=== PATIENT | female | born 1980 | race Caucasian/White ===

== ENCOUNTER 2018-02-03 15:50 | Emergency (ER) | payer MEDICAID, SELFPAY ==
[2018-02-03 15:52] VITALS: BP 148/84; PULSE 108; RESP 19; TEMP 36.8; O2SAT 97; BMI 18.5
[2018-02-03 17:17] LABS: Absolute Lymphocyte Count 1.84 X10^3/ul (0.83-4.51); Absolute Neutrophil Count 7.9 X10^3/uL (2.0-7.7); Basophil# 0.02 X10^3/uL; Basophil% 0.2 % (0-1); Eosinophil# 0.07 X10^3/uL; Eosinophils% 0.6 % (0-5); Hematocrit 32.9 % (37-47); Hemoglobin 10.8 g/dl (12.0-15.0); Lymphocyte # 1.84 X10^3/ul (4.0); Lymphocyte % 16.5 % (19-41); Mean Corp Hgb Conc 32.8 g/gl (32-36); Mean Corpuscular Hgb 29.3 pg (27.0-32.0); Mean Corpuscular Volume 89.2 fL (81-99); Mean Platelet Vol. 8.8 fl (6.2-12.0); Monocyte# 1.33 X10^3/uL; Monocyte% 11.9 % (0-10); Neutrophil # 7.89 X10^3/uL (2.7-7.7); Neutrophil % 70.7 % (47-70); Platelet Count 228 K/mm3 (150-450); RBC Distribution Width CV 13.5 % (11.6-14.6); RBC Distribution Width SD 44.1 fl (35.1-43.9); Red Blood Count 3.69 M/mm3 (4.2-5.4); White Blood Count 11.2 K/mm3 (4.4-11.0)
[2018-02-03 17:20] LABS: POSITIVE COUNT NO; POSITIVE DIFFERENTIAL NO; POSITIVE MORPHOLOGY NO
[2018-02-03 17:43] LABS: Anion Gap 8 (5-15); BUN 5 mg/dL (7-18); BUN/Creat Ratio 6.6 RATIO (10-20); Calcium,Total 8.3 mg/dL (8.5-10.1); Chloride 100 mmol/L (98-107); Creatinine, Serum 0.76 mg/dL (0.55-1.02); EST Glomerular Filtration Rate 91 mL/min (>60); Est Glom Filt Rate - Afr Amer 110 mL/min (>60); Estimated Creatinine Clearance 82.55 ml/min; Glucose 103 mg/dL (74-106); Potassium 3.7 mmol/L (3.5-5.1); Sodium Level 137 mmol/L (136-145)
--- NOTE | 2018-02-03 19:17 | ED.VISSUMM ---
- ER Visit Summary Date of Service: 02/03/18 Chief Complaint: Swelling pain right side of forehead and wound dorsum right hand History of Present Illness: The patient is a 37 F who has history of IV drug use, heroin, who presents with abscess to the right side of her forehead and picking at her skin. She also has 2 wounds dorsum of her hand. One appears to be secondary to track/injection site the other is not. She denies chills but complains of subjective fever. She denies weight gain or weight loss. She denies night sweats. He does have history of hepatitis C. She is HIV negative. There is a remote history of ovarian cancer status post hysterectomy. Physical Examination: Vital signs are remarkable for heart rate of 108. She is not febrile, tachypneic or hypoxic. Blood pressure 148/84. HEENT exam is remarkable for multiple pick bazzi and a abscess right forehead. There is soft tissue swelling with erythema. There is no abnormality the lid lash or lacrimal apparatus. Pupils equal round reactive. Extraocular muscle intact. Sclerae anicteric. Conjunctive is not injected. There is no evidence of a preseptal cellulitis. There is no pain with movement of the eye and there is full active motion. TMs normal. Nares patent. Dentition is normal. Trachea midline. There is no stridor. Heart is regular without murmur, gallop or rub. Lungs are clear to auscultation. Patient has 2 small abscesses dorsal surface of the right hand. Track bazzi are noted. There is no evidence of phlebitis. There is no epitrochlear or axillary lymphadenopathy. Patient is alert and oriented ?3. Motor is 5 over 5. Sensory is intact. DTRs are symmetric with no clonus or Babinski sign. Cranial 2 through 12 are intact. Cerebellar testing is normal. Test Results: White count is 11.2 thousand 71 segs no bands. Electro panels unremarkable. Emergency Department Course and Treatment: Because she reports subjective fever with history of hole in her heart and IV drug use will obtain CBC and BMP. White count is slightly elevated and she does not meet criteria for sepsis. Treatment Plan: A super overalls last trochlear nerve block was placed on the right. The forehead abscess was incised with a 15 blade. Blunt dissection was undertaken with significant amount of purulent material. Cavity was irrigated and a wick was placed. The 2 small abscesses dorsum right hand were anesthetized. Advised and minimal superficial purulent material noted. Disposition: Discharged home with anti-inflammatory, prescription for cephalexin and Bactrim Impression: 1. Forehead laceration, complex 2. 2 simple small subcutaneous abscesses dorsum right hand 3. Sinus tachycardia 4. IV drug use 5. History of hepatitis C This note was generated with [employer]. dictation software. It may contain incorrect words, spelling, and punctuation that were not noted in review of the chart prior to signing ED Disposition - Plan for ED Patient: Disposition: Home or Assisted Living Chief Complaint: Abscess Instructions: ED Abscess IandD, ED Infec Skin Cellulitis, ED Skin Infec MRSA Suspect Conf Prescriptions: Naproxen [Naprosyn] 500 mg PO BID #14 tablet Smz/Tmp Ds [Bactrim Ds] 1 tablet PO BID #14 tablet Cephalexin 500 mg PO 4X/DAY #20 capsule Referrals: [facility] Doctor,Out of [Primary Care Provider] - Additional Instructions: Since you do not have a physician in the area return in 2 days for wound check and removal of wick. Your prescription was electronically transmitted to [facility] your designated pharmacy of choice.
[2018-02-03 19:41] VITALS: BP 157/114; PULSE 79; RESP 16; O2SAT 100
== END 2018-02-03 19:42 | disposition home or self-care (01) ==
PROVIDERS: Emergency Provider Emergency Medicine
DX: L02.01 Cutaneous abscess of face (principal); L02.511 Cutaneous abscess of right hand; S01.81XA Laceration without foreign body of other part of head, initial encounter; X58.XXXA Exposure to other specified factors, initial encounter; Y93.89 Activity, other specified; Y92.89 Other specified places as the place of occurrence of the external cause; Y99.9 Unspecified external cause status; Z85.43 Personal history of malignant neoplasm of ovary; Z90.710 Acquired absence of both cervix and uterus; Z86.19 Personal history of other infectious and parasitic diseases; R00.0 Tachycardia, unspecified; F14.90 Cocaine use, unspecified, uncomplicated; Z72.0 Tobacco use
CPT/HCPCS: 10060; 80048; 83605; 85025; 99284; A4216

== ENCOUNTER 2018-03-10 10:42 | Observation (INO) | payer MEDICAID, SELFPAY ==
[2018-03-10 10:55] VITALS: BP 133/97; PULSE 75; RESP 16; TEMP 36.5; O2SAT 100; BMI 16.6
[2018-03-10] MEDS: Buprenorphine HCl 2 MG TAB.SUBL SL ×2 (11:08→18:44)
[2018-03-10 11:09] VITALS: BP 133/97; PULSE 75; RESP 16; TEMP 36.5
[2018-03-10] MEDS: Dicyclomine 10 MG Capsule 20 MG PO ×2 (11:15→18:43)
[2018-03-10] MEDS: Methocarbamol 750 MG Tablet PO ×2 (11:15→18:43)
[2018-03-10] MEDS: Ibuprofen 600 MG Tablet PO (11:15)
[2018-03-10] MEDS: Pramipexole Di-HCl 0.25 MG Tablet PO (11:16)
[2018-03-10] MEDS: hydrOXYzine PAM 25 MG Capsule 50 MG PO ×2 (11:16→18:43)
[2018-03-10] MEDS: Ondansetron ODT 4 MG Tablet PO ×2 (11:21→18:44)
--- NOTE | 2018-03-10 11:28 | PCM.HP.STD ---
Problem List (1) Acute opioid withdrawal Status: Acute (2) Hepatitis C Status: Chronic (3) Depression Status: Chronic (4) Nicotine abuse Status: Chronic (5) Hx of ovarian cancer Status: Chronic History of Present Illness Date of Admission: 03/10/18 Chief Complaint: Acute opioid withdrawal. The patient is a 37 year old F with past medical history as mentioned above presented to the [facility] office requesting admission for acute opiate withdrawal for medical stabilization. Patient has been using IV heroin almost every day for the last year and her last dose was yesterday at 2 PM. She has history of opioid abuse back in 2006 after she had ovarian cancer that required surgery and she was able to remain clean for about 4 years. She relapsed back and started using IV heroin again since last year. She denied use of any other recreational drugs. Her presenting symptoms today are body aches, described as dull aching pain, all over her body, 2-3 out of 10 in severity, not radiating, associated with malaise, restlessness and abdominal cramps. She mentioned that she has been having abdominal cramps for the last couple of days, mild, associated with intermittent diarrhea and without aggravating or relieving factors. She had a history of ovarian cancer status post ostectomy and bilateral salpingo-oophorectomy, status post chemotherapy back in 2006 and she has been in remission since then. She has a history of chronic hepatitis C but she never been treated for it. She had a history of anxiety and depression and she has been on Xanax, Wellbutrin and Lexapro for a long time and she has been following up with psychiatry as outpatient. One week ago, she was started on Bactrim for furuncles on the forehead and chin and she was recommended to keep taking Bactrim for 2 weeks, she took 1 week already. At this time, her vital signs are stable. Routine blood work was unremarkable. LFT was normal. Serum test was negative. She is being admitted for acute opiate withdrawal for medical stabilization. Past Medical History Past Medical History (Chronic Problems): Chronic Problems Hepatitis C (Chronic) Depression (Chronic) Nicotine abuse (Chronic) Hx of ovarian cancer (Chronic) Allergies No Known Allergies Allergy (Verified 02/03/18 15:51) Home Medications: Ambulatory Orders Medication Instructions Recorded Escitalopram Oxalate [Lexapro] 20 mg PO DAILY 11/07/16 buPROPion tablets [Wellbutrin 75 mg PO BID 11/07/16 tablets] Acetaminophen [Tylenol Tablet] 650 mg PO Q6H PRN PRN tablet 11/11/16 ALPRAZolam [Xanax] 0.25 mg PO QHS PRN PRN 02/03/18 Naproxen [Naprosyn] 500 mg PO BID #14 tablet 02/03/18 Smz/Tmp Ds [Bactrim Ds] 1 tablet PO BID #14 tablet 02/03/18 Surgical History: hysterectomy, - - section, bilateral salpingo-oophorectomy Psychiatric History: Anxiety, Depression 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 Denies: Anorexia, Chills, Fever, Weakness, Fatigue Eyes: Denies: Blurred vision, Double vision, Drainage, Redness HEENT: Denies: Difficulty Hearing, Ear Pain, Eye Pain, Nasal Congestion, Sore Throat Cardiovascular: Denies: Chest Pain, Chest Pressure, Edema, Light Headedness, Orthopnea, Paroxysmal Noc. Dyspnea, Syncope Respiratory: Denies: Cough, Pleuritic Pain, Shortness of Breath, Sputum production, Wheezing Gastrointestinal: Reports: Diarrhea, Nausea, - - Abdominal cramps.. Denies: Abdominal Pain, Constipation, Hematochezia, Vomiting Genitourinary: Denies: Dysuria, Frequency, Hematuria Musculoskeletal: Reports: Back Pain, Muscle pain. Denies: Arm Pain, Foot Pain Skin: Denies: Dryness, Rash Neurological: Reports: Headaches. Denies: Balance problems, Double vision, Change in Speech, Slurred speech, Confusion, Focal weakness, Numbness, Tingling Psychiatric: Reports: Anxiety, Depression. Denies: Suicidal Ideations Endocrine: Denies: Change in Body Habitus, Polydipsia VTE Information - Inpt Only VTE Present on Admission: No VTE Mechan Device Prophylaxis: None VTE Pharm Prophylaxis ordered?: No Patient Problems: Active and Suspected Problems Acute opioid withdrawal (Acute) - Physical Exam General: Alert, Oriented x3, Cooperative, No apparent distress HEENT: Atraumatic, PERRLA, EOMI, Normocephalic Oral: Moist Mucosa, No Gingival or Mucosal Lesions/ Ulcerations Neck: Supple, No JVD, Negative Carotid Bruits, Trachea Midline, Thyroid Normal Size and Texture Lungs: Clear to auscultation, Normal air movement, No rhonchi, No wheeze, No rales Cardiovascular: Regular rate, Regular Rhythm, Normal S1, Normal S2, No murmurs Abdomen: Bowel Sounds Present, Soft, Non Tender, Non-Distended, No Hepato-splenomegaly Extremities: No clubbing, No cyanosis, No edema Skin: No rashes, No breakdown, - - Healing furuncles on the forehead and chin. Lymphatic: No Cervical, Supraclavicular, or Inguinal Adenopathy Neurological: Cranial nerves II-XII grossly intact, Motor Exam 5/5 strength throughout Psych/Mental Status: Normal Affect, Appropriate, Alert and oriented to time, place, person, mood and affect Vital Signs Temp Pulse Resp BP 97.7 F L 75 16 133/97 H 03/10/18 11:09 03/10/18 11:09 03/10/18 11:03/10/18 11:09 Weight: 103 lb 1 oz Body Mass Index (BMI) 16.6 Assessment/Plan All Active Problems Acute opioid withdrawal (Acute) This is a 37 years old female patient presented to the [facility] office requesting admission for acute opiate withdrawal for medical stabilization. 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 She had a history of drug use in the past in 2006 after she had ovarian cancer and surgeries but she was clean for a few years and relapsed. At this time, her vital signs are stable. Plan: Admit to [facility] floor, regular diet, urine drug screen, blood alcohol level, serum test, initiate [facility] protocol with tapering course of Subutex, as needed Catapres, Bentyl, Vistaril, methocarbamol, Mirapex, Zofran and Motrin. #2 forehead/chin furuncles: She was started on Bactrim 1 week ago and requested to complete 2 weeks of treatment. Furuncles the forehead and chin are healing. No drainage. Plan to continue Bactrim. #3 history of ovarian cancer: Status post hysterectomy and bilateral salpingo-nephrectomy, status post chemotherapy back in 2006, in remission, stable. #4 anxiety/depression: Denied suicidal intentions or ideations, continue Xanax, Wellbutrin and Lexapro. #5 chronic hepatitis C: Never been treated for it. LFT was unremarkable. Recommend referral to infectious disease as outpatient. #6 tobacco abuse: NicoDerm patch 14 mg daily. #7 DVT prophylaxis: Low-risk patient, no prophylaxis indicated. This note was generated with [employer] dictation software. It may contain incorrect words, spelling, and punctuation that were not noted in checking the note before signing. Code Visit Inpatient E&M: 66965 Init Hosp L2
--- NOTE | 2018-03-10 11:33 | HP.PCM_ITS ---
Problem List (1) Acute opioid withdrawal Status: Acute (2) Hepatitis C Status: Chronic (3) Depression Status: Chronic (4) Nicotine abuse Status: Chronic (5) Hx of ovarian cancer Status: Chronic History of Present Illness Date of Admission: 03/10/18 Chief Complaint: Acute opioid withdrawal. The patient is a 37 year old F with past medical history as mentioned above presented to the [facility] office requesting admission for acute opiate withdrawal for medical stabilization. Patient has been using IV heroin almost every day for the last year and her last dose was yesterday at 2 PM. She has history of opioid abuse back in 2006 after she had ovarian cancer that required surgery and she was able to remain clean for about 4 years. She relapsed back and started using IV heroin again since last year. She denied use of any other recreational drugs. Her presenting symptoms today are body aches, described as dull aching pain, all over her body, 2-3 out of 10 in severity, not radiating, associated with malaise, restlessness and abdominal cramps. She mentioned that she has been having abdominal cramps for the last couple of days, mild, associated with intermittent diarrhea and without aggravating or relieving factors. She had a history of ovarian cancer status post ostectomy and bilateral salpingo-oophorectomy, status post chemotherapy back in 2006 and she has been in remission since then. She has a history of chronic hepatitis C but she never been treated for it. She had a history of anxiety and depression and she has been on Xanax, Wellbutrin and Lexapro for a long time and she has been following up with psychiatry as outpatient. One week ago, she was started on Bactrim for furuncles on the forehead and chin and she was recommended to keep taking Bactrim for 2 weeks, she took 1 week already. At this time, her vital signs are stable. Routine blood work was unremarkable. LFT was normal. Serum test was negative. She is being admitted for acute opiate withdrawal for medical stabilization. Past Medical History Past Medical History (Chronic Problems): Chronic Problems Hepatitis C (Chronic) Depression (Chronic) Nicotine abuse (Chronic) Hx of ovarian cancer (Chronic) Allergies No Known Allergies Allergy (Verified 02/03/18 15:51) Home Medications: Ambulatory Orders Medication Instructions Recorded Escitalopram Oxalate [Lexapro] 20 mg PO DAILY 11/07/16 buPROPion tablets [Wellbutrin 75 mg PO BID 11/07/16 tablets] Acetaminophen [Tylenol Tablet] 650 mg PO Q6H PRN PRN tablet 11/11/16 ALPRAZolam [Xanax] 0.25 mg PO QHS PRN PRN 02/03/18 Naproxen [Naprosyn] 500 mg PO BID #14 tablet 02/03/18 Smz/Tmp Ds [Bactrim Ds] 1 tablet PO BID #14 tablet 02/03/18 Surgical History: hysterectomy, - - section, bilateral salpingo- oophorectomy Psychiatric History: Anxiety, Depression 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 Denies: Anorexia, Chills, Fever, Weakness, Fatigue Eyes: Denies: Blurred vision, Double vision, Drainage, Redness HEENT: Denies: Difficulty Hearing, Ear Pain, Eye Pain, Nasal Congestion, Sore Throat Cardiovascular: Denies: Chest Pain, Chest Pressure, Edema, Light Headedness, Orthopnea, Paroxysmal Noc. Dyspnea, Syncope Respiratory: Denies: Cough, Pleuritic Pain, Shortness of Breath, Sputum production, Wheezing Gastrointestinal: Reports: Diarrhea, Nausea, - - Abdominal cramps.. Denies: Abdominal Pain, Constipation, Hematochezia, Vomiting Genitourinary: Denies: Dysuria, Frequency, Hematuria Musculoskeletal: Reports: Back Pain, Muscle pain. Denies: Arm Pain, Foot Pain Skin: Denies: Dryness, Rash Neurological: Reports: Headaches. Denies: Balance problems, Double vision, Change in Speech, Slurred speech, Confusion, Focal weakness, Numbness, Tingling Psychiatric: Reports: Anxiety, Depression. Denies: Suicidal Ideations Endocrine: Denies: Change in Body Habitus, Polydipsia VTE Information - Inpt Only VTE Present on Admission: No VTE Mechan Device Prophylaxis: None VTE Pharm Prophylaxis ordered?: No Patient Problems: Active and Suspected Problems Acute opioid withdrawal (Acute) - Physical Exam General: Alert, Oriented x3, Cooperative, No apparent distress HEENT: Atraumatic, PERRLA, EOMI, Normocephalic Oral: Moist Mucosa, No Gingival or Mucosal Lesions/ Ulcerations Neck: Supple, No JVD, Negative Carotid Bruits, Trachea Midline, Thyroid Normal Size and Texture Lungs: Clear to auscultation, Normal air movement, No rhonchi, No wheeze, No rales Cardiovascular: Regular rate, Regular Rhythm, Normal S1, Normal S2, No murmurs Abdomen: Bowel Sounds Present, Soft, Non Tender, Non-Distended, No Hepato-splenomegaly Extremities: No clubbing, No cyanosis, No edema Skin: No rashes, No breakdown, - - Healing furuncles on the forehead and chin. Lymphatic: No Cervical, Supraclavicular, or Inguinal Adenopathy Neurological: Cranial nerves II-XII grossly intact, Motor Exam 5/5 strength throughout Psych/Mental Status: Normal Affect, Appropriate, Alert and oriented to time, place, person, mood and affect Vital Signs Temp Pulse Resp BP 97.7 F L 75 16 133/97 H 03/10/18 11:09 03/10/18 11:09 03/10/18 11:03/10/18 11:09 Weight: 103 lb 1 oz Body Mass Index (BMI) 16.6 Assessment/Plan All Active Problems Acute opioid withdrawal (Acute) This is a 37 years old female patient presented to the [facility] office requesting admission for acute opiate withdrawal for medical stabilization. 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 She had a history of drug use in the past in 2006 after she had ovarian cancer and surgeries but she was clean for a few years and relapsed. At this time, her vital signs are stable. Plan: Admit to [facility] floor, regular diet, urine drug screen, blood alcohol level, serum test, initiate [facility] protocol with tapering course of Subutex, as needed Catapres, Bentyl, Vistaril, methocarbamol, Mirapex, Zofran and Motrin. #2 forehead/chin furuncles: She was started on Bactrim 1 week ago and requested to complete 2 weeks of treatment. Furuncles the forehead and chin are healing. No drainage. Plan to continue Bactrim. #3 history of ovarian cancer: Status post hysterectomy and bilateral salpingo- nephrectomy, status post chemotherapy back in 2006, in remission, stable. #4 anxiety/depression: Denied suicidal intentions or ideations, continue Xanax, Wellbutrin and Lexapro. #5 chronic hepatitis C: Never been treated for it. LFT was unremarkable. Recommend referral to infectious disease as outpatient. #6 tobacco abuse: NicoDerm patch 14 mg daily. #7 DVT prophylaxis: Low-risk patient, no prophylaxis indicated. This note was generated with [employer] dictation software. It may contain incorrect words, spelling, and punctuation that were not noted in checking the note before signing. Code Visit Inpatient E&M: 67633 Init Hosp L2
[2018-03-10 11:39] LABS: Absolute Lymphocyte Count 1.96 X10^3/ul (0.83-4.51); Absolute Neutrophil Count 5.6 X10^3/uL (2.0-7.7); Basophil# 0.02 X10^3/uL; Basophil% 0.2 % (0-1); Eosinophil# 0.07 X10^3/uL; Eosinophils% 0.8 % (0-5); Hematocrit 37.4 % (37-47); Hemoglobin 12.5 g/dl (12.0-15.0); Lymphocyte # 1.96 X10^3/ul (4.0); Lymphocyte % 23.3 % (19-41); Mean Corp Hgb Conc 33.4 g/gl (32-36); Mean Corpuscular Hgb 29.8 pg (27.0-32.0); Mean Platelet Vol. 9.5 fl (6.2-12.0); Monocyte# 0.73 X10^3/uL; Monocyte% 8.7 % (0-10); Neutrophil % 66.8 % (47-70); Platelet Count 290 K/mm3 (150-450); RBC Distribution Width CV 13.6 % (11.6-14.6); RBC Distribution Width SD 43.7 fl (35.1-43.9); White Blood Count 8.4 K/mm3 (4.4-11.0)
[2018-03-10 11:40] LABS: POSITIVE COUNT NO; POSITIVE DIFFERENTIAL NO; POSITIVE MORPHOLOGY NO
[2018-03-10 11:51] LABS: ALB/GLOB Ratio 0.7 RATIO (0.9-2.4); AST(SGOT) 15 U/L (15-37); Alanine Aminotransfer ALT/SGPT 30 U/L (13-56); Albumin, Serum 3.2 g/dL (3.2-5.0); Alkaline Phosphatase 67 U/L (45-117); Anion Gap 5 (5-15); BUN 6 mg/dL (7-18); BUN/Creat Ratio 7.2 RATIO (10-20); Calcium,Total 8.9 mg/dL (8.5-10.1); Chloride 104 mmol/L (98-107); Creatinine, Serum 0.84 mg/dL (0.55-1.02); EST Glomerular Filtration Rate 81 mL/min (>60); Est Glom Filt Rate - Afr Amer 98 mL/min (>60); Estimated Creatinine Clearance 67.01 ml/min; Globulin 4.8 g/dL (2.2-4.2); Glucose 102 mg/dL (74-106); Sodium Level 139 mmol/L (136-145)
[2018-03-10 12:22] LABS: Pregnancy, Serum, hCG Quali. NEGATIVE Negative (0-9 Nonpreg)
[2018-03-10 14:00] VITALS: BP 123/81; PULSE 70; RESP 16; TEMP 36.9; O2SAT 99
[2018-03-10] MEDS: cloNIDine HCl 0.1 MG Tablet PO ×2 (14:41→21:06)
[2018-03-10] MEDS: Smz/Tmp Ds Tablet 1 TABLET PO ×2 (14:41→21:06)
[2018-03-10 18:30] VITALS: BP 110/76; PULSE 78; RESP 16; TEMP 36.6; O2SAT 99
[2018-03-10] MEDS: buPROPion 75 MG Tablet PO (21:05)
[2018-03-10] MEDS: ALPRAZolam 0.25 MG Tablet PO (21:06)
[2018-03-10 21:24] VITALS: BP 108/68; PULSE 62; RESP 14; TEMP 36.9
[2018-03-10 21:47] LABS: Amphetamine Urine VISTA NEGATIVE (<1000 ng/mL); Barbiturate Urine VISTA NEGATIVE (< 200 ng/mL); Benzodiazepine Urine VISTA NEGATIVE (< 200 ng/mL); Cocaine Urine VISTA POSITIVE (< 300 ng/mL); Ecstacy Urine VISTA NEGATIVE (< 500 ng/mL); Methadone Urine VISTA NEGATIVE (< 300 ng/mL); PCP Urine VISTA NEGATIVE (< 25 ng/mL); THC Urine VISTA NEGATIVE (< 50 ng/mL); Vista UDS pH Range 7
[2018-03-11] VITALS (7 sets, daily range): BP systolic 90–118; BP diastolic 60–79; PULSE 61–74; RESP 14–18; TEMP 36.2–37.1; O2SAT 99–100
[2018-03-11] MEDS: Dicyclomine 10 MG Capsule 20 MG PO ×2 (01:45→09:00)
[2018-03-11] MEDS: Methocarbamol 750 MG Tablet PO ×4 (01:51→21:48)
[2018-03-11] MEDS: Buprenorphine HCl 2 MG TAB.SUBL SL ×3 (03:46→18:44)
[2018-03-11] MEDS: hydrOXYzine PAM 25 MG Capsule 50 MG PO ×3 (03:55→18:44)
--- NOTE | 2018-03-11 08:11 | PN_ITS ---
Patient Problems: Active and Suspected Problems Acute opioid withdrawal (Acute) Subjective: Chief complaint: Follow-up after admission for acute opioid withdrawal for medical stabilization. Patient seen and examined. No acute events overnight. She is still symptomatic with body aches, rhinorrhea, abdominal cramps and nausea. She could not sleep last night. Her vital signs are stable. - Physical Exam General: Alert, Oriented x3, Cooperative, No apparent distress HEENT: Atraumatic, PERRLA, EOMI, Normocephalic Oral: Moist Mucosa, No Gingival or Mucosal Lesions/ Ulcerations Neck: Supple, No JVD, Negative Carotid Bruits, Trachea Midline Lungs: Clear to auscultation, Normal air movement, No rhonchi, No wheeze, No rales Cardiovascular: Regular rate, Regular Rhythm, Normal S1, Normal S2, PMI Normal Abdomen: Bowel Sounds Present, Soft, Non Tender, Non-Distended, No Hepato- splenomegaly Extremities: No clubbing, No cyanosis, No edema Skin: No rashes, No breakdown Lymphatic: No Cervical, Supraclavicular, or Inguinal Adenopathy Neurological: Cranial nerves II-XII grossly intact, Neuro grossly intact Psych/Mental Status: Normal Affect, Anxious, Alert and oriented to time, place, person, mood and affect Vital Signs Temp Pulse Resp BP Pulse Ox 97.5 F L 73 14 94/61 99 03/11/18 05:34 03/11/18 05:34 03/11/18 05:34 03/11/18 05:34 03/10/18 18:30 Oxygen Delivery Method Room Air Weight: 103 lb 1 oz Body Mass Index (BMI) 16.6 Intake and Output for Last 24 Hours 03/09/18 03/10/18 03/11/18 23:59 23:59 23:59 Intake Total 200 / 200 800 / 800 Balance 200 / 200 800 / 800 Laboratory Tests Past 24 Hrs 03/10/18 03/10/18 03/10/18 11:15 11:15 11:15 WBC 8.4 RBC 4.20 Hgb 12.5 Hct 37.4 MCV 89.0 MCH 29.8 MCHC 33.4 RDW 13.6 RDW Differential 43.7 Plt Count 290 MPV 9.5 Immature Gran % (Auto) 0.200 Neut % (Auto) 66.8 Lymph % (Auto) 23.3 Miner % (Auto) 8.7 Eos % (Auto) 0.8 Baso % (Auto) 0.2 Absolute Neuts (auto) 5.6 Absolute Lymphs (auto) 1.96 Total Counted Not Reportable Sodium 139 Potassium 4.0 Chloride 104 Carbon Dioxide 30.0 Anion Gap 5 BUN 6 L Creatinine 0.84 Estim Creat Clear Calc 67.01 Est GFR (MDRD) Af Amer 98 Est GFR (MDRD) Non-Af 81 BUN/Creatinine Ratio 7.2 L Glucose 102 Calcium 8.9 Total Bilirubin 0.30 AST 15 ALT 30 Alkaline Phosphatase 67 Total Protein 8.0 Albumin 3.2 Globulin 4.8 H Albumin/Globulin Ratio 0.7 L Serum , Qual Urine Opiates Screen Urine Methadone Screen Ur Barbiturates Screen Ur Phencyclidine Scrn Ur Amphetamines Screen U Methamphetamin-MDMA U Benzodiazepines Scrn Urine Cocaine Screen U Cannabinoids Screen Ur Drug Screen Comment Ethyl Alcohol 7.0 03/10/18 03/10/18 11:15 21:20 WBC RBC Hgb Hct MCV MCH MCHC RDW RDW Differential Plt Count MPV Immature Gran % (Auto) Neut % (Auto) Lymph % (Auto) Miner % (Auto) Eos % (Auto) Baso % (Auto) Absolute Neuts (auto) Absolute Lymphs (auto) Total Counted Sodium Potassium Chloride Carbon Dioxide Anion Gap BUN Creatinine Estim Creat Clear Calc Est GFR (MDRD) Af Amer Est GFR (MDRD) Non-Af BUN/Creatinine Ratio Glucose Calcium Total Bilirubin AST ALT Alkaline Phosphatase Total Protein Albumin Globulin Albumin/Globulin Ratio Serum , Qual NEGATIVE Urine Opiates Screen POSITIVE H Urine Methadone Screen NEGATIVE Ur Barbiturates Screen NEGATIVE Ur Phencyclidine Scrn NEGATIVE Ur Amphetamines Screen NEGATIVE U Methamphetamin-MDMA NEGATIVE U Benzodiazepines Scrn NEGATIVE Urine Cocaine Screen POSITIVE H U Cannabinoids Screen NEGATIVE Ur Drug Screen Comment Ethyl Alcohol Medical Necessity - Tobacco Use Smoking Status: Current every day smoker Assessment/Plan All Active Problems Acute opioid withdrawal (Acute) This is a 37 years old female patient presented to the [facility] office requesting admission for acute opiate withdrawal for medical stabilization. #1 acute opioid withdrawal: She is on tapering course of Subutex, as needed Catapres, Bentyl, Vistaril, methocarbamol, Mirapex, Zofran and Motrin. Her routine blood work was unremarkable. LFT was normal. Serum test was negative. Urine drug screen was positive for opioids and cocaine. Blood alcohol level is 7. Patient still symptomatic, minimal improvement. Plan: Continue same treatment, start Ambien as needed for insomnia. #2 forehead/chin furuncles: She was started on Bactrim 1 week ago and requested to complete 2 weeks of treatment. Continued on Bactrim. #3 history of ovarian cancer: Status post hysterectomy and bilateral salpingo- nephrectomy, status post chemotherapy back in 2006, in remission, stable. #4 anxiety/depression: Denied suicidal intentions or ideations, continue Xanax, Wellbutrin and Lexapro. #5 chronic hepatitis C: Never been treated for it. LFT was unremarkable. Recommend referral to infectious disease as outpatient. #6 tobacco abuse: NicoDerm patch 14 mg daily. #7 DVT prophylaxis: Low-risk patient, no prophylaxis indicated. This note was generated with [employer] dictation software. It may contain incorrect words, spelling, and punctuation that were not noted in checking the note before signing. Code Visit Inpatient E&M: 17780 Subs Hosp L2
[2018-03-11] MEDS: Escitalopram Oxalate 20 MG Tablet PO (09:00)
[2018-03-11] MEDS: buPROPion 75 MG Tablet PO ×2 (09:00→21:48)
[2018-03-11] MEDS: Smz/Tmp Ds Tablet 1 TABLET PO ×2 (09:00→18:44)
[2018-03-11] MEDS: Pramipexole Di-HCl 0.25 MG Tablet PO ×2 (09:01→21:48)
[2018-03-11] MEDS: Ondansetron ODT 4 MG Tablet PO ×2 (09:01→18:44)
[2018-03-11] MEDS: cloNIDine HCl 0.1 MG Tablet PO ×2 (14:34→21:48)
[2018-03-11] MEDS: Acetaminophen 500 MG Tablet PO (18:44)
[2018-03-11] MEDS: Zolpidem Tartrate 5 MG Tablet PO (21:48)
[2018-03-11] MEDS: ALPRAZolam 0.25 MG Tablet PO (23:56)
[2018-03-12] VITALS (8 sets, daily range): BP systolic 92–103; BP diastolic 58–71; PULSE 62–70; RESP 14–18; TEMP 36.4–37.2; O2SAT 98–99
[2018-03-12] MEDS: Buprenorphine HCl 2 MG TAB.SUBL SL ×2 (03:39→15:10)
[2018-03-12] MEDS: Ondansetron ODT 4 MG Tablet PO ×2 (03:39→20:42)
[2018-03-12] MEDS: hydrOXYzine PAM 25 MG Capsule 50 MG PO ×3 (03:39→20:42)
[2018-03-12] MEDS: cloNIDine HCl 0.1 MG Tablet PO ×5 (03:39→20:42)
--- NOTE | 2018-03-12 08:03 | PCM.PROGNOTE ---
Patient Problems: Active and Suspected Problems Acute opioid withdrawal (Acute) Subjective: Chief complaint: Follow-up after admission for acute opiate withdrawal. Patient seen and examined. No acute events overnight. Today, she mentioned that her symptoms started to improve, having less abdominal cramps and nausea. Still having some restlessness and tremors. Her vital signs are stable. - Physical Exam General: Alert, Oriented x3, Cooperative, No apparent distress HEENT: Atraumatic, PERRLA, EOMI, Normocephalic Oral: Moist Mucosa, No Gingival or Mucosal Lesions/ Ulcerations Neck: Supple, No JVD, Negative Carotid Bruits, Trachea Midline, Thyroid Normal Size and Texture Lungs: Clear to auscultation, Normal air movement, No rhonchi, No wheeze, No rales Cardiovascular: Regular rate, Regular Rhythm, Normal S1, Normal S2, No murmurs Abdomen: Bowel Sounds Present, Soft, Non Tender, Non-Distended, No Hepato-splenomegaly Extremities: No clubbing, No cyanosis, No edema Skin: No rashes, No breakdown Lymphatic: No Cervical, Supraclavicular, or Inguinal Adenopathy Neurological: Cranial nerves II-XII grossly intact, Neuro grossly intact Psych/Mental Status: Normal Affect, Appropriate Vital Signs Temp Pulse Resp BP Pulse Ox 98.0 F 66 14 103/66 99 03/12/18 03:35 03/12/18 03:35 03/12/18 03:35 03/12/18 03:35 03/11/18 14:40 Oxygen Delivery Method Room Air Weight: 103 lb 1 oz Body Mass Index (BMI) 16.6 Intake and Output for Last 24 Hours 03/10/18 03/11/18 03/12/18 23:59 23:59 23:59 Intake Total 200 / 200 1640 / 1640 100 / 100 Balance 200 / 200 1640 / 1640 100 / 100 Medical Necessity - Tobacco Use Smoking Status: Current every day smoker Tobacco Use: Cigarettes Assessment/Plan All Active Problems Acute opioid withdrawal (Acute) This is a 37 years old female patient presented to the [facility] office requesting admission for acute opiate withdrawal for medical stabilization. #1 acute opioid withdrawal: Her symptoms started to improve, feeling slightly better. She is on tapering course of Subutex, as needed Catapres, Bentyl, Vistaril, methocarbamol, Mirapex, Zofran and Motrin. Her routine blood work was unremarkable. LFT was normal. Serum test was negative. Urine drug screen was positive for opioids and cocaine. Plan to continue same treatment, DC home tomorrow. #2 forehead/chin furuncles: She was started on Bactrim 1 week ago and requested to complete 2 weeks of treatment. Continued on Bactrim. #3 history of ovarian cancer: Status post hysterectomy and bilateral salpingo-nephrectomy, status post chemotherapy back in 2006, in remission, stable. #4 anxiety/depression: Denied suicidal intentions or ideations, continue Xanax, Wellbutrin and Lexapro. #5 chronic hepatitis C: Never been treated for it. LFT was unremarkable. Recommend referral to infectious disease as outpatient. #6 tobacco abuse: NicoDerm patch 14 mg daily. #7 DVT prophylaxis: Low-risk patient, no prophylaxis indicated. This note was generated with [employer] dictation software. It may contain incorrect words, spelling, and punctuation that were not noted in checking the note before signing. Code Visit Inpatient E&M: 00858 Subs Hosp L2
[2018-03-12] MEDS: Smz/Tmp Ds Tablet 1 TABLET PO ×2 (08:59→16:09)
[2018-03-12] MEDS: buPROPion 75 MG Tablet PO ×2 (09:00→20:43)
[2018-03-12] MEDS: Methocarbamol 750 MG Tablet PO ×2 (09:00→17:43)
[2018-03-12] MEDS: Escitalopram Oxalate 20 MG Tablet PO (09:00)
[2018-03-12] MEDS: Ibuprofen 600 MG Tablet PO ×2 (12:50→20:50)
[2018-03-12] MEDS: Dicyclomine 10 MG Capsule 20 MG PO (15:10)
[2018-03-12] MEDS: Pramipexole Di-HCl 0.25 MG Tablet PO (15:10)
[2018-03-12] MEDS: Acetaminophen 500 MG Tablet PO (15:10)
[2018-03-12] MEDS: ALPRAZolam 0.25 MG Tablet PO (20:42)
[2018-03-13] MEDS: Methocarbamol 750 MG Tablet PO ×2 (00:44→06:51)
[2018-03-13] MEDS: Zolpidem Tartrate 5 MG Tablet PO (00:44)
[2018-03-13 03:05] VITALS: BP 84/50; PULSE 63; RESP 18; TEMP 36.6; O2SAT 99
[2018-03-13] MEDS: Pramipexole Di-HCl 0.25 MG Tablet PO (03:11)
[2018-03-13] MEDS: Dicyclomine 10 MG Capsule 20 MG PO (03:11)
[2018-03-13] MEDS: Buprenorphine HCl 2 MG TAB.SUBL SL (03:11)
[2018-03-13] MEDS: hydrOXYzine PAM 25 MG Capsule 50 MG PO ×2 (03:11→09:17)
[2018-03-13 06:49] VITALS: BP 89/50; PULSE 61; RESP 18; TEMP 36.8; O2SAT 98
[2018-03-13 06:50] VITALS: BP 89/50; PULSE 61; RESP 18; TEMP 36.8
[2018-03-13 08:08] VITALS: BP 91/56; PULSE 64; RESP 16; TEMP 36.3
[2018-03-13] MEDS: Docusate Sodium 100 MG Capsule PO (08:19)
[2018-03-13] MEDS: buPROPion 75 MG Tablet PO (08:19)
[2018-03-13] MEDS: Escitalopram Oxalate 20 MG Tablet PO (08:19)
[2018-03-13] MEDS: Smz/Tmp Ds Tablet 1 TABLET PO (08:19)
[2018-03-13] MEDS: Ibuprofen 600 MG Tablet PO (08:21)
--- NOTE | 2018-03-13 08:44 | DCINST_ITS ---
- Discharge Diagnoses Current Active Problems: Current Active and Chronic Problems Acute opioid withdrawal (Acute) Hepatitis C (Chronic) You will use the following diet at home:: Regular Your food should be the consistency of: Regular Discharge Activity: Return to Normal Activity Weight Bearing Status: Full weight bearing Call your doctor if you observe: Fever of 101 or Higher, Shortness of breath, Dizziness, Fainting spells, Chest pain, Increased palpitations (irregular heartbeat), Uncontrolled pain Allergies/Adverse Reactions: Allergies No Known Allergies Allergy (Verified 02/03/18 15:51) Medications to take at Discharge Escitalopram Oxalate [Lexapro] 20 mg PO DAILY 11/07/16 buPROPion tablets [Wellbutrin tablets] 75 mg PO BID 11/07/16 Acetaminophen [Tylenol Tablet] 650 mg PO Q6H PRN PRN tablet 11/11/16 ALPRAZolam [Xanax] 0.25 mg PO QHS PRN PRN 02/03/18 Naproxen [Naprosyn] 500 mg PO BID #14 tablet 02/03/18 Smz/Tmp Ds [Bactrim Ds] 1 tablet PO BID #14 tablet 02/03/18 Primary Care Physician: Veronica Mello,Out of [Primary Care Provider] - Please follow up with your Primary Care Physician in: 2-4 weeks. Test Results: Test results from this visit will be discussed in further detail at your follow- up appointment, if applicable.
--- NOTE | 2018-03-13 11:59 | DS.PCM_ITS ---
Discharge Date and Diagnosis Date of Admission: 03/10/18 Date of Discharge: 03/13/18 - Primary Discharge Diagnosis Acute opioid withdrawal, admitted for medical stabilization. - Secondary Discharge Diagnosis Chronic Problems Hepatitis C (Chronic) Depression (Chronic) Nicotine abuse (Chronic) Hx of ovarian cancer (Chronic) Hospital Course and Treatment Operations: None Procedures: None Summary of Care Provided: Patient seen and examined on the day of discharge and appeared to be stable to be discharged home. Her symptoms continued to improve and today, she is feeling much better. Her blood pressure was borderline low but she was asymptomatic. She mentioned that her blood pressure is usually running low. Other vital signs are stable. The patient is a 37 year old F admitted for acute opiate withdrawal for medical stabilization. Her presenting complaints were body aches, malaise, restlessness and abdominal cramps as well as mild diarrhea. 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 In the past, she has been clean for a few years but she relapsed. Her routine blood work was unremarkable. LFT was normal. Serum test was negative. Urine drug screen was positive for opioids and cocaine. Blood alcohol level is 7. She was treated with [facility] protocol with tapering course of Subutex, as needed Catapres, Bentyl, Vistaril, methocarbamol, Mirapex, Zofran and Motrin. With treatment, his symptoms did improve slowly. She completed tapering course of Subutex successively. Patient discharged home in a stable medical condition, continued on her chronic home medications without any changes, continued on Bactrim for face/chin furuncles that was started as outpatient, continued on Xanax, Wellbutrin and Lexapro, recommended follow-up with PCP in 2-4 weeks, recommended to keep in touch with [facility] program. - Physical Exam General: Alert, Oriented x3, Cooperative, No apparent distress HEENT: Atraumatic, PERRLA, EOMI, Normocephalic Oral: Moist Mucosa, No Gingival or Mucosal Lesions/ Ulcerations Neck: Supple, No JVD, Negative Carotid Bruits, Trachea Midline, Thyroid Normal Size and Texture Lungs: Clear to auscultation, Normal air movement, No rhonchi, No wheeze, No rales Cardiovascular: Regular rate, Regular Rhythm, Normal S1, Normal S2, PMI Normal Abdomen: Bowel Sounds Present, Soft, Non Tender, Non-Distended, No Hepato- splenomegaly Extremities: No clubbing, No cyanosis, No edema Skin: No rashes, No breakdown Lymphatic: No Cervical, Supraclavicular, or Inguinal Adenopathy Neurological: Cranial nerves II-XII grossly intact, Neuro grossly intact Psych/Mental Status: Normal Affect, Appropriate Vital Signs Temp Pulse Resp BP Pulse Ox 97.4 F L 64 16 91/56 L 98 03/13/18 08:08 03/13/18 08:08 03/13/18 08:08 03/13/18 08:08 03/13/18 06:49 Oxygen Delivery Method Room Air Weight: 103 lb 1 oz Body Mass Index (BMI) 16.6 Intake and Output for Last 24 Hours 03/11/18 03/12/18 03/13/18 23:59 23:59 23:59 Intake Total 1640 / 1640 1000 / 1000 680 / 680 Balance 1640 / 1640 1000 / 1000 680 / 680 Discharge Activity: Return to Normal Activity Weight Bearing Status: Full weight bearing Call your doctor if you observe: Fever of 101 or Higher, Shortness of breath, Dizziness, Fainting spells, Chest pain, Increased palpitations (irregular heartb eat), Uncontrolled pain Home Medications: Medications to take at Discharge Escitalopram Oxalate [Lexapro] 20 mg PO DAILY 11/07/16 buPROPion tablets [Wellbutrin tablets] 75 mg PO BID 11/07/16 Acetaminophen [Tylenol Tablet] 650 mg PO Q6H PRN PRN tablet 11/11/16 ALPRAZolam [Xanax] 0.25 mg PO QHS PRN PRN 02/03/18 Naproxen [Naprosyn] 500 mg PO BID #14 tablet 02/03/18 Smz/Tmp Ds [Bactrim Ds] 1 tablet PO BID #14 tablet 02/03/18 Primary Care Physician: Veronica Mello,Out of [Primary Care Provider] - Please follow up with your Primary Care Physician in: 2-4 weeks. Disposition: Home Minutes spent on discharge:: 25 Patient Condition:: Stable Medical Necessity - Tobacco Use Smoking Status: Current every day smoker Tobacco Use: Cigarettes Meaningful Use Info Meaningful Use Diagnoses (Choose all that apply): None applicable Code Visit Inpatient E&M: 13777 Disch Hosp
--- OUTSIDE RECORDS SUMMARY | 2018-04-26 11:26 | XMS RPT_ITS ---
:1980 Author Organization OHIP Support Name Relationship Address Phone TAMMI SANTIZO Unavailable Unavailable + TAMIKO GARCIA Unavailable [address] + [place] [address] UE Unavailable Unavailable Unavailable RACHEL, VALERIE Unavailable Unavailable + RADHATAMIKO Unavailable [address] + [place] [address] UE Unavailable Unavailable Unavailable RACHEL, VALERIE Unavailable Unavailable + RADHATAMIKO Unavailable [address] + [place] [address] UE Unavailable Unavailable Unavailable RACHEL VALERIE Unavailable Unavailable + RADHATAMIKO Unavailable [address] + [place] [address] UE Unavailable Unavailable Unavailable RACHEL VALERIE Unavailable Unavailable + RADHATAMIKO Unavailable [address] + [place] [address] UE Unavailable Unavailable Unavailable RACHEL VALERIE Unavailable Unavailable + TAMIKO CARLISLE Unavailable [address] + [place] [address] NOT GIVEN Unavailable Unavailable Unavailable RADHATAMIKO Unavailable [address] + [place] [address] UE Unavailable Unavailable Unavailable RACHEL, VALERIE Unavailable Unavailable + TAMIKO CARLISLE Unavailable [address] + [place] [address] NOT GIVEN Unavailable Unavailable Unavailable GHISLAINE MORRIS Unavailable Unavailable + TAMIKO CARLISLE Unavailable [address] [facility] + [place] [address] NOT GIVEN Unavailable Unavailable Unavailable TAMIKO CARLISLE Unavailable [address] [facility] + [place] [address] NOT GIVEN Unavailable Unavailable Unavailable GHISLAINE MORRIS Unavailable Unavailable + LAURA TRIPLETT Unavailable Unavailable + MICHELA MORRIS Unavailable Unavailable + GHISLAINE MORRIS Unavailable Unavailable + SEGHERMAN SUKHDEV Unavailable Unavailable + SEGRAVES SUKHDEV Unavailable Unavailable + Care Team Providers Name Role Phone [facility] Primary Care Unavailable [facility] Primary Care Unavailable SABRINA RAMIREZ Admitting Unavailable SANDRO MENDES Consulting Unavailable KOLCLIFFORDRU, CALEB Attending Unavailable LETICIA HILARIO Consulting Unavailable [facility] Primary Care Unavailable KOLLURU, CALEB Admitting Unavailable KOLCLIFFORDRU, CALEB Attending Unavailable [facility] Primary Care Unavailable AWILDA LACKEY Consulting Unavailable AWILDA LACKEY Attending Unavailable [facility] Unavailable Nolan, Dr. Annika Torres Admitting Unavailable Nolan, Dr. Annika Torres Attending Unavailable Nolan, Dr. Annika Torres Referring Unavailable NATALEE ONOFRE Primary Care Unavailable Ramirez, Darian Attending Unavailable Ashelfah, Ghasem Admitting Unavailable Ashelfah, Ghasem Attending Unavailable Ashelfah, Ghasem Referring Unavailable NATALEE ONOFRE Primary Care Unavailable Ashelfah, Ghasem Admitting Unavailable Ashelfah, Ghasem Attending Unavailable Ashelfah, Ghasem Referring Unavailable NATALEE ONOFRE Primary Care Unavailable Ashelfah, Ghasem Consulting Unavailable Ashelfah, Ghasem Admitting Unavailable Ashelfah, Ghasem Attending Unavailable Ashelfah, Ghasem Referring Unavailable NATALEE ONOFRE Primary Care Unavailable Ashelfah, Ghasem Consulting Unavailable Ashelfah, Ghasem Admitting Unavailable Ashelfah, Ghasem Attending Unavailable Ashelfah, Ghasem Referring Unavailable NATALEE ONOFRE Primary Care Unavailable Ashelfah, Ghasem Consulting Unavailable Ashelfah, Ghasem Admitting Unavailable Ashelfah, Ghasem Attending Unavailable Ashelfah, Ghasem Referring Unavailable NATALEE ONOFRE Primary Care Unavailable Ashelfah, Ghasem Consulting Unavailable Star SIDDIQUI DO Attending Unavailable DANY RIZZO, LISA Primary Care Unavailable DANY RIZZO, LISA Attending Unavailable LISA SAENZ MD Referring Unavailable LISA SAENZ MD Primary Care Unavailable JAX WEBB MD Attending Unavailable DANY RIZZO, LISA Primary Care Unavailable PROVIDER, UNKNOWN Admitting Unavailable PROVIDER, UNKNOWN Attending Unavailable PROVIDER, UNKNOWN Admitting Unavailable PROVIDER, UNKNOWN Attending Unavailable PROVIDER, UNKNOWN Admitting Unavailable PROVIDER, UNKNOWN Attending Unavailable PROBLEMS PROBLEMS DATE TYPE CONDITION / CODE ATTENDING STATUS SOURCE 04/12/2018 Active Encounter for Unknown Active [facility] screening for System respiratory Repository tuberculosis / Z11.1(ICD-10) 02/15/2018 Principle Other specified DARYA [facility] Regional diagnosis eating disorder / [facility] F50.89(ICD-10) Repository 09/24/2017 Admitting Nausea with MAURILIO CALEB Active [facility] diagnosis vomiting, Medical Center unspecified / Repository R11.2(ICD-10) 09/23/2017 Principle Noninfective NA Active [facility] Regional diagnosis gastroenteritis and Medical Center colitis, unspecified Repository / K52.9(ICD-10) 09/23/2017 Principle Nausea with NA Active [facility] Regional diagnosis vomiting, Medical Center unspecified / Repository R11.2(ICD-10) 09/23/2017 Principle Dehydration / NA Active [facility] Regional diagnosis E86.0(ICD-10) Medical Center Repository 08/28/2017 Admitting Cutaneous abscess of Dr. Nolan Active University diagnosis right upper limb / [facility] L02.413(ICD-10) [place] Repository 08/28/2017 Final Cutaneous abscess of Dr. Nolan Active University diagnosis right hand / [facility] (discharge) L02.511(ICD-10) [place] Repository 08/28/2017 Final Cutaneous abscess of Dr. Nolan Active University diagnosis right upper limb / [facility] (discharge) L02.413(ICD-10) [place] Repository 08/28/2017 Final Cutaneous abscess of Dr. Nolan Active University diagnosis left upper limb / [facility] (discharge) L02.414(ICD-10) [place] Repository 08/28/[address] Nolan Active University diagnosis staph infct causing [facility] (discharge) diseases classd [place] Repository elswhr / B95.62(ICD-10) 08/28/2017 Final Nicotine dependence, Dr. Nolan Active University diagnosis cigarettes, [facility] (discharge) uncomplicated / [facility] Rep[facility] F17.210(ICD-10) 08/28/2017 Final Anemia, unspecified Dr. Nolan Active University diagnosis / D64.9(ICD-10) [facility] (discharge) [facility] Repository 08/28/2017 Final Personal history of Dr. Nolan Active University diagnosis malignant neoplasm [facility] (discharge) of ovary / [facility] Rep[facility] Z85.43(ICD-10) 08/28/2017 Final Personal history of Dr. Nolan Active University diagnosis antineoplastic [facility] (discharge) chemotherapy / [facility] Rep[facility] Z92.21(ICD-10) 08/28/2017 Final Personal history of Dr. 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 Nolan Active [facility] diagnosis hepatitis C without [facility] (discharge) hepatic coma / [facility] Rep[facility] B19.20(ICD-10) 08/28/2017 Final Migraine, unsp, not Dr. Nolan Active University diagnosis intractable, without [facility] (discharge) status migrainosus / [facility] Rep[facility] G43.909(ICD-10) 05/26/2017 Active Encounter for Unknown Active [facility] test, System result unknown / Repository Z32.00(ICD-10) PROCEDURES PROCEDURES DATE CODE DESCRIPTION STATUS SOURCE 04/12/2018 43852(C4) TB INTRADERMAL TEST Completed [facility] Repository 04/12/2018 70428(C4) URINE HCG-IN OFFICE Completed [facility] Repository 02/15/2018 53320(C4) COMPREHENSIVE Completed [facility] Repository 02/15/2018 19253(C4) SPECIMEN REJECTION Completed [facility] Repository 02/15/2018 28531(C4) CBC WITH AUTO Completed [facility] Repository 02/15/2018 MMW1614(C4) URINE DRUG SCREEN Completed [facility] Repository 01/04/2018 ADT8(C4) DISCHARGE PATIENT Completed [facility] Repository 01/04/2018 DIET24(C4) DIET GENERAL Completed [facility] Repository 01/04/2018 DHF939(C4) NURSING COMMUNICATION Completed [facility] Repository 01/04/2018 RT99(C4) INITIATE OXYGEN Completed [facility] PROTOCOL Medical Center Repository 01/03/2018 COD2(C4) FULL CODE Completed [facility] Repository 01/03/2018 ITB342(C4) VITAL SIGNS Completed [facility] Repository 01/03/2018 BGN646(C4) NOTIFY PHYSICIAN Completed [facility] (SPECIFY) [facility] Repository 01/03/2018 RT99(C4) INITIATE OXYGEN Completed [facility] Repository 01/03/2018 RT99(C4) INITIATE OXYGEN Completed [facility] Repository 01/03/2018 52762(C4) CBC WITH AUTO Completed [facility] Repository 01/03/2018 LCB038(C4) PLACE INTERMITTENT Completed [facility] PNEUMATIC COMPRESSION Medical Center DEVICE Repository 01/03/2018 52580(C4) BASIC METABOLIC PANEL Completed [facility] W/ REFLEX TO MG FOR Medical Center LOW K Repository 01/03/2018 RVW145(C4) TELEMETRY MONITORING Completed [facility] Repository 01/03/2018 ADT1(C4) PATIENT STATUS (FROM Completed [facility] ED OR OR/PROCEDURAL) [facility] Center Repository 01/03/2018 con25(C4) IP CONSULT TO Completed [facility] HOSPITALIST Medical Center Repository 01/03/2018 SOZ9436(C4) URINE RT REFLEX TO Completed [facility] CULTURE Medical Center Repository 01/03/2018 HAL5264(C4) URINE DRUG SCREEN Completed [facility] Repository 01/03/2018 53898(C4) CBC WITH AUTO Completed [facility] Repository 01/03/2018 33206(C4) COMPREHENSIVE Completed [facility] METABOLIC PANEL Medical Center Repository 01/03/2018 95735(C4) PROTIME-INR Completed [facility] Repository 01/03/2018 40332(C4) APTT Completed [facility] Repository 01/03/2018 LAB62(C4) CK Completed [facility] Repository 01/03/2018 67005(C4) MAGNESIUM Completed [facility] Repository 01/03/2018 LAB95(C4) LACTIC ACID, PLASMA Completed [facility] Repository 01/03/2018 55518(C4) LIPASE Completed [facility] Repository 09/26/2017 ADT8(C4) DISCHARGE PATIENT Completed [facility] Repository 09/26/2017 con5(C4) IP CONSULT TO Completed [facility] INFECTIOUS DISEASES Medical Center Repository 09/26/2017 RT99(C4) INITIATE OXYGEN Completed [facility] Repository 09/26/2017 DIET24(C4) DIET GENERAL Completed [facility] Repository 09/26/2017 16516(C4) MAGNESIUM Completed [facility] Repository 09/26/2017 14577(C4) BASIC METABOLIC PANEL Completed [facility] Repository 09/26/2017 94661(C4) CBC WITH AUTO Completed [facility] DIFFERENTIAL [facility] Repository 09/25/2017 IEO099(C4) PHYSICIAN Completed [facility] COMMUNICATION ORDER Medical Center Repository 09/25/2017 OZH400(C4) SHOWER Completed [facility] Repository 09/25/2017 RT99(C4) INITIATE OXYGEN Completed [facility] PROTOCOL Medical Center Repository 09/25/2017 ENN1310(C4) COMPREHENSIVE Completed [facility] METABOLIC PANEL W/ Medical Center REFLEX TO MG FOR LOW K Repository 09/25/2017 74082(C4) MAGNESIUM Completed [facility] Repository 09/25/2017 BNW922(C4) HEMOGLOBIN AND Completed [facility] HEMATOCRIT, BLOOD Medical Center Repository 09/24/2017 BVX941(C4) VITAL SIGNS Completed [facility] Repository 09/24/2017 TMO578(C4) TOBACCO CESSATION Completed [facility] EDUCATION [facility] Repository 09/24/2017 RT99(C4) INITIATE OXYGEN Completed [facility] PROTOCOL Medical Center Repository 09/24/2017 RT99(C4) INITIATE OXYGEN Completed [facility] Repository 09/24/2017 COR25(C4) REASON FOR NO Completed [facility] MECHANICAL VTE Medical Center PROPHYLAXIS Repository 09/24/2017 COD2(C4) FULL CODE Completed [facility] Repository 09/24/2017 con68(C4) IP CONSULT TO GI Completed [facility] Repository 09/24/2017 ADT1(C4) PATIENT STATUS (FROM Completed [facility] ED OR OR/PROCEDURAL) [facility] Center Repository 09/24/2017 78913(C4) CBC WITH AUTO Completed [facility] Repository 09/24/2017 67104(C4) COMPREHENSIVE Completed [facility] Repository 09/24/2017 QYU1934(C4) URINE RT REFLEX TO Completed [facility] Repository 09/24/2017 LAB95(C4) LACTIC ACID, PLASMA Completed [facility] Repository 09/23/2017 59164(C4) CT ABDOMEN PELVIS W IV Completed [facility] Repository 09/23/2017 70586(C4) CBC WITH AUTO Completed [facility] Repository 09/23/2017 00167(C4) COMPREHENSIVE Completed [facility] Repository 09/23/2017 05429(C4) LIPASE Completed [facility] Repository 09/23/2017 LAB95(C4) LACTIC ACID, PLASMA Completed [facility] Repository 09/23/2017 LAB46(C4) ETHANOL Completed [facility] Repository 09/23/2017 ARU627(C4) TROPONIN Completed [facility] Repository 09/23/2017 RTB2805(C4) CULTURE BLOOD #1 Completed [facility] Repository 09/23/2017 ZGT9327(C4) CULTURE BLOOD #2 Completed [facility] Repository 09/23/2017 EKG1(C4) EKG 12-LEAD Completed [facility] Repository 09/23/2017 19957(C4) XR CHEST PORTABLE Completed [facility] Repository 09/23/2017 09732(C4) POCT CREATININE Completed [facility] Repository 09/23/2017 LAB95(C4) LACTIC ACID, PLASMA Completed [facility] Repository 09/23/2017 DDY9610(C4) URINE RT REFLEX TO Completed [facility] Repository 09/23/2017 FIP8844(C4) URINE DRUG SCREEN Completed [facility] Repository 09/23/2017 33442(C4) URINE CULTURE Completed [facility] Repository 09/23/2017 UGL3293(C4) MICROSCOPIC URINALYSIS Completed [facility] Repository 08/24/2017 8X9A7YP(ICD10 0A7K8BW Completed [facility] Repository 05/26/2017 12545(C4) URINE HCG-IN OFFICE Completed [facility] [employer] [facility] Repository 05/26/2017 PGL3480(C4) ASSESS CIWA SCALE Completed [facility] Repository RESULTS RESULTS DISCHARGE SUMMARY Observed: 03/13/2018 Status: F Source: [place] 12:00 PM [facility] Medical Records Department [address] [place] [address] Discharge Summary 03/13/18 1155 MR#: [id number] Acct: [id number] Name: VIELKA IBARRA Rep #: [id number] : 1980 37 From: Andry Atwood MD PCP: OUT OF TOWN DOCTOR Status: DIS IN Y [place] [facility] [id number] Discharge Date and Diagnosis Date of Admission: 03/10/18 Date of Discharge: 03/13/18 - Primary Discharge Diagnosis Acute opioid withdrawal, admitted for medical stabilization. - Secondary Discharge Diagnosis Chronic Problems Hepatitis C (Chronic) Depression (Chronic) Nicotine abuse (Chronic) Hx of ovarian cancer (Chronic) Hospital Course and Treatment Operations: None Procedures: None Summary of Care Provided: Patient seen and examined on the day of discharge and appeared to be stable to be discharged home. Her symptoms continued to improve and today, she is feeling much better. Her blood pressure was borderline low but she was asymptomatic. She mentioned that her blood pressure is usually running low. Other vital signs are stable. The patient is a 37 year old F admitted for acute opiate withdrawal for medical stabilization. Her presenting complaints were body aches, malaise, restlessness and abdominal cramps as well as mild diarrhea. 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 In the past, she has been clean for a few years but she relapsed. Her routine blood work was unremarkable. LFT was normal. Serum test was negative. Urine drug screen was positive for opioids and cocaine. Blood alcohol level is 7. She was treated with [facility] protocol with tapering course of Subutex, as needed Catapres, Bentyl, Vistaril, methocarbamol, Mirapex, Zofran and Motrin. With treatment, his symptoms did improve slowly. She completed tapering course of Subutex successively. Patient discharged home in a stable medical condition, continued on her chronic home medications without any changes, continued on Bactrim for face/chin furuncles that was started as outpatient, continued on Xanax, Wellbutrin and Lexapro, recommended follow-up with PCP in 2-4 weeks, recommended to keep in touch with [facility] program. - Physical Exam General: Alert, Oriented x3, Cooperative, No apparent distress HEENT: Atraumatic, PERRLA, EOMI, Normocephalic Oral: Moist Mucosa, No Gingival or Mucosal Lesions/ Ulcerations Neck: Supple, No JVD, Negative Carotid Bruits, Trachea Midline, Thyroid Normal Size and Texture Lungs: Clear to auscultation, Normal air movement, No rhonchi, No wheeze, No rales Cardiovascular: Regular rate, Regular Rhythm, Normal S1, Normal S2, PMI Normal Abdomen: Bowel Sounds Present, Soft, Non Tender, Non-Distended, No Hepato-splenomegaly Extremities: No clubbing, No cyanosis, No edema Skin: No rashes, No breakdown Lymphatic: No Cervical, Supraclavicular, or Inguinal Adenopathy Neurological: Cranial nerves II-XII grossly intact, Neuro grossly intact Psych/Mental Status: Normal Affect, Appropriate Vital Signs Temp Pulse Resp BP Pulse Ox 97.4 F L 64 16 91/56 L 98 03/13/18 08:08 03/13/18 08:08 03/13/18 08:08 03/13/18 08:08 03/13/18 06:49 Oxygen Delivery Method Room Air Weight: 103 lb 1 oz Body Mass Index (BMI) 16.6 Intake and Output for Last 24 Hours Intake Total 1640 / 1640 1000 / 1000 680 / 680 Balance 1640 / 1640 1000 / 1000 680 / 680 Discharge Activity: Return to Normal Activity Weight Bearing Status: Full weight bearing Call your doctor if you observe: Fever of 101 or Higher, Shortness of breath, Dizziness, Fainting spells, Chest pain, Increased palpitations (irregular heartbeat), Uncontrolled pain Home Medications: Medications to take at Discharge Escitalopram Oxalate [Lexapro] 20 mg PO DAILY 11/07/16 buPROPion tablets [Wellbutrin tablets] 75 mg PO BID 11/07/16 Acetaminophen [Tylenol Tablet] 650 mg PO Q6H PRN PRN tablet 11/11/16 ALPRAZolam [Xanax] 0.25 mg PO QHS PRN PRN 02/03/18 Naproxen [Naprosyn] 500 mg PO BID #14 tablet 02/03/18 Smz/Tmp Ds [Bactrim Ds] 1 tablet PO BID #14 tablet 02/03/18 Primary Care Physician: [facility] Doctor,Out of [Primary Care Provider] - Please follow up with your Primary Care Physician in: 2-4 weeks. Disposition: Home Minutes spent on discharge:: 25 Patient Condition:: Stable Medical Necessity - Tobacco Use Smoking Status: Current every day smoker Tobacco Use: Cigarettes Meaningful Use Info Meaningful Use Diagnoses (Choose all that apply): None applicable Code Visit Inpatient E AND M: 93829 Disch Hosp 03/13/18 1200 <Electronically signed by Andry Atwood MD> Date Andry Atwood MD Cosigner Signature (if applicable): Date CC: DR LISA SAENZ; Andry Atwood; OUT OF TOWN DOCTOR; PCP Signed DISCHARGE INSTRUCTION Observed: 03/13/2018 Status: F Source: PIKE 8:44 AM [facility] Medical Records Department [address] [place] [id number] Instructions for Home/Discharge Instructions 03/13/18 0843 MR#: [id number] Acct: [id number] Name: VIELKA IBARRA Rep #: [id number] : 1980 37 From: Andry Atwood MD PCP: OUT OF [facility] DOCTOR Status: ADM IN - Discharge Diagnoses Current Active Problems: Current Active and Chronic Problems Acute opioid withdrawal (Acute) Hepatitis C (Chronic) You will use the following diet at home:: Regular Your food should be the consistency of: Regular Discharge Activity: Return to Normal Activity Weight Bearing Status: Full weight bearing Call your doctor if you observe: Fever of 101 or Higher, Shortness of breath, Dizziness, Fainting spells, Chest pain, Increased palpitations (irregular heartbeat), Uncontrolled pain Allergies/Adverse Reactions: Allergies No Known Allergies Allergy (Verified 02/03/18 15:51) Medications to take at Discharge Escitalopram Oxalate [Lexapro] 20 mg PO DAILY 11/07/16 buPROPion tablets [Wellbutrin tablets] 75 mg PO BID 11/07/16 Acetaminophen [Tylenol Tablet] 650 mg PO Q6H PRN PRN tablet 11/11/16 ALPRAZolam [Xanax] 0.25 mg PO QHS PRN PRN 02/03/18 Naproxen [Naprosyn] 500 mg PO BID #14 tablet 02/03/18 Smz/Tmp Ds [Bactrim Ds] 1 tablet PO BID #14 tablet 02/03/18 Primary Care Physician: [facility] Doctor,Out of [Primary Care Provider] - Please follow up with your Primary Care Physician in: 2-4 weeks. Test Results: Test results from this visit will be discussed in further detail at your follow-up appointment, if applicable. 03/13/18 0844 <Electronically signed by Andry Atwood MD> Date Andry Atwood MD CC: DR LISA SAENZ; OUT OF [facility] DOCTOR URINE DRUG SCREEN Collected: 03/10/2018 Status: F Source: ZAIDA (DEXTERTA) 9:20 PM [facility] [place] TYPE CODE TESTS RESULT OUT OF RANGE REFERENCE UNITS LAB L505.0075 TO BE Normal CONFIRMED Result Comment: CONFIRMATORY TESTING FOR ALL POSITIVE URINE DRUG SCREEN RESULTS WILL ONLY BE SENT OUT UPON PHYSICIAN ORDER. VISTA Urine Drug Screen methods provide only preliminary analytical test results. A more specific alternate chemical method must be used in order to obtain a confirmed analytical result. Gas chromatography/mass spectrometery (GC/MS) is the preferred confirmatory method. Clinical consideration and professional judgement should be applied to any drug of abuse test result, particularly when preliminary positive results are used. URINE TCA TESTING MUST BE ORDERED SEPARATELY. USE TEST MNEMONIC: [facility] LAB L505.5005 VISTA UDS PH 7 Normal LAB L505.5015 <1000 ng/mL AMPHETAMINES Normal NEGATIVE LAB L505.5025 < 200 ng/mL BARBITIURATES Normal NEGATIVE LAB L505.5035 < 200 ng/mL BENZODIAZIPINE Normal NEGATIVE LAB L505.5045 < 300 High ng/mL COCAINE POSITIVE LAB L505.5055 < 500 ng/mL ECSTACY Normal NEGATIVE LAB L505.5065 < 300 ng/mL METHADONE Normal NEGATIVE LAB L505.5075 < 300 High ng/mL OPIATES POSITIVE LAB L505.5085 < 25 ng/mL PCP Normal NEGATIVE LAB L505.5095 < 50 ng/mL THC Normal NEGATIVE Performed By: #### L505.5000 #### [facility] [address], [address] HISTORY AND PHYSICAL Observed: 03/10/2018 Status: F Source: PIKE EXAM 1:00 PM [facility] [place] Medical Records Department [address] [place] [address] History and Physical 03/10/18 1128 MR#: [id number] Acct: [id number] Name: VIELKA IBARRA Rep #: [id number] : 1980 37 From: Andry Atwood MD PCP: OUT OF TOWN DOCTOR Status: ADM IN Y [place] [facility] [id number] Problem List (1) Acute opioid withdrawal Status: Acute (2) Hepatitis C Status: Chronic (3) Depression Status: Chronic (4) Nicotine abuse Status: Chronic (5) Hx of ovarian cancer Status: Chronic History of Present Illness Date of Admission: 03/10/18 Chief Complaint: Acute opioid withdrawal. The patient is a 37 year old F with past medical history as mentioned above presented to the [facility] office requesting admission for acute opiate withdrawal for medical stabilization. Patient has been using IV heroin almost every day for the last year and her last dose was yesterday at 2 PM. She has history of opioid abuse back in 2006 after she had ovarian cancer that required surgery and she was able to remain clean for about 4 years. She relapsed back and started using IV heroin again since last year. She denied use of any other recreational drugs. Her presenting symptoms today are body aches, described as dull aching pain, all over her body, 2-3 out of 10 in severity, not radiating, associated with malaise, restlessness and abdominal cramps. She mentioned that she has been having abdominal cramps for the last couple of days, mild, associated with intermittent diarrhea and without aggravating or relieving factors. She had a history of ovarian cancer status post ostectomy and bilateral salpingo-oophorectomy, status post chemotherapy back in 2006 and she has been in remission since then. She has a history of chronic hepatitis C but she never been treated for it. She had a history of anxiety and depression and she has been on Xanax, Wellbutrin and Lexapro for a long time and she has been following up with psychiatry as outpatient. One week ago, she was started on Bactrim for furuncles on the forehead and chin and she was recommended to keep taking Bactrim for 2 weeks, she took 1 week already. At this time, her vital signs are stable. Routine blood work was unremarkable. LFT was normal. Serum test was negative. She is being admitted for acute opiate withdrawal for medical stabilization. Past Medical History Past Medical History (Chronic Problems): Chronic Problems Hepatitis C (Chronic) Depression (Chronic) Nicotine abuse (Chronic) Hx of ovarian cancer (Chronic) Allergies No Known Allergies Allergy (Verified 02/03/18 15:51) Home Medications: Ambulatory Orders Medication Instructions Recorded Surgical History: hysterectomy, - - section, bilateral salpingo-oophorectomy Psychiatric History: Anxiety, Depression SLOPE [employer]NER History: No pertinent SLOPE [employer]NER history Smoking Status: Current every day smoker Alcohol: None Drugs: Heroin - *Family History Maternal History Items: No pertinent history Paternal History Items: No pertinent history Sibling History Items: No pertinent history Review of Systems Constitutional: Reports: Malaise. Denies: Anorexia, Chills, Fever, Weakness, Fatigue Eyes: Denies: Blurred vision, Double vision, Drainage, Redness HEENT: Denies: Difficulty Hearing, Ear Pain, Eye Pain, Nasal Congestion, Sore Throat Cardiovascular: Denies: Chest Pain, Chest Pressure, Edema, Light Headedness, Orthopnea, Paroxysmal Noc. Dyspnea, Syncope Respiratory: Denies: Cough, Pleuritic Pain, Shortness of Breath, Sputum production, Wheezing Gastrointestinal: Reports: Diarrhea, Nausea, - - Abdominal cramps.. Denies: Abdominal Pain, Constipation, Hematochezia, Vomiting Genitourinary: Denies: Dysuria, Frequency, Hematuria Musculoskeletal: Reports: Back Pain, Muscle pain. Denies: Arm Pain, Foot Pain Skin: Denies: Dryness, Rash Neurological: Reports: Headaches. Denies: Balance problems, Double vision, Change in Speech, Slurred speech, Confusion, Focal weakness, Numbness, Tingling Psychiatric: Reports: Anxiety, Depression. Denies: Suicidal Ideations Endocrine: Denies: Change in Body Habitus, Polydipsia VTE Information - Inpt Only VTE Present on Admission: No VTE Mechan Device Prophylaxis: None VTE Pharm Prophylaxis ordered?: No Patient Problems: Active and Suspected Problems Acute opioid withdrawal (Acute) - Physical Exam General: Alert, Oriented x3, Cooperative, No apparent distress HEENT: Atraumatic, PERRLA, EOMI, Normocephalic Oral: Moist Mucosa, No Gingival or Mucosal Lesions/ Ulcerations Neck: Supple, No JVD, Negative Carotid Bruits, Trachea Midline, Thyroid Normal Size and Texture Lungs: Clear to auscultation, Normal air movement, No rhonchi, No wheeze, No rales Cardiovascular: Regular rate, Regular Rhythm, Normal S1, Normal S2, No murmurs Abdomen: Bowel Sounds Present, Soft, Non Tender, Non-Distended, No Hepato-splenomegaly Extremities: No clubbing, No cyanosis, No edema Skin: No rashes, No breakdown, - - Healing furuncles on the forehead and chin. Lymphatic: No Cervical, Supraclavicular, or Inguinal Adenopathy Neurological: Cranial nerves II-XII grossly intact, Motor Exam 5/5 strength throughout Psych/Mental Status: Normal Affect, Appropriate, Alert and oriented to time, place, person, mood and affect Vital Signs Temp Pulse Resp BP 97.7 F L 75 16 133/97 H 03/10/18 11:09 03/10/18 11:09 03/10/18 11:03/10/18 11:09 Weight: 103 lb 1 oz Body Mass Index (BMI) 16.6 Assessment/Plan All Active Problems Acute opioid withdrawal (Acute) This is a 37 years old female patient presented to the [facility] office requesting admission for acute opiate withdrawal for medical stabilization. 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 She had a history of drug use in the past in 2006 after she had ovarian cancer and surgeries but she was clean for a few years and relapsed. At this time, her vital signs are stable. Plan: Admit to [facility], regular diet, urine drug screen, blood alcohol level, serum test, initiate New Vision protocol with tapering course of Subutex, as needed Catapres, Bentyl, Vistaril, methocarbamol, Mirapex, Zofran and Motrin. #2 forehead/chin furuncles: She was started on Bactrim 1 week ago and requested to complete 2 weeks of treatment. Furuncles the forehead and chin are healing. No drainage. Plan to continue Bactrim. #3 history of ovarian cancer: Status post hysterectomy and bilateral salpingo-nephrectomy, status post chemotherapy back in 2006, in remission, stable. #4 anxiety/depression: Denied suicidal intentions or ideations, continue Xanax, Wellbutrin and Lexapro. #5 chronic hepatitis C: Never been treated for it. LFT was unremarkable. Recommend referral to infectious disease as outpatient. #6 tobacco abuse: NicoDerm patch 14 mg daily. #7 DVT prophylaxis: Low-risk patient, no prophylaxis indicated. This note was generated with [employer] dictation software. It may contain incorrect words, spelling, and punctuation that were not noted in checking the note before signing. Code Visit Inpatient E AND M: [id number] Init Hosp L2 03/10/18 1300 <Electronically signed by Andry Atwood MD> Date Andry Atwood MD Cosigner Signature: Date (if applicable) CC: DR LISA SAENZ; Andry Atwood; OUT OF TOWN DOCTOR Signed CBC W/DIFF, AUTOMATED Collected: 03/10/2018 Status: F Source: [facility] 11:15 AM [facility] [place] TYPE CODE TESTS RESULT OUT OF RANGE REFERENCE UNITS LAB L100.1000 4.4-11.0 K/mm3 Normal WBC 8.4 LAB L100.1200 4.2-5.4 M/mm3 Normal RBC 4.20 LAB L100.1300 12.0-15.0 g/dl Normal HGB 12.5 LAB L100.1400 37-47 % Normal HCT 37.4 LAB L100.1500 81-99 fL Normal MCV 89.0 LAB L100.1600 27.0-32.0 pg Normal MCH 29.8 LAB L100.1700 32-36 g/gl Normal MCHC 33.4 LAB L100.1810 11.6-14.6 % Normal RDW CV 13.6 LAB L100.1820 35.1-43.9 fl Normal RDW SD 43.7 LAB L100.1900 150-450 K/mm3 Normal PLT 290 LAB L100.2000 6.2-12.0 fl Normal MPV 9.5 LAB L100.2100 47-70 % Normal NEUT% 66.8 LAB L100.2200 19-41 % Normal LY% 23.3 LAB L100.2300 0-10 % Normal MONO% 8.7 LAB L100.2400 0-5 % Normal EO% 0.8 LAB L100.2500 0-1 % Normal BASO% 0.2 LAB L100.2550 0.0-0.9 % Normal IM GRAN % 0.200 Result Comment: IG% - Immature Granulocytes (promyelocytes, myelocytes and metamyelocytes) > 1% indicates that a LEFT SHIFT is Present. LAB L100.2620 2.0-7.7 X10 3/uL Normal Absolute Neut 5.6 LAB L100.2720 0.83-4.51 X10 3/ul Normal Absolute Lymph 1.96 Performed By: #### L100.0100 #### [facility] [address] [facility]. [place], [place], [id number] COMPREHENSIVE METABOLIC Collected: 03/10/2018 Status: F Source: [facility] 11:15 AM [facility] [place] TYPE CODE TESTS RESULT OUT OF RANGE REFERENCE UNITS LAB L501.0100 74-106 mg/dL Normal GLU 102 Result Comment: Fasting Glucose result from 100 to 125 mg/dL suggests IMPAIRED HOMEOSTASIS per A.D.A. criteria. Please note revised GLUCOSE reference range effective 2017. LAB L501.1000 7-18 mg/dL Low BUN 6 LAB L501.1100 0.55-1.02 mg/dL Normal CREAT,SERUM 0.84 Result Comment: The validity of the calculated GFR AND GFRAA in patients over 70 years has not been determined. Clinical correlation is essential. LAB L501.1110 >60 mL/min Normal EST GFR 81 Result Comment: Non- GFR Calc LAB L501.1115 >60 mL/min Normal EST GFR - AA 98 Result Comment: GFR Calc LAB L501.1255 ml/min Normal Estimated CRCL 67.01 LAB L501.1300 10-20 RATIO Low BUN/CRE 7.2 LAB L501.1500 6.4-8. g/dL Normal 2 T PROT 8.0 LAB L501.1800 3.2-5. g/dL Normal 0 ALB 3.2 LAB L501.1950 2.2-4. g/dL High 2 GLOB 4.8 LAB L501.2000 0.9-2. RATIO Low 4 A/G 0.7 LAB L501.2200 8.5-10 mg/dL Normal .1 CA 8.9 LAB L501.4100 15-37 U/L Normal AST 15 LAB L501.4305 45-117 U/L Normal ALK P 67 LAB L501.4405 13-56 U/L Normal ALT 30 LAB L501.4600 0.20-1 mg/dL Normal .00 T BILI 0.30 LAB L501.5300 136-14 mmol/L Normal 5 NA 139 LAB L501.5600 3.5-5. mmol/L Normal 1 K 4.0 LAB L501.5900 98-107 mmol/L Normal CL 104 LAB L501.6100 21.0-3 mmol/L Normal 2.0 CO2 30.0 LAB L501.6200 5-15 Normal GAP 5 Performed By: #### L500.4050 #### [facility] [address] [place], [place], [address] ,SERUM,HCG QUALI. Collected: Status: F Source: [place] 03/10/2018 11:15 AM [facility] [place] Order Comment: Comments: Notify of positive results TYPE CODE TESTS RESULT OUT OF REFERENCE UNITS RANGE LAB L700.6700 =>Qualitative mIU/mL Normal HCG Qual < 1 triggr LAB L700.7000 0-9 Nonpreg Negative Normal HCGSQUAL NEGATIVE Performed By: #### L700.6800 #### [facility] [address] [place], [address] ALCOHOL, BLOOD Collected: 03/10/2018 Status: F Source: [facility] (MEDICAL)-SERUM 11:15 AM [facility] [place] TYPE CODE TESTS RESULT OUT OF RANGE REFERENCE UNITS LAB L501.9100 mg/dL Normal SERUM 7.0 ETOH Result Comment: The serum:whole blood ethanol ratio is approximately 1.14 and varies slightly with hematocrit. Medical Alcohol reference interval and critical value in non-tolerant individuals; 50 - 100 Impairment 100 Intoxication 100 - 250 Severe Poisoning 250 - 400 Deep/possible fatal coma Performed By: #### L501.9100 #### [facility] [address] [place], [address] COMPREHENSIVE METABOLIC Collected: 02/15/2018 Status: F Source: [facility] PANEL 7:00 PM [facility] REPOSITORY TYPE CODE TESTS RESULT OUT OF REFERENCE UNITS RANGE LAB NA 132-144 mEq/L Sodium 140 LAB K 3.5-5.1 mEq/L Potassium 4.8 LAB CL 98-107 mEq/L Chloride 102 LAB CO2 22-29 mEq/L CO2 25 LAB AGAP 7-13 mEq/L Anion Gap 13 LAB GLU 74-109 mg/dL Glucose High alert 134 LAB BUN 6-20 mg/dL BUN High alert 22 LAB CREA 0.50-0.90 mg/dL Creatinine 0.83 LAB GFR >60 GFR >60.0 Result Comment: >60 mL/min/1.73m2 EGFR, calc. for ages 18 and older using the MDRD formula (not corrected for weight), is valid for stable renal function. LAB GFRAA >60 eGFR >60.0 Result Comment: >60 mL/min/1.73m2 EGFR, calc. for ages 18 and older using the MDRD formula (not corrected for weight), is valid for stable renal function. LAB CA 8.6-10.2 mg/dL Calcium 9.7 LAB TP 6.4-8.1 g/dL Total Protein 7.9 LAB ALB 3.9-4.9 g/dL Albumin 3.9 LAB BILIT 0.0-1.2 mg/dL Bilirubin Total 0.3 LAB ALP 40-130 U/L Alkaline Phosphatase 58 LAB ALT 0-33 U/L ALT 18 LAB AST 0-35 U/L AST 20 LAB GLOB 2.3-3.5 g/dL Globulin High alert 4.0 REJECTION NOTIFICATION Collected: 02/15/2018 Status: F [facility] REPOSITORY TYPE CODE TESTS RESULT OUT OF REFERENCE UNITS RANGE LAB TESTI Rejected Test cmp CBC WITH PLATELET AND Collected: 02/15/2018 Status: F Source: [facility] 5:30 PM [facility] REPOSITORY TYPE CODE TESTS RESULT OUT OF REFERENCE UNITS RANGE LAB WBCIR 4.8-10.8 K/uL WBC 9.7 LAB RBC 4.20-5.40 M/uL RBC 5.22 LAB HGB 12.0-16.0 g/dL Hemoglobin 15.7 LAB HCT 37.0-47.0 % Hematocrit 45.5 LAB MCV 82.0-100.0 fL MCV 87.3 LAB MCH 27.0-31.3 pg MCH 30.1 LAB MCHC 33.0-37.0 % MCHC 34.5 LAB RDW 11.5-14.5 % RDW High alert 14.6 LAB PLT 130-400 K/uL Platelet Count 376 LAB SEGR % Neutrophils 85.1 LAB LYMPR % Lymphocytes 12.3 LAB MONOR % Monocytes 2.0 LAB EOSR % Eosinophils 0.1 LAB BASOR % Basophils 0.5 LAB ASEGR 1.4-6.5 K/uL Absolute High alert Neutrophils 8.2 LAB ALYMR 1.0-4.8 K/uL Absolute Lymphocytes 1.2 LAB AMONR 0.2-0.8 K/uL Absolute Monocytes 0.2 LAB AEOSR 0.0-0.7 K/uL Absolute Eosinophils 0.0 LAB ABASR 0.0-0.2 K/uL Absolute Basophils 0.1 UR DRUGS OF ABUSE Collected: 02/15/2018 Status: F Source: [facility] PAN[facility] 5:30 PM [facility] REPOSITORY TYPE CODE TESTS RESULT OUT OF REFERENCE UNITS RANGE LAB UAMP1 Negative < UR Amphetamines Neg Screen LAB UBAR1 Negative < UR Barbiturates Neg Screen LAB UBEN1 Negative < UR Benzo Screen Neg LAB UCAN1 Negative < UR Cannabinoids Neg Screen LAB UCOC1 Negative < UR Cocaine Screen Neg LAB UOPI1 Negative < UR Opiates Screen Neg LAB UPCP1 Negative < UR PCP Screen Neg LAB DRUGC Drug Screen Comment see below Result Comment: This method is a screening test to detect only these drug classes as part of a medical workup. Confirmatory testing by another method should be ordered if clinically indicated. EMERGENCY DEPARTMENT Observed: 02/03/2018 Status: F Source: [facility] SUMMARY 7:24 PM [facility] [place] [facility] Medical Records Department [address] [place] [address] Emergency Department Summary 02/03/181916 MR#: [id number] Acct: [id number] Name: VIELKA IBARRA Rep #: [id number] : 1980 37 From: Darian Ramirez MD PCP: OUT OF TOWN DOCTOR Status: REG ER - ER Visit Summary Date of Service: 02/03/18 Chief Complaint: Swelling pain right side of forehead and wound dorsum right hand History of Present Illness: The patient is a 37 F who has history of IV drug use, heroin, who presents with abscess to the right side of her forehead and picking at her skin. She also has 2 wounds dorsum of her hand. One appears to be secondary to track/injection site the other is not. She denies chills but complains of subjective fever. She denies weight gain or weight loss. She denies night sweats. He does have history of hepatitis C. She is HIV negative. There is a remote history of ovarian cancer status post hysterectomy. Physical Examination: Vital signs are remarkable for heart rate of 108. She is not febrile, tachypneic or hypoxic. Blood pressure 148/84. HEENT exam is remarkable for multiple pick bazzi and a abscess right forehead. There is soft tissue swelling with erythema. There is no abnormality the lid lash or lacrimal apparatus. Pupils equal round reactive. Extraocular muscle intact. Sclerae anicteric. Conjunctive is not injected. There is no evidence of a preseptal cellulitis. There is no pain with movement of the eye and there is full active motion. TMs normal. Nares patent. Dentition is normal. Trachea midline. There is no stridor. Heart is regular without murmur, gallop or rub. Lungs are clear to auscultation. Patient has 2 small abscesses dorsal surface of the right hand. Track bazzi are noted. There is no evidence of phlebitis. There is no epitrochlear or axillary lymphadenopathy. Patient is alert and oriented 3. Motor is 5 over 5. Sensory is intact. DTRs are symmetric with no clonus or Babinski sign. Cranial 2 through 12 are intact. Cerebellar testing is normal. Test Results: White count is 11.2 thousand 71 segs no bands. Electro panels unremarkable. Emergency Department Course and Treatment: Because she reports subjective fever with history of hole in her heart and IV drug use will obtain CBC and BMP. White count is slightly elevated and she does not meet criteria for sepsis. Treatment Plan: A super overalls last trochlear nerve block was placed on the right. The forehead abscess was incised with a 15 blade. Blunt dissection was undertaken with significant amount of purulent material. Cavity was irrigated and a wick was placed. The 2 small abscesses dorsum right hand were anesthetized. Advised and minimal superficial purulent material noted. Disposition: Discharged home with anti-inflammatory, prescription for cephalexin and Bactrim Impression: 1. Forehead laceration, complex 2. 2 simple small subcutaneous abscesses dorsum right hand 3. Sinus tachycardia 4. IV drug use 5. History of hepatitis C This note was generated with [employer] dictation software. It may contain incorrect words, spelling, and punctuation that were not noted in review of the chart prior to signing ED Disposition - Plan for ED Patient: Disposition: Home or Assisted Living Chief Complaint: Abscess Instructions: ED Abscess IandD, ED Infec Skin Cellulitis, ED Skin Infec MRSA Suspect Conf Prescriptions: Naproxen [Naprosyn] 500 mg PO BID #14 tablet Smz/Tmp Ds [Bactrim Ds] 1 tablet PO BID #14 tablet Cephalexin 500 mg PO 4X/DAY #20 capsule Referrals: [facility] Doctor,Out of [Primary Care Provider] - Additional Instructions: Since you do not have a physician in the area return in 2 days for wound check and removal of wick. Your prescription was electronically transmitted to right [facility] your designated pharmacy of choice. What to do if you have Problems For any increased pain, shortness of breath, bleeding, nausea or vomiting, chest pain, or any unexpected problems, contact your Primary Care Provider. Call [facility] ([phone]) or report to the closest Emergency Room. Call 911 if necessary. 02/03/181923 <Electronically signed by Darian Ramirez MD> Date Darian Ramirez MD Cosigner Signature (If Indicated): Date CC: DR LISA SAENZ; OUT OF TOWN DOCTOR CBC W/DIFF, AUTOMATED Collected: 02/03/2018 Status: F Source: [place] 5:05 PM [facility] [place] TYPE CODE TESTS RESULT OUT OF RANGE REFERENCE UNITS LAB L100.1000 4.4-11.0 K/mm3 High WBC 11.2 LAB L100.1200 4.2-5.4 M/mm3 Low RBC 3.69 LAB L100.1300 12.0-15.0 g/dl Low HGB 10.8 LAB L100.1400 37-47 % Low HCT 32.9 LAB L100.1500 81-99 fL Normal MCV 89.2 LAB L100.1600 27.0-32.0 pg Normal MCH 29.3 LAB L100.1700 32-36 g/gl Normal MCHC 32.8 LAB L100.1810 11.6-14.6 % Normal RDW CV 13.5 LAB L100.1820 35.1-43.9 fl High RDW SD 44.1 LAB L100.1900 150-450 K/mm3 Normal PLT 228 LAB L100.2000 6.2-12.0 fl Normal MPV 8.8 LAB L100.2100 47-70 % High NEUT% 70.7 LAB L100.2200 19-41 % Low LY% 16.5 LAB L100.2300 0-10 % High MONO% 11.9 LAB L100.2400 0-5 % Normal EO% 0.6 LAB L100.2500 0-1 % Normal BASO% 0.2 LAB L100.2550 0.0-0.9 % Normal IM GRAN % 0.100 Result Comment: IG% - Immature Granulocytes (promyelocytes, myelocytes and metamyelocytes) > 1% indicates that a LEFT SHIFT is Present. LAB L100.2620 2.0-7.7 X10 3/uL High Absolute Neut 7.9 LAB L100.2720 0.83-4.51 X10 3/ul Normal Absolute Lymph 1.84 Performed By: #### L100.0100 #### [facility] [address] [place], [place], [address] BASIC METABOLIC Collected: 02/03/2018 Status: F Source: [facility] 5:05 PM [facility] [place] TYPE CODE TESTS RESULT OUT OF RANGE REFERENCE UNITS LAB L501.0100 74-106 mg/dL Normal GLU 103 Result Comment: Fasting Glucose result from 100 to 125 mg/dL suggests IMPAIRED HOMEOSTASIS per A.D.A. criteria. Please note revised GLUCOSE reference range effective 2017. LAB L501.1000 7-18 mg/dL Low BUN 5 LAB L501.1100 0.55-1.02 mg/dL Normal CREAT,SERUM 0.76 Result Comment: The validity of the calculated GFR AND GFRAA in patients over 70 years has not been determined. Clinical correlation is essential. LAB L501.1110 >60 mL/min Normal EST GFR 91 Result Comment: Non- GFR Calc LAB L501.1115 >60 mL/min Normal EST GFR - AA 110 Result Comment: GFR Calc LAB L501.1255 ml/min Normal Estimated CRCL 82.55 LAB L501.1300 10-20 RATIO Low BUN/CRE 6.6 LAB L501.2200 8.5-10 mg/dL Low .1 CA 8.3 LAB L501.5300 136-14 mmol/L Normal 5 NA 137 LAB L501.5600 3.5-5. mmol/L Normal 1 K 3.7 LAB L501.5900 98-107 mmol/L Normal CL 100 LAB L501.6100 21.0-3 mmol/L Normal 2.0 CO2 29.0 LAB L501.6200 5-15 Normal GAP 8 Performed By: #### L500.2500 #### [facility] [address] [place], [place], [address] LACTIC ACID Collected: 02/03/2018 Status: F Source: [place] 5:05 PM [facility] [place] [facility] Order Comment: Yes/No query for Sepsis Lactate Rule Y TYPE CODE TESTS RESULT OUT OF RANGE REFERENCE UNITS LAB L503.6005 0.4-2.0 mmol/L Normal LACTIC ACID 1.0 Performed By: #### L503.6005 #### [facility] [address] [place], [place], [id number] CBC WITH PLATELET AND Collected: 01/03/2018 Status: F Source: [facility] 5:30 [facility] REPOSITORY TYPE CODE TESTS RESULT OUT OF REFERENCE UNITS RANGE LAB WBCIR 4.8-10.8 K/uL WBC High alert 11.0 LAB RBC 4.20-5.40 M/uL RBC High alert 5.49 LAB HGB 12.0-16.0 g/dL Hemoglobin High alert 16.8 LAB HCT 37.0-47.0 % Hematocrit High alert 48.1 LAB MCV 82.0-100.0 fL MCV 87.5 LAB MCH 27.0-31.3 pg MCH 30.6 LAB MCHC 33.0-37.0 % MCHC 35.0 LAB RDW 11.5-14.5 % RDW 13.4 LAB PLT 130-400 K/uL Platelet Count 234 LAB SEGR % Neutrophils 54.6 LAB LYMPR % Lymphocytes 34.4 LAB MONOR % Monocytes 9.9 LAB EOSR % Eosinophils 0.4 LAB BASOR % Basophils 0.7 LAB ASEGR 1.4-6.5 K/uL Absolute Neutrophils 6.0 LAB ALYMR 1.0-4.8 K/uL Absolute Lymphocytes 3.8 LAB AMONR 0.2-0.8 K/uL Absolute High alert Monocytes 1.1 LAB AEOSR 0.0-0.7 K/uL Absolute Eosinophils 0.0 LAB ABASR 0.0-0.2 K/uL Absolute Basophils 0.1 LACTIC ACID Collected: 01/03/2018 Status: F Source: [facility] 5:30 PM [facility] REPOSITORY TYPE CODE TESTS RESULT OUT OF REFERENCE UNITS RANGE LAB LACID 0.5-2.2 mmol/L Lactic Acid 1.8 PROTHROMBIN TIME Collected: 01/03/2018 Status: F Source: [facility] 5:30 PM [facility] REPOSITORY TYPE CODE TESTS RESULT OUT OF REFERENCE UNITS RANGE LAB PTI 9.6-12.3 sec Prothrombin Time 10.4 LAB INR INR 1.0 Result Comment: Recommended INR therapeutic ranges for oral anticoagulant therapy Prophylaxis/treatment of: INR Venous Thrombosis, Pulmonary Embolism 2.0-3 Prevention of Systemic Embolism from: Atrial Fibrillation 2.0-3.0 Myocardial Infarction 2.0-3.0 Mechanical Prosthetics Heart Valves 2.5-3.5 Recurrent Systemic Embolism 2.5-3.5 Guidelines for patients with coagulopathy, e.g. liver disease: Use the Protime resulted in seconds. Mild 12.9-17.0 sec Moderate 17.1-22.6 sec Severe G.T. 22.6 sec PARTIAL THROMBOPLASTIN Collected: 01/03/2018 Status: F Source: [facility] 5:30 PM [facility] REPOSITORY TYPE CODE TESTS RESULT OUT OF REFERENCE UNITS RANGE LAB PTT 21.6-35.4 sec Partial Thromboplastin Time 27.3 Result Comment: Heparin Therapeutic Range: 38.8 - 54.6 seconds. COMPREHENSIVE METABOLIC Collected: 01/03/2018 Status: F Source: [facility] 5:30 PM [facility] REPOSITORY TYPE CODE TESTS RESULT OUT OF REFERENCE UNITS RANGE LAB NA 132-144 mEq/L Sodium 135 LAB K 3.5-5.1 mEq/L Potassium 4.2 LAB CL 98-107 mEq/L Low Chloride 89 LAB CO2 22-29 mEq/L CO2 28 LAB AGAP 7-13 mEq/L Anion High alert Gap 18 LAB GLU 74-109 mg/dL Glucose 92 LAB BUN 6-20 mg/dL BUN High alert 21 LAB CREA 0.50-0.90 mg/dL High alert Creatinine 0.91 LAB GFR >60 GFR >60.0 Result Comment: >60 mL/min/1.73m2 EGFR, calc. for ages 18 and older using the MDRD formula (not corrected for weight), is valid for stable renal function. LAB GFRAA >60 eGFR >60.0 Result Comment: >60 mL/min/1.73m2 EGFR, calc. for ages 18 and older using the MDRD formula (not corrected for weight), is valid for stable renal function. LAB CA 8.6-10.2 mg/dL Calcium 10.1 LAB TP 6.4-8.1 g/dL Total High alert Protein 8.8 LAB ALB 3.9-4.9 g/dL Albumin 4.9 LAB BILIT 0.0-1.2 mg/dL Bilirubin Total 0.8 LAB ALP 40-130 U/L Alkaline Phosphatase 76 LAB ALT 0-33 U/L ALT High alert 49 LAB AST 0-35 U/L AST 32 Result Comment: Specimen hemolysis has exceeded the interference as defined by Cosmo. Value may be falsely increased. Suggest recollection if clinically indicated. LAB GLOB 2.3-3.5 g/dL High alert Globulin 3.9 CREATINE KINASE Collected: 01/03/2018 Status: F Source: [facility] 5:30 PM [facility] REPOSITORY TYPE CODE TESTS RESULT OUT OF REFERENCE UNITS RANGE LAB CPK 0-170 U/L Creatine 74 Kinase MAGNESIUM Collected: 01/03/2018 Status: F Source: [facility] [facility] REPOSITORY TYPE CODE TESTS RESULT OUT OF REFERENCE UNITS RANGE LAB MG 1.7-2.3 mg/dL Magnesium 2.1 LIPASE Collected: 01/03/2018 Status: F Source: [facility] 5:30 PM [facility] REPOSITORY TYPE CODE TESTS RESULT OUT OF REFERENCE UNITS RANGE LAB LIPAS 13-60 U/L Lipase 35 URINALYSIS, REFLEX TO Collected: 01/03/2018 Status: F Source: [facility] 5:30 [facility] REPOSITORY TYPE CODE TESTS RESULT OUT OF REFERENCE UNITS RANGE LAB UCLAR Clear Urine Clarity Clear LAB UCOLR [place] Urine Color Yellow LAB UGLU Negative mg/dL Urine Glucose Negative LAB UBIL Negative Urine Bilirubin Negative LAB UKET Negative mg/dL Urine Ketones Negative LAB USPG 1.005-1.03 Urine Specific [place] 1.023 LAB UBLD Negative Urine Blood Negative LAB UPH 5.0-9.0 Urine pH 5.5 LAB UPRO Negative mg/dL Urine Protein Negative LAB UURO < 2.0 E.U./dL Urine Urobilinogen 0.2 LAB UNIT Negative Urine Nitrites Negative LAB ULEU Negative Urine Leukocyte Negative Esterase LAB URFCX Urine Reflexed to Not Indicated Culture UR DRUGS OF ABUSE Collected: 01/03/2018 Status: F Source: [facility] 5:30 PM [facility] REPOSITORY TYPE CODE TESTS RESULT OUT OF RANGE REFERENCE UNITS LAB UAMP1 Negative < UR Amphetamines Neg Screen LAB UBAR1 Negative < UR Barbiturates Neg Screen LAB UBEN1 Negative < UR Benzo Screen Neg LAB UCAN1 Negative < UR Abnormal Cannabinoids POSITIVE Screen LAB UCOC1 Negative < UR Cocaine Screen Neg LAB UOPI1 Negative < UR Opiates Screen Neg LAB UPCP1 Negative < UR PCP Screen Neg LAB DRUGC Drug Screen Comment see below Result Comment: This method is a screening test to detect only these drug classes as part of a medical workup. Confirmatory testing by another method should be ordered if clinically indicated. UR HCG QUALITATIVE Collected: 10/15/2017 Status: F Source: [facility] 3:46 PM [facility] REPOSITORY Order Comment: CALL doctor [id number] tel. , fax results to attention MAT [id number] TYPE CODE TESTS RESULT OUT OF REFERENCE UNITS RANGE LAB [facility] Detects HC Urine HCG Qualitative Negative CBC WITH PLATELET AND Collected: 10/15/2017 Status: F Source: [facility] 3:46 PM [facility] REPOSITORY Order Comment: CALL doctor [id number] tel. , fax results to attention MAT [id number] TYPE CODE TESTS RESULT OUT OF REFERENCE UNITS RANGE LAB WBCIR 4.8-10.8 K/uL WBC 9.6 LAB RBC 4.20-5.40 M/uL RBC 4.68 LAB HGB 12.0-16.0 g/dL Hemoglobin 14.4 LAB HCT 37.0-47.0 % Hematocrit 42.9 LAB MCV 82.0-100.0 fL MCV 91.5 LAB MCH 27.0-31.3 pg MCH 30.8 LAB MCHC 33.0-37.0 % MCHC 33.7 LAB RDW 11.5-14.5 % RDW High alert 14.7 LAB PLT 130-400 K/uL Platelet Count 281 LAB SEGR % Neutrophils 59.1 LAB LYMPR % Lymphocytes 33.7 LAB MONOR % Monocytes 5.6 LAB EOSR % Eosinophils 0.8 LAB BASOR % Basophils 0.8 LAB ASEGR 1.4-6.5 K/uL Absolute Neutrophils 5.6 LAB ALYMR 1.0-4.8 K/uL Absolute Lymphocytes 3.2 LAB AMONR 0.2-0.8 K/uL Absolute Monocytes 0.5 LAB AEOSR 0.0-0.7 K/uL Absolute Eosinophils 0.1 LAB ABASR 0.0-0.2 K/uL Absolute Basophils 0.1 LIVER PANEL Collected: 10/15/2017 Status: F Source: [facility] 3:46 PM [facility] REPOSITORY Order Comment: CALL doctor [id number] tel. , fax results to attention MAT [id number] TYPE CODE TESTS RESULT OUT OF REFERENCE UNITS RANGE LAB TP 6.4-8.1 g/dL Total Protein 8.0 LAB ALB 3.9-4.9 g/dL Albumin 4.4 LAB ALP 40-130 U/L Alkaline Phosphatase 63 LAB ALT 0-33 U/L ALT 28 LAB AST 0-35 U/L AST 19 LAB BILIT 0.0-1.2 mg/dL Bilirubin Total <0.2 LAB BILID 0.0-0.3 mg/dL Bilirubin Direct <0.2 LAB BILII 0.0-0.6 mg/dL Bilirubin Indirect see below Result Comment: Indirect Bilirubin cannot be calculated since Total Bilirubin and/or Direct Bilirubin is below measurable range. HEPATITIS B SURFACE AB Collected: 10/15/2017 Status: F Source: [facility] 3:46 PM [facility] REPOSITORY Order Comment: CALL doctor [id number] tel. , fax results to attention MAT [id number] TYPE CODE TESTS RESULT OUT OF REFERENCE UNITS RANGE LAB HBSAB mIU/mL Hepatitis B REACTIVE Surface Ab Interp Result Comment: <8.5 = Non-reactive >=8.5 and <11.5 = Equivocal >=11.5 = REACTIVE (Immune) HEPATITIS C ANTIBODY Collected: 10/15/2017 Status: F Source: [facility] 3:46 PM [facility] REPOSITORY Order Comment: CALL doctor [id number] tel. , fax results to attention MAT [id number] TYPE CODE TESTS RESULT OUT OF RANGE REFERENCE UNITS LAB HCAB Abnormal Hepatitis C REACTIVE Antibody Interp HEPATITIS B SURFACE AG Collected: 10/15/2017 Status: F Source: [facility] 3:46 PM [facility] REPOSITORY Order Comment: CALL doctor [id number] tel. , fax results to attention MAT [id number] TYPE CODE TESTS RESULT OUT OF REFERENCE UNITS RANGE LAB HBSAG Hepatitis B Surface Ag Non-reactive Interp RPR Collected: 10/15/2017 Status: F Source: [facility] 3:46 PM [facility] REPOSITORY Order Comment: CALL doctor [id number] tel. , fax results to attention MAT [id number] TYPE CODE TESTS RESULT OUT OF RANGE REFERENCE UNITS LAB RPR Non-reacti RPR Non-reactive HEPATITIS B CORE ABS, Collected: 10/15/2017 Status: F Source: [facility] 3:46 PM [facility] REPOSITORY Order Comment: CALL doctor [id number] tel. , fax results to attention MAT [id number] TYPE CODE TESTS RESULT OUT OF REFERENCE UNITS RANGE LAB 2009A Negative Hepatitis B Negative Core Abs, Total Result Comment: INTERPRETIVE INFORMATION: Hepatitis B Core Ab (Total) This assay should not be used for blood donor screening, associated re-entry protocols, or for screening Human Cells, Tissues and Cellular and Tissue-Based Products (HCT/P). Performed by [facility], [address] [place] [address] [email or web address] [facility] [employer], Misael Mitchell MD - Lab. Director HIV-1,-2 W/REFLEX TO Collected: 10/15/2017 Status: F Source: [facility] HIV-1 [place] 3:46 PM [facility] REPOSITORY Order Comment: CALL doctor [id number] tel. , fax results to attention MAT [id number] TYPE CODE TESTS RESULT OUT OF REFERENCE UNITS RANGE LAB 0537H Negative HIV-1 and Negative HIV-2 Abs Result Comment: Based on the non-reactive anti-HIV (LYLY) screen, the HIV Western blot is not indicated and therefore not performed. INTERPRETIVE INFORMATION: HIV-1,-2 w/Reflex to HIV-1 Western Blot This assay should not be used for blood donor screening, associated re-entry protocols, or for screening Human Cells, Tissues and Cellular and Tissue-Based Products (HCT/P). Performed by [facility], [address] [place] [address] [email or web address], Misael Mitchell MD - Lab. Director CBC WITH PLATELET AND Collected: 09/26/2017 Status: F Source: [facility] DIFFERENTIAL 5:06 AM [facility] REPOSITORY TYPE CODE TESTS RESULT OUT OF REFERENCE UNITS RANGE LAB WBCIR 4.8-10.8 K/uL WBC 7.1 LAB RBC 4.20-5.40 M/uL RBC Low 3.53 LAB HGB 12.0-16.0 g/dL Hemoglobin Low 11.2 LAB HCT 37.0-47.0 % Hematocrit Low 32.1 LAB MCV 82.0-100.0 fL MCV 90.8 LAB MCH 27.0-31.3 pg MCH High alert 31.6 LAB MCHC 33.0-37.0 % MCHC 34.8 LAB RDW 11.5-14.5 % RDW 14.3 LAB SEGR % Neutrophils 26.5 LAB LYMPR % Lymphocytes 61.1 LAB MONOR % Monocytes 10.1 LAB EOSR % Eosinophils 1.3 LAB BASOR % Basophils 1.0 LAB ASEGR 1.4-6.5 K/uL Absolute Neutrophils 1.9 LAB ALYMR 1.0-4.8 K/uL Absolute Lymphocytes 4.3 LAB AMONR 0.2-0.8 K/uL Absolute Monocytes 0.7 LAB AEOSR 0.0-0.7 K/uL Absolute Eosinophils 0.1 LAB ABASR 0.0-0.2 K/uL Absolute Basophils 0.1 LAB PLT 130-400 K/uL Platelet Count 133 LAB PLTR Platelet Slide Review Adequate MAGNESIUM Collected: 09/26/2017 Status: F Source: [facility] 5:06 AM [facility] REPOSITORY Order Comment: CALL Miller LC2W tel. [phone], potassium results called to and read back by dc strickland, 09/26/2017 06:07, by DEBLA TYPE CODE TESTS RESULT OUT OF REFERENCE UNITS RANGE LAB MG 1.7-2.3 mg/dL Magnesium 1.9 BASIC METABOLIC PANEL Collected: 09/26/2017 Status: F Source: [facility] 5:06 AM [facility] REPOSITORY Order Comment: CALL Miller LC2W tel. [phone], potassium results called to and read back by dc strickland, 09/26/2017 06:07, by DEBLA TYPE CODE TESTS RESULT OUT OF REFERENCE UNITS RANGE LAB NA 132-144 mEq/L Sodium 141 LAB K 3.5-5.1 mEq/L Low alert Potassium 3.0 LAB CL 98-107 mEq/L Chloride 105 LAB CO2 22-29 mEq/L CO2 24 LAB AGAP 7-13 mEq/L Anion Gap 12 LAB GLU 74-109 mg/dL Glucose 103 LAB BUN 6-20 mg/dL BUN 8 LAB CREA 0.50-0.90 mg/dL Creatinine 0.67 LAB GFR >60 GFR >60.0 Result Comment: >60 mL/min/1.73m2 EGFR, calc. for ages 18 and older using the MDRD formula (not corrected for weight), is valid for stable renal function. LAB GFRAA >60 eGFR >60.0 Result Comment: >60 mL/min/1.73m2 EGFR, calc. for ages 18 and older using the MDRD formula (not corrected for weight), is valid for stable renal function. LAB CA 8.6-10.2 mg/dL Low Calcium 7.7 HEMOGLOBIN AND Collected: 09/25/2017 Status: F Source: [facility] HEMATOCRIT 5:46 AM [facility] REPOSITORY TYPE CODE TESTS RESULT OUT OF REFERENCE UNITS RANGE LAB HGB 12.0-16.0 g/dL Low Hemoglobin 11.0 LAB HCT 37.0-47.0 % Low Hematocrit 32.1 COMPREHENSIVE METABOLIC Collected: 09/25/2017 Status: F Source: [facility] 5:46 AM [facility] REPOSITORY TYPE CODE TESTS RESULT OUT OF REFERENCE UNITS RANGE LAB NA 132-144 mEq/L Sodium 141 LAB KX 3.5-5.1 mEq/L Potassium reflex 3.5 Mg LAB CL 98-107 mEq/L Chloride 104 LAB CO2 22-29 mEq/L CO2 24 LAB AGAP 7-13 mEq/L Anion Gap 13 LAB GLU 74-109 mg/dL Glucose 95 LAB BUN 6-20 mg/dL BUN 8 LAB CREA 0.50-0.90 mg/dL Creatinine 0.67 LAB GFR >60 GFR >60.0 Result Comment: >60 mL/min/1.73m2 EGFR, calc. for ages 18 and older using the MDRD formula (not corrected for weight), is valid for stable renal function. LAB GFRAA >60 eGFR >60.0 Result Comment: >60 mL/min/1.73m2 EGFR, calc. for ages 18 and older using the MDRD formula (not corrected for weight), is valid for stable renal function. LAB CA 8.6-10.2 mg/dL Low Calcium 8.5 LAB TP 6.4-8.1 g/dL Total Protein 6.5 LAB ALB 3.9-4.9 g/dL Low Albumin 3.5 LAB BILIT 0.0-1.2 mg/dL Bilirubin Total 0.3 LAB ALP 40-130 U/L Alkaline Phosphatase 53 LAB ALT 0-33 U/L ALT High alert 34 LAB AST 0-35 U/L AST 27 LAB GLOB 2.3-3.5 g/dL Globulin 3.0 MAGNESIUM Collected: 09/25/2017 Status: F Source: [facility] 5:46 AM [facility] REPOSITORY TYPE CODE TESTS RESULT OUT OF REFERENCE UNITS RANGE LAB MG 1.7-2.3 mg/dL Low Magnesium 1.5 CBC WITH PLATELET AND Collected: 09/24/2017 Status: F Source: [facility] 6:42 PM [facility] REPOSITORY TYPE CODE TESTS RESULT OUT OF REFERENCE UNITS RANGE LAB WBCIR 4.8-10.8 K/uL WBC 10.0 LAB RBC 4.20-5.40 M/uL Low RBC 4.10 LAB HGB 12.0-16.0 g/dL Hemoglobin 13.0 LAB HCT 37.0-47.0 % Low Hematocrit 36.5 LAB MCV 82.0-100.0 fL MCV 89.0 LAB MCH 27.0-31.3 pg MCH High alert 31.6 LAB MCHC 33.0-37.0 % MCHC 35.5 LAB RDW 11.5-14.5 % RDW 14.3 LAB PLT 130-400 K/uL Platelet Count 175 LAB SEGR % Neutrophils 61.1 LAB LYMPR % Lymphocytes 28.3 LAB MONOR % Monocytes 9.4 LAB EOSR % Eosinophils 0.6 LAB BASOR % Basophils 0.6 LAB ASEGR 1.4-6.5 K/uL Absolute Neutrophils 6.1 LAB ALYMR 1.0-4.8 K/uL Absolute Lymphocytes 2.8 LAB AMONR 0.2-0.8 K/uL Absolute High alert Monocytes 0.9 LAB AEOSR 0.0-0.7 K/uL Absolute Eosinophils 0.1 LAB ABASR 0.0-0.2 K/uL Absolute Basophils 0.1 LACTIC ACID Collected: 09/24/2017 Status: F Source: [facility] 6:15 [facility] REPOSITORY TYPE CODE TESTS RESULT OUT OF REFERENCE UNITS RANGE LAB LACID 0.5-2.2 mmol/L Lactic Acid 1.5 COMPREHENSIVE METABOLIC Collected: 09/24/2017 Status: F Source: [facility] 6:15 [facility] REPOSITORY TYPE CODE TESTS RESULT OUT OF REFERENCE UNITS RANGE LAB NA 132-144 mEq/L Sodium 139 LAB K 3.5-5.1 mEq/L Low Potassium 3.3 LAB CL 98-107 mEq/L Chloride 99 LAB CO2 22-29 mEq/L CO2 26 LAB AGAP 7-13 mEq/L Anion High alert Gap 14 LAB GLU 74-109 mg/dL Glucose 106 LAB BUN 6-20 mg/dL BUN 10 LAB CREA 0.50-0.90 mg/dL Creatinine 0.80 LAB GFR >60 GFR >60.0 Result Comment: >60 mL/min/1.73m2 EGFR, calc. for ages 18 and older using the MDRD formula (not corrected for weight), is valid for stable renal function. LAB GFRAA >60 eGFR >60.0 Result Comment: >60 mL/min/1.73m2 EGFR, calc. for ages 18 and older using the MDRD formula (not corrected for weight), is valid for stable renal function. LAB CA 8.6-10.2 mg/dL Calcium 9.1 LAB TP 6.4-8.1 g/dL Total Protein 7.4 LAB ALB 3.9-4.9 g/dL Albumin 4.1 LAB BILIT 0.0-1.2 mg/dL Bilirubin Total 0.3 LAB ALP 40-130 U/L Alkaline Phosphatase 63 LAB ALT 0-33 U/L ALT High alert 43 LAB AST 0-35 U/L AST 28 LAB GLOB 2.3-3.5 g/dL Globulin 3.3 URINALYSIS, REFLEX TO Collected: 09/24/2017 Status: F Source: [facility] 6:15 PM [facility] REPOSITORY TYPE CODE TESTS RESULT OUT OF REFERENCE UNITS RANGE LAB UCOLR [place] Urine Color Yellow LAB UCLAR Clear Urine Clarity Clear LAB UGLU Negative mg/dL Urine Glucose Negative LAB UBIL Negative Urine Bilirubin Negative LAB UKET Negative mg/dL Urine Ketones Negative LAB USPG 1.005-1.03 Urine Specific [place] 1.012 LAB UBLD Negative Urine Blood Negative LAB UPH 5.0-9.0 Urine pH 6.5 LAB UPRO Negative mg/dL Urine Protein Negative LAB UURO < 2.0 E.U./dL Urine Urobilinogen 0.2 LAB UNIT Negative Urine Nitrites Negative LAB ULEU Negative Urine Leukocyte Negative Esterase LAB URFCX Urine Reflexed to Not Indicated Culture URINE MICROSCOPIC Collected: 09/23/2017 Status: F Source: [facility] 10:06 PM [facility] REPOSITORY TYPE CODE TESTS RESULT OUT OF REFERENCE UNITS RANGE LAB UWBC 0-5 /HPF Urine WBC 3-5 LAB URBC 0-2 /HPF Urine RBC 0-2 LAB UBAC /HPF Urine Bacteria Rare LAB UCRY1 Urine Crystals Few Ca. Oxalate URINALYSIS, REFLEX TO Collected: 09/23/2017 Status: F Source: [facility] 9:39 PM [facility] REPOSITORY TYPE CODE TESTS RESULT OUT OF RANGE REFERENCE UNITS LAB UCOLR [place]raw/[place] Urine Color Yellow LAB UCLAR Clear Urine Clarity Clear LAB UGLU Negative mg/dL Urine Glucose Negative LAB UBIL Negative Urine Bilirubin Negative LAB UKET Negative mg/dL Urine Ketones Negative LAB USPG 1.005-1.03 Urine Specific [place] >=1.099 LAB UBLD Negative Urine Blood Abnormal TRACE LAB UPH 5.0-9.0 Urine pH 7.0 LAB UPRO Negative mg/dL Urine Abnormal Protein >=300 LAB UURO < 2.0 E.U./dL Urine Urobilinogen 0.2 LAB UNIT Negative Urine Nitrites Negative LAB ULEU Negative Urine Leukocyte Negative Esterase LAB URFCX Urine Reflexed to YES Culture LACTIC ACID Collected: 09/23/2017 Status: F Source: [facility] 7:49 [facility] REPOSITORY TYPE CODE TESTS RESULT OUT OF REFERENCE UNITS RANGE LAB LACID 0.5-2.2 mmol/L High alert Lactic Acid 2.9 ALCOHOL Collected: 09/23/2017 Status: F Source: [facility] 7:[address] [place] [address] REPOSITORY TYPE CODE TESTS RESULT OUT OF REFERENCE UNITS RANGE LAB ETOH mg/dL Alcohol, (Ethanol) <10 LAB BACAL G/dL Blood Alcohol Concentration Not indicated CBC WITH PLATELET AND Collected: 09/23/2017 Status: F Source: [facility] 7:[address] [place] [address] REPOSITORY TYPE CODE TESTS RESULT OUT OF REFERENCE UNITS RANGE LAB WBCIR 4.8-10.8 K/uL WBC 7.9 LAB RBC 4.20-5.40 M/uL RBC 4.71 LAB HGB 12.0-16.0 g/dL Hemoglobin 14.7 LAB HCT 37.0-47.0 % Hematocrit 42.2 LAB MCV 82.0-100.0 fL MCV 89.7 LAB MCH 27.0-31.3 pg MCH 31.2 LAB MCHC 33.0-37.0 % MCHC 34.8 LAB RDW 11.5-14.5 % RDW 14.4 LAB PLT 130-400 K/uL Platelet Count 187 LAB SEGR % Neutrophils 65.7 LAB LYMPR % Lymphocytes 22.5 LAB MONOR % Monocytes 11.1 LAB EOSR % Eosinophils 0.1 LAB BASOR % Basophils 0.6 LAB ASEGR 1.4-6.5 K/uL Absolute Neutrophils 5.2 LAB ALYMR 1.0-4.8 K/uL Absolute Lymphocytes 1.8 LAB AMONR 0.2-0.8 K/uL Absolute High alert Monocytes 0.9 LAB AEOSR 0.0-0.7 K/uL Absolute Eosinophils 0.0 LAB ABASR 0.0-0.2 K/uL Absolute Basophils 0.0 TROPONIN Collected: 09/23/2017 Status: F Source: [facility] 7:49 PM [facility] REPOSITORY TYPE CODE TESTS RESULT OUT OF REFERENCE UNITS RANGE LAB TROP 0.000-0.01 ng/mL Troponin <0.010 Result Comment: Methodology by Troponin T. LIPASE Collected: 09/23/2017 Status: F Source: [facility] 7:49 [facility] REPOSITORY TYPE CODE TESTS RESULT OUT OF REFERENCE UNITS RANGE LAB LIPAS 13-60 U/L Lipase 14 COMPREHENSIVE METABOLIC Collected: 09/23/2017 Status: F Source: [facility] 7:49 [facility] REPOSITORY TYPE CODE TESTS RESULT OUT OF REFERENCE UNITS RANGE LAB NA 132-144 mEq/L Sodium 139 LAB K 3.5-5.1 mEq/L Low Potassium 3.2 LAB CL 98-107 mEq/L Low Chloride 97 LAB CO2 22-29 mEq/L CO2 26 LAB AGAP 7-13 mEq/L Anion High alert Gap 16 LAB GLU 74-109 mg/dL Glucose High alert 113 LAB BUN 6-20 mg/dL BUN 12 LAB CREA 0.50-0.90 mg/dL High alert Creatinine 1.12 LAB GFR >60 Low GFR 54.4 Result Comment: >60 mL/min/1.73m2 EGFR, calc. for ages 18 and older using the MDRD formula (not corrected for weight), is valid for stable renal function. LAB GFRAA >60 eGFR >60.0 Result Comment: >60 mL/min/1.73m2 EGFR, calc. for ages 18 and older using the MDRD formula (not corrected for weight), is valid for stable renal function. LAB CA 8.6-10.2 mg/dL Calcium 9.6 LAB TP 6.4-8.1 g/dL Total Protein 8.1 LAB ALB 3.9-4.9 g/dL Albumin 4.3 LAB BILIT 0.0-1.2 mg/dL Bilirubin Total 0.3 LAB ALP 40-130 U/L Alkaline Phosphatase 71 LAB ALT 0-33 U/L ALT High alert 59 LAB AST 0-35 U/L AST 31 LAB GLOB 2.3-3.5 g/dL Globulin High alert 3.8 Observed: 09/23/2017 Status: F Source: [facility] CULTURE, BLOOD 7:49 PM [facility] REPOSITORY ORDERED BY: SHELBY PERALES SOURCE: Blood COLLECTED: 09/23/17 19:49 [facility] [place].: RECEIVED : 09/23/17 19:54 Culture, Blood FINAL 09/28/17 22:15 No growth after 5 days of incubation. Observed: 09/23/2017 Status: F Source: [facility] CULTURE, BLOOD 2 7:49 PM [facility] REPOSITORY ORDERED BY: SHELBY PERALES SOURCE: Blood COLLECTED: 09/23/17 19:49 [facility] [place].: RECEIVED : 09/23/17 19:54 Culture, Blood 2 FINAL 09/28/17 22:15 No growth after 5 days of incubation. POCT VENOUS Collected: 09/23/2017 Status: F Source: [facility] 7:26 PM [facility] REPOSITORY TYPE CODE TESTS RESULT OUT OF RANGE REFERENCE UNITS LAB CREAP 0.6-1.1 mg/dL High POC alert Creatinine 1.2 LAB GFR >60 GFR Abnormal 50 Result Comment: >60 mL/min/1.73m2 EGFR, calc. for ages 18 and older using the MDRD formula (not corrected for weight), is valid for stable renal function. LAB GFRAA >60 eGFR >60 Result Comment: >60 mL/min/1.73m2 EGFR, calc. for ages 18 and older using the MDRD formula (not corrected for weight), is valid for stable renal function. LAB TYPEP POC Sample Type BIGG LAB PERFP POC Performed on SEE BELOW Result Comment: Performed on POC CT ABDOMEN PELVIS W Observed: 09/23/2017 Status: F Source: [facility] IV CONTRAST 7:00 PM [facility] REPOSITORY EXAMINATION: CT ABDOMEN PELVIS W IV CONTRAST CLINICAL HISTORY: Central abdominal pain. Vomiting. Duration of symptoms is unknown. COMPARISONS: NONE AVAILABLE TECHNIQUE: Spiral axial images of the abdomen and pelvis were obtained following intravenous administration of 100 mL [id number]. Multiplanar two-dimensional reformatting was performed. FINDINGS: There is no free peritoneal fluid or air. There is no abscess or mass in the abdominal cavity, retroperitoneum or pelvis. There is no bowel obstruction. There is no urinary tract obstruction. The stomach small bowel and colon are unremarkable. The appendix is not directly visualized. There are no secondary signs of appendicitis. The liver is unremarkable. Bile ducts are nondilated. The gallbladder is unremarkable. The pancreas spleen adrenal glands and kidneys are unremarkable. There is no hydronephrosis. There are no urinary tract collecting system stones. Urinary bladder is unremarkable. The uterus and adnexa are surgically absent. There is no abdominal wall hernia. There is no acute pr ocess in the spine. There is no acute process at the lung bases. IMPRESSION: NO ACUTE PROCESS All CT scans at this facility use dose modulation, iterative reconstruction, and/or weight based dosing when appropriate to reduce radiation dose to as low as reasonably achievable. Interpreted by: Aysha Mendoza MD Signed by: Aysha Mendoza MD 09/23/17 Final result XR CHEST PORTABLE Observed: 09/23/2017 Status: F Source: [facility] 7:00 PM [facility] REPOSITORY EXAMINATION: XR CHEST PORTABLE CLINICAL HISTORY: Vomiting and abdominal pain for 2 days COMPARISONS: None available. FINDINGS: Single AP portable view the chest is 2018 at 1924 hours. The heart is not enlarged. Mediastinum is not widened or shifted. There is granulomatous scarring in the left lung. There is no acute p rocess in the lungs. The chest wall is unremarkable. CONCLUSION: NO ACUTE PROCESS Interpreted by: Aysha Mendoza MD Signed by: Aysha Mendoza MD 09/23/17 Final result UR DRUGS OF ABUSE Collected: 09/23/2017 Status: F Source: [facility] PANEL 7:00 PM [facility] REPOSITORY TYPE CODE TESTS RESULT OUT OF REFERENCE UNITS RANGE LAB UAMP1 Negative < UR Amphetamines Neg Screen LAB UBAR1 Negative < UR Barbiturates Neg Screen LAB UBEN1 Negative < UR Benzo Screen Neg LAB UCAN1 Negative < UR Cannabinoids Neg Screen LAB UCOC1 Negative < UR Cocaine Screen Neg LAB UOPI1 Negative < UR Opiates Screen Neg LAB UPCP1 Negative < UR PCP Screen Neg LAB DRUGC Drug Screen Comment see below Result Comment: This method is a screening test to detect only these drug classes as part of a medical workup. Confirmatory testing by another method should be ordered if clinically indicated. Observed: 09/23/2017 Status: F Source: [facility] CULTURE, URINE 7:00 PM [facility] REPOSITORY ORDERED BY: SHELBY PERALES SOURCE: Urine Clean Catch COLLECTED: 09/23/17 19:00 ANTIBIOTICS AT [place].: RECEIVED : 09/23/17 22:53 Culture, Urine INTERIM 09/25/17 11:09 25,000 CFU/ml Staph aureus MRSA Sensitivity to follow CONTACT PRECAUTIONS INDICATED PBP2= POSITIVE Observed: 09/23/2017 Status: F Source: [facility] 7:00 PM [facility] REPOSITORY ORDERED BY: SHELBY PERALES SOURCE: Urine Clean Catch COLLECTED: 09/23/17 19:00 ANTIBIOTICS AT [place].: RECEIVED : 09/23/17 22:53 CALL Miller LCED tel. [phone], ., 09/26/2017 09:31, by SANDRO MRSA results called to and read back by Steven, 09/25/2017 11:10, by ELIU Nova, Urine FINAL 09/26/17 09:32 25,000 CFU/ml Staph aureus MRSA CONTACT PRECAUTIONS INDICATED PBP2= POSITIVE S.aureus MRSA ANTIBIOTICS [facility]GER Interp Cefazolin R Ceftriaxone R Nitrofurantoin <=16 S Oxacillin >=4 R Trimethoprim/Sulfamethoxazole <=10 S Vancomycin <=0.5 S S=SUSCEPTIBLE I=INTERMEDIATE R=RESISTANT CT LUNG MEDIASTINUM W Observed: 09/19/2017 Status: F Source: [facility] 11:28 AM [facility] REPOSITORY EXAM: CT LUNG MEDIASTINUM W CONTRST 09/19/2017 8:20 AM EDT History: R91.1 Comparison: January 31, 2014 CT chest was performed with intravenous contrast. Findings: The heart is normal in size. There is no pericardial effusion. The aorta is nonaneurysmal. No mediastinal mass is present. There is no thoracic lymphadenopathy. The lungs are well expanded. There are calcified granulomas in the left lower lobe, left hilum, and mediastinum. No focal infiltrates, noncalcified nodules, or pulmonary mass are identified. There is no vascular congestion, or pleural effusion. No pneumothorax is present. No endobronchial lesion is seen. Included upper abdomen is unremarkable. No destructive bony lesion is seen. Summary: No evidence for metastatic disease is seen. Technologist: TK Dictated By: GONSALO CESPEDES MD Signed By: GONSALO CESPEDES MD Signed Out: 09/19/17 11:26:51 Observed: 08/29/2017 Status: F Source: [facility] BLOOD 7:00 PM [facility] [address] [place] [id number] Name: VIELKA IBARRA : 1980 Admitting Provider: Gender: Female [facility] [phone] Number: Location: [facility]; EX16; 1 Admit 08/24/2017 Date: Discharge 08/24/2017 Date: Microbiology PROCEDURE: C BLOOD SOURCE: Blood BODY SITE: COLLECTED DATE/TIME: 08/24/2017 13:40 EDT RECEIVED DATE/TIME: 08/24/2017 13:50 EDT START DATE/TIME: 08/24/2017 13:50 EDT FREE TEXT SOURCE: ORDERING PHYSICIAN: OSKAR LANCE PA-C FINAL REPORTS Final Report [] Verified Date/Time: 08/29/2017 19:00 EDT No growth after 5 days. L=Low, H= High, *= Abnormal, C=Critical, f=Footnote, c=Corrected, i=Interp Data Name: VIELKA IBARRA Print Date/ 08/29/2017 19:00 EDT Time: Performed By: #### [id number] #### [facility] [address] [place] [address] Family Practitioner: Tavo Nguyen MD Observed: 08/29/2017 Status: F Source: [facility] BLOOD 7:00 PM [facility] [address] [place] [address] Name: VIELKA IBARRA : 1980 Admitting Provider: Gender: Female [facility] [phone] Number: Location: [facility]; EX16; 1 Admit 08/24/2017 Date: Discharge 08/24/2017 Date: Microbiology PROCEDURE: C BLOOD SOURCE: Blood BODY SITE: COLLECTED DATE/TIME: 08/24/2017 13:44 EDT RECEIVED DATE/TIME: 08/24/2017 13:50 EDT START DATE/TIME: 08/24/2017 13:50 EDT FREE TEXT SOURCE: ORDERING PHYSICIAN: OSKAR LANCE PA-C FINAL REPORTS Final Report [] Verified Date/Time: 08/29/2017 19:00 EDT No growth after 5 days. L=Low, H= High, *= Abnormal, C=Critical, f=Footnote, c=Corrected, i=Interp Data Name: VIELKA IBARRA Print Date/ 08/29/2017 19:00 EDT Time: Performed By: #### [id number] #### [facility] [address] [place] [address] Family Practitioner: Tavo Nguyen MD DAILY PROGRESS Observed: 08/28/2017 Status: COMPLETED Source: [facility] 7:42 AM [facility]ITALS REPOSITORY Service: Plastic Surgery Subjective Data: VIELKA IBARRA is a 37 year old Female who is Hospital Day # 5. Swelling improved from yesterday on PO abx, tolerating well. Objective Data: Objective Information: T PRBPSpO2 [id number]/42640% Date/Time08/28 5: 5: 5: 5: 5:10 Range(36.4C - 37C ) (68 - 94 ) (18 - 18 ) (121 - 150 )/ (80 - 91 ) (100% - 100% ) Highest temp of 37 C was recorded at 08/27 22:00 Pain with Activity reported at 08/27 7:56: 8 Pain at Rest reported at 08/27 7:56: 8 Physical Exam: Constitutional: NAD, AOx3 Respiratory/Thorax: breathing comfortably on room air Musculoskeletal: R dorsal wrist s/p I&D, packing removed no additional purulent drainage no pain on axial loading of wrist swelling and erythema significantly improved Assessment and Plan: Assessment: 37F with R dorsal wrist abscess s/p I&D. Per paitnet she gets multiple abscesses intermittently without clear etiology - denies IVDU. Possible that this may be due to surreptitious IVDU, but also may be due to immunocompromised state. W/u per primary team. XR obtained, which does not show joint pathology or FB. -Cont elevation and compression of RUE -soap soaks TID x 20 mins - would continue for additional 3d as an outpatient. -wrap with kerlix between soaks -abx per primary -Will follow while patient is in house; ok for discharge from plastics perspective -f/u hand clinic in 2 weeks: [phone] Jacob Murillo MD PGY-1, Plastic Surgery pager: [phone] Electronic Signatures: Zak James) (Signed 29-Aug-2017 11:46) Authored: Signature/Cosignature/Attestation Co-Signer: Service, Subjective Data, Objective Data, Assessment and Plan, Signature/Cosignature/Attestation Carolina Murillo ( (Resident)) (Signed 28-Aug-2017 07:44) Authored: Service, Subjective Data, Objective Data, Assessment and Plan, Signature/Cosignature/Attestation Last Updated: 29-Aug-2017 11:46 by Zak James) CBC AND DIFFERENTIAL Collected: 08/28/2017 Status: CANCELLED Source: [facility] 12:30 AM [facility]ITALS REPOSITORY Order Comment: TEST CBC AND DIFFERENTIAL WAS CANCELLED, 08/28/2017 10:16 PATIENT REFUSED RN SRUTHI NOTIFIED. TYPE CODE TESTS RESULT OUT OF REFERENCE UNITS RANGE LAB WBCR(LOINC ) WBC Canceled LAB NRBC(LOINC ) NUCLEATED RBC Canceled LAB RBCCT(LOIN C) RBC Canceled LAB HGB(LOINC) HGB Canceled LAB HCT(LOINC) HCT Canceled LAB MCV(LOINC) MCV Canceled LAB MCHC2(LOIN C) MCHC Canceled LAB PLTCT(LOIN C) PLT Canceled LAB RDWCV(LOIN C) RDW-CV Canceled LAB NEUT(LOINC ) % NEUTROPHIL Canceled LAB IG(LOINC) % AUTOMATED Canceled IMMATURE GRAN Result Comment: Percent differential counts (%) should be interpreted in the context of the absolute cell counts (cells/L). LAB LYMPH(LOINC) % LYMPHOCYTE Canceled LAB MONO(LOINC) % MONOCYTE Canceled LAB EOS(LOINC) % EOSINOPHIL Canceled LAB BASO(LOINC) % BASOPHIL Canceled LAB #NEUT(LOINC) NEUTROPHIL Canceled LAB #LYMP(LOINC) LYMPHOCYTE Canceled LAB #MONO(LOINC) MONOCYTE Canceled LAB #EOS(LOINC) EOSINOPHIL Canceled LAB #BASO(LOINC) BASOPHIL Canceled LAB MDIF(LOINC) DIFFERENTIAL Canceled Performed By: #### CBCDF #### [facility] [address] [place] [address] RENAL FUNCTION PANEL Collected: 08/28/2017 Status: CANCELLED Source: [facility] 12:30 AM [facility]ITALS REPOSITORY Order Comment: TEST RENAL FUNCTION PANEL WAS CANCELLED, 08/28/2017 10:16 PATIENT REFUSED ANDREW NEGRO NOTIFIED. TYPE CODE TESTS RESULT OUT OF REFERENCE UNITS RANGE LAB GLU(LOINC) GLUCOSE Canceled LAB SOD(LOINC) SODIUM Canceled LAB K(LOINC) POTASSIUM Canceled LAB CHLOR(LOIN C) CHLORIDE Canceled LAB BIC(LOINC) BICARBONATE Canceled LAB ANGAP(LOIN C) ANION GAP Canceled LAB UREA(LOINC ) UREA NITROGEN Canceled LAB CREA(LOINC ) CREATININE Canceled LAB GFRFN(LOIN C) GFR-NON AM. Canceled LAB GFRAA(LOIN C) GFR- AM. Canceled Result Comment: CALCULATIONS OF ESTIMATED GFR ARE PERFORMED USING THE MDRD STUDY EQUATION FOR THE IDMS-TRACEABLE CREATININE METHODS. CLIN CHEM 2007;53:766-72 LAB CA(LOINC) CALCIUM Canceled LAB PHOS(LOINC) PHOSPHORUS Canceled Result Comment: The performance characteristics of phosphorus testing in heparinized plasma have been validated by the individual laboratory site where testing is performed. Testing on heparinized plasma is not approved by the FDA; however, such approval is not necessary. LAB ALB(LOINC) Canceled ALBUMIN Performed By: #### RENAL #### [facility] [address] [place] [address] DAILY PROGRESS Observed: 08/27/2017 Status: COMPLETED Source: [facility] 4:07 PM [facility]ITALS REPOSITORY Service: Plastic Surgery Subjective Data: VIELKA IBARRA is a 37 year old Female who is Hospital Day # 4. Swelling improved from yesterday No fevers Cx 3+ MRSA. Objective Data: Objective Information: T PRBPSpO2 [id number]/49527% Date/Time08/27 13: 13: 13: 13: 13:29 Range(36.3C - 36.6C ) (66 - 76 ) (18 - 20 ) (120 - 124 )/ (74 - 85 ) (99% - 100% ) Pain with Activity reported at 08/27 7:56: 8 Pain at Rest reported at 08/27 7:56: 8 Physical Exam: Constitutional: NAD, AOx3 Respiratory/Thorax: breathing comfortably on room air Musculoskeletal: R dorsal wrist s/p I&D, packing removed additional purulent drainage expressed on palpation no pain on axial loading of wrist swelling and erythema improved from previous exam Assessment and Plan: Assessment: 37F with R dorsal wrist abscess s/p I&D. Per paitnet she gets multiple abscesses intermittently without clear etiology - denies IVDU. Possible that this may be due to surreptitious IVDU, but also may be due to immunocompromised state. W/u per primary team. XR obtained, which does not show joint pathology or FB. -Cont elevation and compression of RUE -soap soaks TID x 20 mins - would continue for 4d as an outpatient. -wrap with kerlix between soaks -abx per primary -Will follow while patient is in house -f/u hand clinic in 2 weeks: [phone] Jacob Murillo MD PGY-1, Plastic Surgery pager: [phone] Electronic Signatures: Zak James) (Signed 27-Aug-2017 19:23) Authored: Signature/Cosignature/Attestation Co-Signer: Service, Subjective Data, Objective Data, Assessment and Plan, Signature/Cosignature/Attestation Carolina Murillo (Resident)) (Signed 27-Aug-2017 16:11) Authored: Service, Subjective Data, Objective Data, Assessment and Plan, Signature/Cosignature/Attestation Last Updated: 27-Aug-2017 19:23 by Zak James) BN MR WRIST W/O-W Observed: 08/27/2017 Status: F Source: [facility] 11:49 AM [facility]ITALS REPOSITORY Patient Name: VIELKA IBARRA STUDY: BN MR WRIST W/O-W CONTRAST; 08/27/2017 11:49 am INDICATION: Signs/Symptoms: Abscess s/p IETED - r/o tenosinovitis, Lie Flat: Yes, Pre Med: No. COMPARISON: 08/25/2017 radiographs. ACCESSION NUMBER(S): [id number] ORDERING CLINICIAN: PASCUAL ANGELO TECHNIQUE: Multiplanar, multisequence MRI of the right hand without and following administration of 10 cc intravenous MultiHance. FINDINGS: There is cellulitis of the dorsum of the hand and wrist without drainable fluid collection. Foci of susceptibility artifact in the dorsum of the hand could be from recent incision and drainage. No evidence of flexor or extensor tenosynovitis. The muscles are normal in signal without pyomyositis. The marrow signal is normal without evidence of osteomyelitis, stress or acute traumatic fracture. IMPRESSION: Dorsal hand and wrist cellulitis without abscess. No evidence of tenosynovitis. Normal marrow signal without osteomyelitis. Electronically signed by: MARGE KEVIN MD DISCHARGE PROFILE2 Observed: 08/27/2017 Status: UNK Source: [facility] 11:05 AM [facility]ITALS REPOSITORY Discharge Orders: Anticipated Discharge Date: ? Anticipated Discharge [id number] Problem List: Admitting Dx: ? Abscess: Catalog Name: Cutaneous abscess, unspecified Hospital Providers: Provider RoleProvider Name ? AttendingHiAnnika patel Activity: activity as tolerated. May shower. May drive. Diet: ? Dietregular Wound Care 1: ? Other Instructions- Continue elevation and compression of right arm - Soap soaks TID x 20 mins - continue for additional 3d as an outpatient. - Wrap with kerlix between soaks Call Provider If (Homegoing Patients): Fever of 100.4 F (38 C) or higher. Chills. Any new concerning symptoms. Increased pain, swelling, redness, or drainage around the site of your skin infection. Hospital Course (Home Care/Gold Form): Hospital Course: ? Hospital Course: include significant abnormal lab values Ms. Ibarra is a 37-year-old woman transferred to [facility] from [facility] for the management of abscesses. She has a history of recurrent abscesses on her arms, axillary and sometimes her feet, over the last year or so. She had pain and swelling in her face a couple of weeks ago, and was given a course of oral doxycycline for it. The original symptoms improved. The day after she completed the antibiotics, she noticed redness, warmth, pain and swelling of her left forearm, restricting movement of her left wrist. A couple of days ago, she felt feverish and also noticed similar symptoms over the right dorsal hand, with a purulent abscess. She presented to the [facility] ED where her vitals were stable. Labs were significant for a neutrophilic leukocytosis of 12,000 and lactate of 3, with a mild ZULY likely secondary to dehydration. She was also found to have a UTI. A Utox was negative. She was started on broad-spectrum antibiotics (Vanc/Zosyn) and transferred here for further management since she needed a hand surgery consultation. In the ED here, she was seen by hand surgery and underwent incision and drainage of her right upper extremity abscess. Cultures were sent from the pus. Dermatology was consulted due to concern for pyoderma gangrenosum by the ED, but the lesions were more consistent with abscesses. The patient has been on Suboxone in the past for unclear indications, but denies a history of drug abuse, though current presentation was somewhat concerning for possible IV drug use. She does have a history of hepatitis C, which she thinks she acquired several years ago while getting a tattoo. UDS was negative on admission with exception of Oxycodone which she had received upon presentation for pain control. Following admission, recurrent abscesses were speculated to be related to potential IV drug use vs. concern for hidradenitis suppurativa in setting of groin and axillary lesions vs. possible autoimmune dysfunction. Vanc/Zosyn were initially continued, however wound culture returned growing MRSA, thus Zosyn was stopped and patient was continued on Vancomycin. Blood cultures from admission positive for coag negative staph, however was felt to be contaminant in setting of OSH cultures showing NGTD and repeat cultures at [facility] being negative. With wound culture growing MRSA and swelling of joint, X-Ray of R wrist was performed to assess for any abnormalities and deemed negative for osteomyelitis. Due to continued concern for possible septic joint vs. tenosynovitis, MRI was ordered and also returned negative. At that time, patient was transitioned to PO Doxycycline (per culture sensitivities) in preparation for homegoing for 10 day total course. Patient to continue TID soap/water immersions and Kerlex wrapping until follow up with outpatient provider. Also received treatment with mupirocin and chlorhexidine prior to discharge in setting of MRSA colonization. Of note, to consider possible immunology referral outpatient if patient has recurrent skin/soft tissue infections after current hospitalization and treatment. Immunological workup was performed during this hospital stay, however, and largely unremarkable (normal immunoglobulins with exception of mild elevation in IgM, likely in setting of acute infection, normal RUT). Patient also had HIV testing which was negative. HCV viral load was elevated as expected in patient with known HCV and untreated state. Patient was referred to hepatology to establish care for HCV. Marcus Rojas, PGY1 Internal Medicine-Pediatrics Pager [phone] Infectious Disease: ? MRSAyes ? MRSA SiteR Forearm ? Isolation TypeContact Provider FINAL REVIEW of Orders: Final Review: ? Final Review of Medication Reconciliation and Orders Completedby Physician ? Reviewing ProviderJujt Rojas MD (Resident) at 28-Aug-2017 10:13:15 Appointments: Follow-Up Appointment 01: ? Physician/Dept/ServiceDr. [facility]hot[facility] - [facility] ? Scheduled Date/[id number] 15:00 ? [id number] [place] [address] ? Phone [phone] ? CommentsPlease arrive 10-15 minutes early, discharge summary, bring photo ID, current list of medications & dosages, insurance cards and any copay that may apply. If unable to keep this appointment, please call to cancel at least 24 hrs prior to appointment. Follow-Up Appointment 02: ? Physician/Dept/ServiceDr. Jose Escamilla - Hepatology ? Scheduled Date/[id number] 10:40 ? [place] [address] ? Phone [phone] option 2 ? CommentsPlease arrive 10-15 minutes early, bring photo ID, current list of medications & dosages, insurance cards and any copay that may apply. If unable to keep this appointment, please call to cancel at least 24 hrs prior to appointment. Follow-Up Appointment 03: ? Physician/Dept/ServicePlastic Surgery, Hand Clinic ? Call to Schedule in2 weeks ? Phone [phone] ? CommentsPlease call to schedule a follow-up appointment for approximately 2 weeks post-hospital discharge. Electronic Signatures: Elvin Self (PT ACC REP) (Signed 27-Aug-2017 11:13) Authored: Mohan, Gold Form - Managing Member Summary Lashanda Ojeda (Resident)) (Signed 27-Aug-2017 12:53) Authored: Discharge Orders Marcus Rojas ( (Resident)) (Signed 28-Aug-2017 10:43) Authored: Discharge Orders, Hospital Course (Home Care/Gold Form), Provider FINAL REVIEW of Orders, Appointments Last Updated: 28-Aug-2017 10:43 by Marcus Rojas ( (Resident)) Observed: 08/27/2017 Status: F Source: [facility] BLOOD CULTURE, 8:50 AM HOSPITALS REPOSITORY BACTERIAL PATIENT: VIELKA IBARRA LOCATION: [place] [address] BILL#: [id number] : [birth year] AGE: SEX: F ORDERED BY: ELSA ROJAS SOURCE: Blood COLLECTED: 08/27/17 08:50 ANTIBIOTICS AT [place].: RECEIVED : 08/27/17 10:16 SITE: R E S U L T S BLOOD CULTURE, BACTERIAL FINAL 09/01/17 11:42 No Growth at 1 days No Growth at 2 days No Growth at 3 days No Growth at 4 days NO GROWTH - FINAL REPORT Performed By: #### BLDC #### [facility] [address] [place] [address] CBC AND DIFFERENTIAL Collected: 08/27/2017 Status: F Source: [facility] 7:58 AM HOSPITALS REPOSITORY TYPE CODE TESTS RESULT OUT OF REFERENCE UNITS RANGE LAB WBCR(LOINC 4.4 - 11.3 x10E9/L ) WBC 8.5 LAB NRBC(LOINC 0.0-0.0 /100 WBC ) NUCLEATED RBC 0.0 LAB RBCCT(LOIN 4.00 - 5.20 x10E12/L C) RBC 4.53 LAB HGB(LOINC) 12.0 - 16.0 g/dL HGB 13.5 LAB HCT(LOINC) 36.0 - 46.0 % HCT 41.8 LAB MCV(LOINC) 80 - 100 fL MCV 92 LAB MCHC2(LOIN 32.0 - 36.0 g/dL C) MCHC 32.3 LAB PLTCT(LOIN 150 - 450 x10E9/L C) PLT 331 LAB RDWCV(LOIN 11.5 - 14.5 % C) RDW-CV 13.0 LAB NEUT(LOINC 40.0 - 80.0 % ) % NEUTROPHIL 43.3 LAB IG(LOINC) 0.0 - 0.9 % % AUTOMATED 0.5 IMMATURE GRAN Result Comment: Percent differential counts (%) should be interpreted in the context of the absolute cell counts (cells/L). LAB LYMPH(LOINC) 13.0 - % 44.0 % High LYMPHOCYTE 46.2 LAB MONO(LOINC) 2.0 - 10.0 % % MONOCYTE 6.4 LAB EOS(LOINC) 0.0 - 6.0 % % EOSINOPHIL 3.1 LAB BASO(LOINC) 0.0 - 2.0 % % BASOPHIL 0.5 LAB #NEUT(LOINC) 1.20 - x10E9/L 7.70 NEUTROPHIL 3.69 LAB #LYMP(LOINC) 1.20 - x10E9/L 4.80 LYMPHOCYTE 3.92 LAB #MONO(LOINC) 0.10 - x10E9/L 1.00 MONOCYTE 0.54 LAB #EOS(LOINC) 0.00 - x10E9/L 0.70 EOSINOPHIL 0.26 LAB #BASO(LOINC) 0.00 - x10E9/L 0.10 BASOPHIL 0.04 Performed By: #### CBCDF #### [facility] [id number] [place] [address] RENAL FUNCTION PANEL Collected: 08/27/2017 Status: F Source: [facility] 7:58 AM HOSPITALS REPOSITORY TYPE CODE TESTS RESULT OUT OF REFERENCE UNITS RANGE LAB GLU(LOINC) 74 - 99 mg/dL GLUCOSE 87 LAB SOD(LOINC) 136 - 145 mmol/L SODIUM 140 LAB K(LOINC) 3.5 - 5.3 mmol/L POTASSIUM 4.4 LAB CHLOR(LOIN 98 - 107 mmol/L C) CHLORIDE 104 LAB BIC(LOINC) 21 - 32 mmol/L BICARBONATE 25 LAB ANGAP(LOIN 10 - 20 mmol/L C) ANION GAP 15 LAB UREA(LOINC 6 - 23 mg/dL ) UREA NITROGEN 14 LAB CREA(LOINC 0.50 - 1.05 mg/dL ) CREATININE 0.83 LAB GFRFN(LOIN >60 mL/min/1.7 C) 3m2 GFR-NON AM. >60 LAB GFRAA(LOIN >60 mL/min/1.7 C) 3m2 GFR- AM. >60 Result Comment: CALCULATIONS OF ESTIMATED GFR ARE PERFORMED USING THE MDRD STUDY EQUATION FOR THE IDMS-TRACEABLE CREATININE METHODS. CLIN CHEM 2007;53:766-72 LAB CA(LOINC) 8.6 - 10.6 mg/dL CALCIUM 9.6 LAB PHOS(LOINC) 2.5 - 4.9 mg/dL PHOSPHORUS 3.6 Result Comment: The performance characteristics of phosphorus testing in heparinized plasma have been validated by the individual laboratory site where testing is performed. Testing on heparinized plasma is not approved by the FDA; however, such approval is not necessary. LAB ALB(LOINC) 3.4 - 5.0 g/dL ALBUMIN 3.8 Performed By: #### RENAL #### [facility] [address] [place] [address] Observed: 08/27/2017 Status: F Source: [facility] BLOOD CULTURE, 7:58 AM HOSPITALS REPOSITORY BACTERIAL PATIENT: VIELKA IBARRA LOCATION: [place] [address] BILL#: [id number] : [birth year] AGE: SEX: F ORDERED BY: ELSA ROJAS SOURCE: Blood COLLECTED: 08/27/17 07:58 ANTIBIOTICS AT [place].: RECEIVED : 08/27/17 10:14 SITE: R E S U L T S BLOOD CULTURE, BACTERIAL FINAL 09/01/17 11:42 No Growth at 1 days No Growth at 2 days No Growth at 3 days No Growth at 4 days NO GROWTH - FINAL REPORT Performed By: #### BLDC #### [facility] [address] [place] [address] DAILY PROGRESS Observed: 08/27/2017 Status: COMPLETED Source: [facility] , 7:14 AM HOSPITALS REPOSITORY [place] Service: Medicine [place] Subjective Data: VIELKA IBARRA is a 37 year old Female who is Hospital Day # 4. Discussed with attending physician, Dr. Francisco. Additional Information: Doing well overnight. Had another headache concerning for migraine and received another dose of Sumitriptan. Blood cultures from OSH have continued to be negative x2 days at this time. Repeat cultures here have shown NGTD. Swelling and pain overall improved, though continues to have decreased ROM/function of R hand/wrist. Objective Data: Objective Information: T PRBPSpO2 [id number]/7499% Date/Time08/27 5: 5: 5: 5: 5:06 Range(36.3C - 36.5C ) (66 - 74 ) (18 - 20 ) (120 - 124 )/ (74 - 83 ) (99% - 100% ) Pain with Activity reported at 08/26 22:24: 8 Pain at Rest reported at 08/26 22:24: 8 Physical Exam: Constitutional: No active distress Eyes: No pallor or icterus ENMT: Mucous membranes moist Respiratory/Thorax: Clear to auscultation bilaterally Cardiovascular: Regular rate and rhythm, no m/r/g Gastrointestinal: Soft, nontender Extremities: No pedal edema Neurological: No neurovascular deficits Skin: Small puncture-like bazzi on both ventral forearms as well as on the fingers Right upper extremity is currently in a wrapping, improved swelling of distal fingers, limited range of motion of R wrist and hand/fingers Left forearm abscess with improved tenderness to palpation, overlying skin breakdown, less warmth or fluctuance, still some induration Medication: Medications: Continuous Medications No continuous medications are active Scheduled Medications 1. Heparin SubCutaneous: 5000 unit(s) SubCutaneous Every 12 Hours 2. Mupirocin 2%: 1 application(s) Each Nostril 2 Times a Day 3. Nicotine 7 mg/ 24 hour TransDermal: 1 patch TransDermal Every 24 Hours 4. Vancomycin 1 gram IVPB/ Premixed Soln 200 mL: 200 mL IntraVenous Piggyback Every 12 Hours PRN Medications 1. Acetaminophen: 650 mg Oral Every 4 Hours 2. Ondansetron Injectable: 4 mg IntraVenous Push Every 6 Hours 3. oxyCODONE Immediate Release: 5 mg Oral Every 4 Hours Recent Lab Results: Results: I have reviewed these laboratory results: Vancomycin Level, Trough Trending View [id number] 13:31:00 26-Aug-2017 01:30:00 Vancomycin Level, Znhpfa75.9 14.9 Culture, Blood 26-Aug-2017 11:32:00 ResultValue Culture, Blood NEGATIVE TO DATE, CULTURE IN PROGRESS. Drug Screen, Urine 25-Aug-2017 16:28:00 ResultValue Comments. SEE BELOW Drug screen results are presumptive and should not be used to assess compliance with prescribed medication. Contact the performing [facility] laboratory to add-on definitive confirmatory testing if clinically indicated. . Toxicology scre Amphetamine Screen, Urine PRESUMPTIVE NEGATIVE CUTOFF LEVEL: 500 NG/ML Cross-reactivity has been reported with high concentrations of the following drugs: buproprion, chloroquine, chlorpromazine, ephedrine, mephentermine, fenfluramine, phentermine, phenylpropanolamine Barbiturate Screen, Urine PRESUMPTIVE NEGATIVE PRESUMPTIVE NEGATIVE CUTOFF LEVEL: 200 NG/ML Benzodiazepine Screen, Urine PRESUMPTIVE NEGATIVE PRESUMPTIVE NEGATIVE CUTOFF LEVEL: 200 NG/ML Cannabinoid Screen, Urine PRESUMPTIVE NEGATIVE PRESUMPTIVE NEGATIVE CUTOFF LEVEL: 50 NG/ML Cocaine Metabolite Screen, Urine PRESUMPTIVE NEGATIVE PRESUMPTIVE NEGATIVE CUTOFF LEVEL: 150 NG/ML Methadone Screen, Urine PRESUMPTIVE NEGATIVE CUTOFF LEVEL: 150 NG/ML The metabolite W-ggqwt-gmyfvdimcpriby (LAAM) is not detected by this method in concentrations that would be found in the urine of patients on LAAM therapy. Opiate Screen, Urine PRESUMPTIVE POSITIVE CUTOFF LEVEL: 300 NG/ML The opiate screen does not detect fentanyl, meperidine, or tramadol. Oxycodone is not consistently detected (refer to Oxycodone Screen, Urine result). A Oxycodone Screen, Urine (item) PRESUMPTIVE POSITIVE CUTOFF LEVEL: 100 NG/ML This test will accurately detect both oxycodone and oxymorphone. A PCP Screen, Urine PRESUMPTIVE NEGATIVE CUTOFF LEVEL: 25 NG/ML Cross-reactivity has been reported with dextromethorphan. I have reviewed these laboratory results: Complete Blood Count + Differential 27-Aug-2017 07:58:00 ResultValue White Blood Cell Count 8.5 Nucleated Erythrocyte Count 0.0 Red Blood Cell Count 4.53 HGB 13.5 HCT 41.8 MCV 92 MCHC 32.3 PLT 331 RDW-CV 13.0 Neutrophil % 43.3 Immature Granulocytes % 0.5 Lymphocyte % 46.2 H Monocyte % 6.4 Eosinophil % 3.1 Basophil % 0.5 Neutrophil Count 3.69 Lymphocyte Count 3.92 Monocyte Count 0.54 Eosinophil Count 0.26 Basophil Count 0.04 Renal Function Panel 27-Aug-2017 07:58:00 ResultValue Glucose, Serum 87 NA 140 K 4.4 CL 104 Bicarbonate, Serum 25 Anion Gap, Serum 15 BUN 14 CREAT 0.83 GFR-Non >60 GFR- >60 Calcium, Serum 9.6 Phosphorus, Serum 3.6 ALB 3.8 Radiology Results: Results: Impression: 1. No acute fracture or dislocation of the right wrist. No radiographic evidence for foreign body within the right wrist. 2. Mild soft tissue swelling about the dorsal aspect of the right wrist with a cutaneous lesion. No radiographicevidence for infection of osseous structures within the right wrist. If clinical concern persists for osteomyelitis, MRI is recommended for further characterization. Xray Wrist Complete Min 3 View [Aug 26 2017 11:51AM] Assessment and Plan: Comorbidities: Comorbidity: anemia Anemia: anemia of chronic disease, in setting of ?Crohn's Assessment: Ms. Ibarra is a 37-year-old woman with hepatitis C, prior ovarian cancer, prior Suboxone treatment for unclear reasons, ?heroin use history, and reported Crohn's disease not currently on treatment, transferred here from [facility] for the management of abscesses, which have since been drained by hand surgery. Patient has presented with abscesses multiple times in past several months of unclear etiology. Potentially related to ?IV drug use vs. concern for hidradenitis suppurativa in setting of groin and axillary lesions vs. possible autoimmune dysfunction. Started on Vanc/Zosyn at time of admission with wound culture returning growing MRSA and blood culture growing coag negative staph (likely contaminant in setting of OSH cultures showing NGTD). X-Ray of R wrist to assess for any joint unremarkable for osteomyelitis, however MRI ordered to assess for any concern for septic joint vs. tenosynovitis. # R Forearm Abscess, MRSA - Continue Vancomycin at current dose; trough level within appropriate limits - MRI R hand/wrist to assess for septic joint vs. tenosynovitis - If MRI negative and blood cultures continue to be NGTD, plan to transition to PO antibiotics for total ~10-day course (likely Bactrim vs. Doxycycline) - Kerlex wrapping, soap/water immersions TID; keep arm elevated above level of heart - Blood cultures growing coag negative staph from admission (likely contaminant); OSH cultures NGTD x2 days per discussion with micro lab at - No need for TTE at this time - Immunology workup largely unremarkable (normal immunoglobulins with exception of mild elevation in IgM, likely in setting of acute infection); RUT, ANCA pending - PRN Tylenol, Oxycodone for pain control - Contact Precautions for MRSA abscess - Suspicion for surreptitious IV drug use based on history of Suboxone treatment and puncture-like bazzi on forearms (although she has been to the ED recently where she has had IVs and blood draws) # Reported history of Crohn's disease, Hep C, Vomiting and Weight loss - HIV negative - Hep C viral load elevated; will need outpatient follow-up/referral for treatment - Attempt to obtain prior colonoscopy/biopsy reports - Low suspicion for cancer recurrence at this time F: PO E: Replete as needed N: Regular Diet GI: None DVT Prophylaxis: SCDs, Heparin Code Status: Full Code Marcus Rojas, PGY1 Internal Medicine-Pediatrics Pager [phone] Signature/Cosignature/Attestation: Attending AttestationI saw and evaluated the patient. I personally obtained the hankins and critical portions of the history and physical exam or was physically present for hankins and critical portions performed by the resident/fellow. I reviewed the resident/fellow?s documentation and discussed the patient with the resident/fellow. I agree with the resident/fellow?s medical decision making as documented in the resident?s note. I personally evaluated the patient (as noted in the above attestation) on 27-Aug-2017 Electronic Signatures: Annika Francisco) (Signed 27-Aug-2017 16:02) Authored: Signature/Cosignature/Attestation Co-Signer: Service, Subjective Data, Objective Data, Assessment and Plan, Signature/Cosignature/Attestation Marcus Rojas (Resident)) (Signed 27-Aug-2017 10:52) Authored: Service, Subjective Data, Objective Data, Assessment and Plan, Signature/Cosignature/Attestation Last Updated: 27-Aug-2017 16:02 by Annika Francisco) CLINICAL EVENT Observed: 08/26/2017 Status: UNK Source: [facility]-DERMATOLOGY FOLLOW-UP 8:02 PM HOSPITALS REPOSITORY Event: Topic: Dermatology follow-up Details: S: Patient seen and evaluated at bedside. O: Patient afebrile. In no acute distress on evaluation SKIN: Involving her upper extremities, face, neck, anterior chest and abdomen, LE were examined with the following findings. - On her L medial forearm is a 2-3 cm indurated plaque with overlying desquamative scaling. - On evaluation this afternoon right forearm wrapped and not evaluated. Patient deferred unwrapping wound at time of evaluation. A/P: 37F hx of CD, Ovarian cancer (s/p chemorads, hysterectomy) being evaluated by dermatology for multiple abscesses. -S/p Right wrist I/D with positive cx growing MRSA - On vancomycin - Continue wound care/soaks per plastic surgery - Plastics recommended immunology consult to evaluate why patient continues to have recurrent abscesses -Dermatology signing-off at this time Thank you for the consultation of this patient. Please page the Dermatology team pager [phone]) with any questions. Plan discussed with primary team verbally on the phone. Sherry Weiss DO Dermatology Resident, PGY-2 Pager: [phone] Electronic Signatures: Sherry Weiss ( (Resident)) (Signed 26-Aug-2017 20:14) Authored: Event Last Updated: 26-Aug-2017 20:14 by Sherry Weiss ( (Resident)) VANCOMYCIN,TROUGH Collected: Status: F Source: [facility] 08/26/2017 1:31 PM HOSPITALS REPOSITORY TYPE CODE TESTS RESULT OUT OF RANGE REFERENCE UNITS LAB VANCT(LOINC 5.0 - 20.0 ug/mL ) 16.9 VANCOMYCIN,T ROUGH Result Comment: Vancomycin levels should be interpreted in conjunction with the dose, disease being treated, vancomycin HOLGER, time of draw (trough concentrations should be obtained just before the next dose at steady-state), and other clinical information. Trough concentrations of 15-20 ug/mL are desired for severe infections. Ref.: Am J Health-Syst Pharm 66: 83-98, 2008. Performed By: #### VANCT #### [facility] [address] [place] [address] DAILY PROGRESS Observed: 08/26/2017 Status: COMPLETED Source: [facility]-PLASTIC SURGERY 1:10 PM HOSPITALS REPOSITORY Service: Plastic Surgery Subjective Data: VIELKA IBARRA is a 37 year old Female who is Hospital Day # 3. Swelling improved from yesterday No fevers Cx 3+ S. aureus, no sensitivties. Objective Data: Objective Information: T PRBPSpO2 Value36.12766561/5699% Date/Time08/26 5: 5: 5: 5: 5:49 Range(36.5C - 37C ) (62 - 82 ) (17 - 18 ) (93 - 126 )/ (55 - 75 ) (98% - 100% ) Highest temp of 37 C was recorded at 08/25 23:00 Pain with Activity reported at 08/26 9:00: 8 Pain at Rest reported at 08/26 9:00: 8 Physical Exam: Constitutional: NAD, AOx3 Respiratory/Thorax: breathing comfortably on room air Musculoskeletal: R dorsal wrist s/p I&D, packing removed additional purulent drainage expressed on palpation no pain on axial loading of wrist Assessment and Plan: Assessment: 37F with R dorsal wrist abscess s/p I&D. Per paitnet she gets multiple abscesses intermittently without clear etiology - denies IVDU. Possible that this may be due to surreptitious IVDU, but also may be due to immunocompromised state. W/u per primary team. XR obtained, which does not show joint pathology or FB. -Cont elevation and compression of RUE -soap soaks TID x 20 mins -wrap with kerlix between soaks -IV abx with MRSA coverage, continue to follow sensitivities -Will follow while patient is in house -Rec outpatient immunology consult Seen/discussed with chief resident Dr. Sebastien Murillo MD PGY-1, Plastic Surgery pager: [phone] Electronic Signatures: Zak James) (Signed 27-Aug-2017 19:23) Authored: Signature/Cosignature/Attestation Co-Signer: Service, Subjective Data, Objective Data, Assessment and Plan, Signature/Cosignature/Attestation Carolina Murillo (Resident)) (Signed 26-Aug-2017 13:13) Authored: Service, Subjective Data, Objective Data, Assessment and Plan, Signature/Cosignature/Attestation Last Updated: 27-Aug-2017 19:23 by Zak James) Observed: 08/26/2017 Status: F Source: [facility] BLOOD CULTURE, 11:32 AM HOSPITALS REPOSITORY BACTERIAL PATIENT: VIELKA IBARRA LOCATION: [place] [id number] BILL#: [id number] : 78 AGE: SEX: F ORDERED BY: PASCUAL ANGELO SOURCE: Blood COLLECTED: 08/26/17 11:32 ANTIBIOTICS AT [place].: RECEIVED : 08/26/17 14:21 SITE: R E S U [facility] T S BLOOD CULTURE, BACTERIAL FINAL 08/31/17 15:42 No Growth at 1 days No Growth at 2 days No Growth at 3 days No Growth at 4 days NO GROWTH - FINAL REPORT Performed By: #### BLDC #### [facility] [address] [place] [address] DAILY PROGRESS Observed: 08/26/2017 Status: COMPLETED Source: [facility] NOTE-MEDICINE , 7:23 AM HOSPITALS REPOSITORY [place] Service: Medicine [place] Subjective Data: VIELKA IBARRA is a 37 year old Female who is Hospital Day # 3. Discussed with attending physician, Dr. Francisco. Additional Information: Patient doing well this AM. R hand wrapped with improvement in pain. Complained of headache yesterday, consistent with migraines patient typically gets. Received Imitrex x1 shortly after headache onset with relief. Patient has been afebrile, however blood cultures from admission returned growing gram positive cocci in clusters. Wound culture growing MRSA. Objective Data: Objective Information: T P R BP SpO2 Value 36.5 62 18 113/56 99% Date/Time 08/26 5:49 08/26 5:49 08/26 5:49 08/26 5:49 08/26 5:49 Range (36.5C - 37C ) (62 - 82 ) (17 - 18 ) (93 - 126 )/ (55 - 75 ) (98% - 100% ) Highest temp of 37 C was recorded at 08/25 23:00 Pain with Activity reported at 08/25 17:21: 8 Pain at Rest reported at 08/26 2:09: 8 Physical Exam: Constitutional: No active distress Eyes: No pallor or icterus ENMT: Mucous membranes moist Head/Neck: Cervical lymphadenopathy present Respiratory/Thorax: Clear to auscultation bilaterally Cardiovascular: Regular rate and rhythm, no m/r/g Gastrointestinal: Soft, nontender Extremities: No pedal edema Neurological: No neurovascular deficits Skin: Small puncture-like bazzi on both ventral forearms as well as on the fingers Right upper extremity is currently in a wrapping, improved swelling of distal fingers, limited range of motion of R wrist Left forearm abscess with improved tenderness to palpation, overlying skin breakdown, less warmth and fluctuance, still some induration Medication: Medications: Continuous Medications No continuous medications are active Scheduled Medications 1. Heparin SubCutaneous: 5000 unit(s) SubCutaneous Every 12 Hours 2. Nicotine 7 mg/ 24 hour TransDermal: 1 patch TransDermal Every 24 Hours 3. Piperacillin - Tazobactam 3.375 gram/Iso-osmotic 50 mL Premix IVPB: 50 mL IntraVenous Piggyback Every 6 Hours 4. Vancomycin 1 gram IVPB/ Premixed Soln 200 mL: 200 mL IntraVenous Piggyback Every 12 Hours PRN Medications 1. Acetaminophen: 650 mg Oral Every 4 Hours 2. oxyCODONE Immediate Release: 5 mg Oral Every 4 Hours Recent Lab Results: Results: I have reviewed these laboratory results: Vancomycin Level, Trough 26-Aug-2017 01:30:00 Result Value Vancomycin Level, Trough 14.9 Drug Screen, Urine 25-Aug-2017 16:28:00 Result Value Comments. SEE BELOW Drug screen results are presumptive and should not be used to assess compliance with prescribed medication. Contact the performing [facility] laboratory to add-on definitive confirmatory testing if clinically indicated. . Toxicology scre Amphetamine Screen, Urine PRESUMPTIVE NEGATIVE CUTOFF LEVEL: 500 NG/ML Cross-reactivity has been reported with high concentrations of the following drugs: buproprion, chloroquine, chlorpromazine, ephedrine, mephentermine, fenfluramine, phentermine, phenylpropanolamine Barbiturate Screen, Urine PRESUMPTIVE NEGATIVE PRESUMPTIVE NEGATIVE CUTOFF LEVEL: 200 NG/ML Benzodiazepine Screen, Urine PRESUMPTIVE NEGATIVE PRESUMPTIVE NEGATIVE CUTOFF LEVEL: 200 NG/ML Cannabinoid Screen, Urine PRESUMPTIVE NEGATIVE PRESUMPTIVE NEGATIVE CUTOFF LEVEL: 50 NG/ML Cocaine Metabolite Screen, Urine PRESUMPTIVE NEGATIVE PRESUMPTIVE NEGATIVE CUTOFF LEVEL: 150 NG/ML Methadone Screen, Urine PRESUMPTIVE NEGATIVE CUTOFF LEVEL: 150 NG/ML The metabolite E-pmetb-txhncubpmwhnea (LAAM) is not detected by this method in concentrations that would be found in the urine of patients on LAAM therapy. Opiate Screen, Urine PRESUMPTIVE POSITIVE CUTOFF LEVEL: 300 NG/ML The opiate screen does not detect fentanyl, meperidine, or tramadol. Oxycodone is not consistently detected (refer to Oxycodone Screen, Urine result). A Oxycodone Screen, Urine (item) PRESUMPTIVE POSITIVE CUTOFF LEVEL: 100 NG/ML This test will accurately detect both oxycodone and oxymorphone. A PCP Screen, Urine PRESUMPTIVE NEGATIVE CUTOFF LEVEL: 25 NG/ML Cross-reactivity has been reported with dextromethorphan. I have reviewed these laboratory results: Culture, Blood 24-Aug-2017 23:39:00 Result Value Lab Comment: [facility] Called- RB to DR.IVRAHIM BESS, 08/26/2017 08:49 Organism Gram positive cocci, clusters ANAEROBIC VIAL POSITIVE IDENTIFICATION AND/OR ANTIBIOTIC SUSCEPTIBILITY IN PROGRESS. A Culture, Blood No Growth at 1 days [facility] Called- RB to DR.IVRAHIM BESS, 08/26/2017 08:49 A I have reviewed these laboratory results: Culture, Miscellaneous, includes smear 24-Aug-2017 20:41:00 Result Value Lab Comment: [id number] Gram Stain 4+ GRANULOCYTES. 1+ GRAM (+) COCCI Organism Staphylococcus aureus 3+ ANTIBIOTIC SUSCEPTIBILITY IN PROGRESS. METHICILLIN(OXACILLIN)RESISTANT METHICILLIN(OXACILLIN)RESISTANT STAPHYLOCOCCI ARE RESISTANT TO ALL CURRENTLY AVAILABLE PENICILLINS, BETA-LACTAM/BETA-LACTAMASE INHIBITOR COMBINAT A - Antibiotics Result-Interpretation - Ampicillin R Hankins S=Susceptible I=Intermediate R=Resistant NS=Non-Susceptible S-DD=Susceptible Dose DependentDependent X=Reported In Error - Ciprofloxacin S - Clindamycin R - Erythromycin R - Gentamicin S - Levofloxacin S - Oxacillin R - Penicillin R - Tetracycline S - Trimethoprim/ Sulfamethoxazole S - Vancomycin S Assessment and Plan: Comorbidities: Comorbidity: anemia Anemia: anemia of chronic disease, in setting of ?Crohn's Assessment: Ms. Ibarra is a 37-year-old woman with hepatitis C, prior ovarian cancer, prior Suboxone treatment for unclear reasons, ?heroin use history, and reported Crohn's disease not currently on treatment, transferred here from [facility] for the management of abscesses, which have since been drained by hand surgery. Patient has presented with abscesses multiple times in past several months of unclear etiology. Potentially related to ?IV drug use vs. concern for hidradenitis suppurativa in setting of groin and axillary lesions vs. possible autoimmune dysfunction. Started on Vanc/Zosyn at time of admission with wound culture returning today growing MRSA and blood cultures growing gram + cocci in clusters, awaiting further speciation/sensitivities. X-Ray of R wrist to assess for any joint involvement appears unremarkable, official read pending. # R Forearm Abscess, MRSA - Continue Vancomycin, stop Zosyn - Kerlex wrapping, soap/water immersions TID; keep arm elevated above level of heart - Blood cultures growing Gram + Cocci in clusters from admission; OSH cultures NGTD per discussion with micro lab at - Daily blood cultures - TTE in setting of positive blood cultures - Immunology workup largely unremarkable (normal immunoglobulins with exception of mild elevation in IgM, likely in setting of acute infection); RUT, ANCA pending - f/u final read wrist x-ray - PRN Tylenol, Oxycodone for pain control - Contact Precautions - Suspicion for surreptitious IV drug use based on history of Suboxone treatment and puncture-like bazzi on forearms (although she has been to the ED recently where she has had IVs and blood draws) # Reported history of Crohn's disease, Hep C, Vomiting and Weight loss - HIV negative - Hep C viral load pending - Attempt to obtain prior colonoscopy/biopsy reports - Low suspicion for cancer recurrence at this time F: PO E: Replete as needed N: Regular Diet GI: None DVT Prophylaxis: SCDs, Heparin Code Status: Full Code Marcus Rojas, PGY1 Internal Medicine-Pediatrics Pager [phone] Signature/Cosignature/Attestation: Attending Attestation I saw and evaluated the patient. I personally obtained the hankins and critical portions of the history and physical exam or was physically present for hankins and critical portions performed by the resident/fellow. I reviewed the resident/fellow?s documentation and discussed the patient with the resident/fellow. I agree with the resident/fellow?s medical decision making as documented in the resident?s note. I personally evaluated the patient (as noted in the above attestation) on 26-Aug-2017 Electronic Signatures: Annika Francisco) (Signed 26-Aug-2017 12:58) Authored: Signature/Cosignature/Attestation Co-Signer: Service, Subjective Data, Objective Data, Assessment and Plan, Signature/Cosignature/Attestation Marcus Rojas (Resident)) (Signed 26-Aug-2017 10:53) Authored: Service, Subjective Data, Objective Data, Assessment and Plan, Signature/Cosignature/Attestation Last Updated: 26-Aug-2017 12:58 by Annika Francisco) VANCOMYCIN,TROUGH Collected: Status: F Source: [facility] 08/26/2017 1:30 AM HOSPITALS REPOSITORY TYPE CODE TESTS RESULT OUT OF RANGE REFERENCE UNITS LAB VANCT(LOINC 5.0 - 20.0 ug/mL ) 14.9 VANCOMYCIN,T ROUGH Result Comment: Vancomycin levels should be interpreted in conjunction with the dose, disease being treated, vancomycin HOLGER, time of draw (trough concentrations should be obtained just before the next dose at steady-state), and other clinical information. Trough concentrations of 15-20 ug/mL are desired for severe infections. Ref.: Am J Health-Syst Pharm 66: 83-98, 2008. Performed By: #### VANCT #### [facility] [address] [place] [address] DRUG SCREEN,URINE Collected: 08/25/2017 Status: F Source: [facility] 4:28 PM HOSPITALS REPOSITORY TYPE CODE TESTS RESULT OUT OF REFERENCE UNITS RANGE LAB AMPH(LOIN NEGATIVE C) AMPHETAMINE PRESUMPTIVE SCREEN,U NEGATIVE Result Comment: CUTOFF LEVEL: 500 NG/ML Cross-reactivity has been reported with high concentrations of the following drugs: buproprion, chloroquine, chlorpromazine, ephedrine, mephentermine, fenfluramine, phentermine, phenylpropanolamine, pseudoephedrine, and propranolol. LAB MARÍA ELENA(LOINC) NEGATIVE BARBITURATES PRESUMPTIVE SCREEN,U NEGATIVE Result Comment: CUTOFF LEVEL: 200 NG/ML LAB BENZO(LOINC) NEGATIVE BENZODIAZEPINES SCREEN,U PRESUMPTIVE NEGATIVE Result Comment: CUTOFF LEVEL: 200 NG/ML LAB RICK(LOINC) NEGATIVE CANNABINOIDS PRESUMPTIVE SCREEN,U NEGATIVE Result Comment: CUTOFF LEVEL: 50 NG/ML LAB COCAI(LOINC) NEGATIVE COCAINE PRESUMPTIVE METABOLITE NEGATIVE SCREEN,U Result Comment: CUTOFF LEVEL: 150 NG/ML LAB METHD(LOINC) NEGATIVE PRESUMPTIVE METHADONE NEGATIVE SCREEN,U Result Comment: CUTOFF LEVEL: 150 NG/ML The metabolite F-fwwce-adkaeuytdrqjua (LAAM) is not detected by this method in concentrations that would be found in the urine of patients on LAAM therapy. LAB OPIAT(LOINC) NEGATIVE Abnormal OPIATES PRESUMPTIVE SCREEN,U POSITIVE Result Comment: CUTOFF LEVEL: 300 NG/ML The opiate screen does not detect fentanyl, meperidine, or tramadol. Oxycodone is not consistently detected (refer to Oxycodone Screen, Urine result). LAB OXYS2(LOINC) NEGATIVE Abnormal OXYCODONE PRESUMPTIVE SCREEN,U POSITIVE Result Comment: CUTOFF LEVEL: 100 NG/ML This test will accurately detect both oxycodone and oxymorphone. LAB PCP(LOINC) NEGATIVE PCP PRESUMPTIVE SCREEN,U NEGATIVE Result Comment: CUTOFF LEVEL: 25 NG/ML Cross-reactivity has been reported with dextromethorphan. LAB DRCOM(LOINC) DRUG SCREEN COMMENT SEE BELOW Result Comment: Drug screen results are presumptive and should not be used to assess compliance with prescribed medication. Contact the performing [facility] laboratory to add-on definitive confirmatory testing if clinically indicated. . Toxicology screening results are reported qualitatively. The concentration must be greater than or equal to the cutoff to be reported as positive. The concentration at which the screening test can detect an individual drug or metabolite varies. The absence of expected drug(s) and/or drug metabolite(s) may indicate non-compliance, inappropriate timing of specimen collection relative to drug administration, poor drug absorption, diluted/adulterated urine, or limitations of testing. For medical purposes only; not valid for forensic use. . Interpretive questions should be directed to the laboratory medical directors. Performed By: #### [email or web address] #### [facility] [address] [place] [address] DAILY PROGRESS Observed: 08/25/2017 Status: COMPLETED Source: [facility]-PLASTIC SURGERY 1:46 PM HOSPITALS REPOSITORY Service: Plastic Surgery Subjective Data: VIELKA IBARRA is a 37 year old Female who is Hospital Day # 2. R dorsal wrist s/p I&D yesterday. Objective Data: Objective Information: T P R BP SpO2 Value 37.2 79 19 110/68 99% Date/Time 08/25 5:34 08/25 5:34 08/25 5:34 08/25 5:34 08/25 5:34 Range (37.2C - 37.5C ) (72 - 92 ) (16 - 19 ) (110 - 131 )/ (68 - 88 ) (97% - 100% ) Highest temp of 37.5 C was recorded at 08/24 16:08 Pain with Activity reported at 08/25 11:01: 8 Pain at Rest reported at 08/25 11:01: 8 Physical Exam: Constitutional: NAD, AOx3 Musculoskeletal: R dorsal wrist s/p I&D, packing removed No further purulent drainage expressed on palpation Questionable pain on axial loading Assessment and Plan: Assessment: 37F with R dorsal wrist abscess s/p I&D. Per paitnet she gets multiple abscesses intermittently without clear etiology - denies IVDU. Possible that this may be due to surreptitious IVDU, but also may be due to immunocompromised state. W/u per primary team. XR obtained, which does not show joint pathology or FB. Cont elevating RUE, packing removed this AM, soap soaks TID x 20 mins, wrap with kerlix between soaks. IV abx with MRSA coverage. Will follow while patient is in house. Rec outpatient immunology consult. Melissa Lopez MD Signature/Cosignature/Attestation: Attending Attestation I saw and evaluated the patient. I personally obtained the hankins and critical portions of the history and physical exam or was physically present for hankins and critical portions performed by the resident/fellow. I reviewed the resident/fellow?s documentation and discussed the patient with the resident/fellow. I agree with the resident/fellow?s medical decision making as documented in the resident/fellow?s note with the exception/addition of the following: I personally evaluated the patient (as noted in the above attestation) on 25-Aug-2017 Comments/ Additional Findings See my consult note. Electronic Signatures: Genet Lira) (Signed 26-Aug-2017 09:13) Authored: Signature/Cosignature/Attestation Co-Signer: Service, Subjective Data, Objective Data, Assessment and Plan, Signature/Cosignature/Attestation SonMelissa DAPHNEY (Resident)) (Signed 25-Aug-2017 14:00) Authored: Service, Subjective Data, Objective Data, Assessment and Plan, Signature/Cosignature/Attestation Last Updated: 26-Aug-2017 09:13 by Genet Lira) EMR ADDON Collected: 08/25/2017 Status: F Source: [facility] 12:40 PM HOSPITALS REPOSITORY TYPE CODE TESTS RESULT OUT OF REFERENCE UNITS RANGE LAB EMRAC(LOIN C) ADDON CONFIRMATION REQUEST REC'D Performed By: #### EMRAD #### NO LOCATION NEEDED DAILY PROGRESS Observed: 08/25/2017 Status: COMPLETED Source: [facility] NOTE-MEDICINE , 11:31 AM HOSPITALS REPOSITORY [place] Service: Medicine [place] Subjective Data: VIELKA IBARRA is a 37 year old Female who is Hospital Day # 2. Discussed with attending physician, Dr. Francisco. Additional Information: Patient doing well this AM. R hand wrapped with some residual pain, though improved since pain medication administration. Denies any systemic symptoms including fever/chills, nausea, vomiting. Does admit to mild headache. Objective Data: Objective Information: T P R BP SpO2 Value 37.2 79 19 110/68 99% Date/Time 08/25 5:34 08/25 5:34 08/25 5:34 08/25 5:34 08/25 5:34 Range (37.2C - 37.5C ) (72 - 92 ) (16 - 19 ) (110 - 131 )/ (68 - 88 ) (97% - 100% ) Highest temp of 37.5 C was recorded at 08/24 16:08 Pain with Activity reported at 08/25 11:01: 8 Pain at Rest reported at 08/25 11:01: 8 Physical Exam: Constitutional: No active distress Eyes: No pallor or icterus ENMT: Mucous membranes moist Head/Neck: Cervical lymphadenopathy present Respiratory/Thorax: Clear to auscultation bilaterally Cardiovascular: Regular rate and rhythm, no m/r/g Gastrointestinal: Soft, nontender Extremities: No pedal edema Neurological: No neurovascular deficits Skin: Small puncture-like bazzi on both ventral forearms as well as on the fingers Right upper extremity is currently in a wrapping, swelling of distal fingers, limited range of motion of R wrist Left forearm abscess with mild tenderness to palpation, overlying skin breakdown, warmth and induration at site Medication: Medications: Continuous Medications No continuous medications are active Scheduled Medications 1. Heparin SubCutaneous: 5000 unit(s) SubCutaneous Every 12 Hours 2. Nicotine 7 mg/ 24 hour TransDermal: 1 patch TransDermal Every 24 Hours 3. Piperacillin - Tazobactam 3.375 gram/Iso-osmotic 50 mL Premix IVPB: 50 mL IntraVenous Piggyback Every 6 Hours 4. Vancomycin 1 gram IVPB/ Premixed Soln 200 mL: 200 mL IntraVenous Piggyback Every 12 Hours PRN Medications 1. Acetaminophen Oral Liquid: 650 mg Oral Every 6 Hours 2. oxyCODONE Immediate Release: 5 mg Oral Every 4 Hours Recent Lab Results: Results: I have reviewed these laboratory results: Urinalysis 25-Aug-2017 00:38:00 Result Value Color, Urine YELLOW Reference Range: STRAW,YELLOW Appearance, Urine HAZY Specific [place], Urine 1.021 pH, Urine 7.0 Protein, Urine NEGATIVE Glucose, Urine NEGATIVE Blood, Urine NEGATIVE Ketones, Urine NEGATIVE Bilirubin, Urine NEGATIVE Urobilinogen, Urine <2.0 Nitrite, Urine NEGATIVE Leukocyte Esterase, Urine LARGE (3+) A Urinalysis, Microscopic 25-Aug-2017 00:38:00 Result Value White Cells 132 A Red Blood Cells 6 A Epithelial Cells, Squamous 1 Mucous 1+ Immunoglobulins (G,A,M) 24-Aug-2017 23:42:00 Result Value Immunoglobulin G Level, Serum 1280 Immunoglobulin A Level, Serum 199 Immunoglobulin M Level, Serum 322 H Immunoglobulin G Subclasses 24-Aug-2017 23:42:00 Result Value Immunoglobulin G Level, Serum 1280 IgG Subclass 1 863 IgG Subclass 2 373 IgG Subclass 3 62 IgG Subclass 4 199 Hepatic Function Panel 24-Aug-2017 23:39:00 Result Value Aspartate Transaminase, Serum 24 ALB 3.7 T Bili 0.3 Bilirubin, Serum Direct - Conjugated 0.0 ALKP 59 Alanine Aminotransferase, Serum 37 T Pro 6.9 Complete Blood Count 24-Aug-2017 23:39:00 Result Value White Blood Cell Count 10.8 Nucleated Erythrocyte Count 0.0 Red Blood Cell Count 2.98 L HGB 9.0 L HCT 27.9 L MCV 94 MCHC 32.3 PLT 198 RDW-CV 13.3 Renal Function Panel 24-Aug-2017 23:39:00 Result Value Glucose, Serum 82 NA 144 K 3.8 CL 105 Bicarbonate, Serum 23 Anion Gap, Serum 20 BUN 12 CREAT 1.01 GFR-Non >60 GFR- >60 Calcium, Serum 9.2 Phosphorus, Serum 4.3 ALB 3.7 Coagulation Screen 24-Aug-2017 23:39:00 Result Value Prothrombin Time, Plasma 11.4 International Normalized Ratio, Plasma 1.0 Activated Partial Thromboplastin Time 24 L HIV Antigen/Antibody Screen 24-Aug-2017 23:39:00 Result Value HIV Ag/Ab Screen NON REACTIVE Reference Range: NONREACTIVE HIV Ag/Ab screen is performed using the Siemens Advia Centaur HIV Ag/Ab Combo assay which detects the presence of HIV p24 antigen as well as antibodies to HIV-1 (Group M and O) and HIV-2. Sedimentation Rate, Erythrocyte 24-Aug-2017 23:39:00 Result Value Sedimentation Rate, Erythrocyte 2 C Reactive Protein, Serum 24-Aug-2017 23:39:00 Result Value C Reactive Protein, Serum 1.52 A Culture, Blood 24-Aug-2017 23:39:00 Result Value Culture, Blood NEGATIVE TO DATE, CULTURE IN PROGRESS. Lactate, Level 24-Aug-2017 23:39:00 Result Value Lactate, Level 1.3 Culture, Miscellaneous, includes smear 24-Aug-2017 20:41:00 Result Value Lab Comment: [id number] Gram Stain 4+ GRANULOCYTES. 1+ GRAM (+) COCCI Assessment and Plan: Comorbidities: Comorbidity: anemia Anemia: anemia of chronic disease, in setting of ?Crohn's Assessment: Ms. Ibarra is a 37-year-old woman with hepatitis C, prior ovarian cancer, prior Suboxone treatment for unclear reasons, ?heroin use history, and reported Crohn's disease not currently on treatment, transferred here from [facility] for the management of abscesses, which have since been drained by hand surgery. Patient has presented with abscesses multiple times in past several months of unclear etiology. Potentially related to ?IV drug use vs. concern for hidradenitis suppurativa in setting of groin and axillary lesions vs. possible autoimmune dysfunction. Currently on broad spectrum antibiotics (Vanc/Zosyn) with cultures pending. Also to assess for any joint involvement with X-Ray of R wrist. # Abscesses - Likely infectious, suspicion for surreptitious IV drug use based on history of Suboxone treatment and puncture-like bazzi on forearms (although she has been to the ED recently where she has had IVs and blood draws) - Remove right upper extremity wrapping today, start soap water immersions TID; keep arm elevated - Follow up cultures blood - Follow up wound cultures, currently 4+ granulocytes, 1+ gram positive cocci - Follow up Wrist X-Ray - Continue Vanc/Zosyn, can narrow when cultures speciate - Inflammatory markers not significantly elevated - RUT, ANCA pending - Immunoglobulin levels unremarkable with exception of mildly elevated IgM - HIV negative - PRN Tylenol, Oxycodone for pain control # Reported history of Crohn's disease, Hep C, Vomiting and Weight loss - HIV negative - Hep C viral load pending - Attempt to obtain prior colonoscopy/biopsy reports - Low suspicion for cancer recurrence at this time F: PO E: Replete as needed N: Regular Diet GI: None DVT Prophylaxis: SCDs, Heparin Code Status: Full Code Marcus Rojas, PGY1 Internal Medicine-Pediatrics Pager [phone] Signature/Cosignature/Attestation: Attending Attestation I saw and evaluated the patient. I personally obtained the hankins and critical portions of the history and physical exam or was physically present for hankins and critical portions performed by the resident/fellow. I reviewed the resident/fellow?s documentation and discussed the patient with the resident/fellow. I agree with the resident/fellow?s medical decision making as documented in the resident?s note. I personally evaluated the patient (as noted in the above attestation) on 25-Aug-2017 Electronic Signatures: Annika Francisco) (Signed 26-Aug-2017 12:57) Authored: Signature/Cosignature/Attestation Co-Signer: Service, Subjective Data, Objective Data, Assessment and Plan, Signature/Cosignature/Attestation Marcus Rojas (Resident)) (Signed 25-Aug-2017 12:01) Authored: Service, Subjective Data, Objective Data, Assessment and Plan, Signature/Cosignature/Attestation Last Updated: 26-Aug-2017 12:57 by Annika Francisco) CBC Collected: 08/25/2017 Status: F Source: [facility] 11:15 AM HOSPITALS REPOSITORY TYPE CODE TESTS RESULT OUT OF REFERENCE UNITS RANGE LAB WBCR(LOINC 4.4 - 11.3 x10E9/L ) WBC 10.6 LAB NRBC(LOINC 0.0-0.0 /100 WBC ) NUCLEATED RBC 0.0 LAB RBCCT(LOIN 4.00 - 5.20 x10E12/L C) RBC 4.27 LAB HGB(LOINC) 12.0 - 16.0 g/dL HGB 12.9 LAB HCT(LOINC) 36.0 - 46.0 % HCT 40.1 LAB MCV(LOINC) 80 - 100 fL MCV 94 LAB MCHC2(LOIN 32.0 - 36.0 g/dL C) MCHC 32.2 LAB PLTCT(LOIN 150 - 450 x10E9/L C) PLT 290 LAB RDWCV(LOIN 11.5 - 14.5 % C) RDW-CV 13.2 Performed By: #### CBC #### [facility] [address] [place] [address] BN WRIST COMPLT; MIN Observed: 08/25/2017 Status: F Source: [facility] 3 VIEWS 9:57 AM HOSPITALS REPOSITORY Patient Name: VIELKA IBARRA STUDY: WRIST COMPLT; MIN 3 VIEWS; 08/25/2017 9:57 am INDICATION: Signs/Symptoms: infection - FB?. COMPARISON: None. ACCESSION NUMBER(S): [id number] ORDERING CLINICIAN: MELISSA LOPEZ FINDINGS: 3 images of the right wrist were obtained. No acute fracture or dislocation is visualized. The carpal joint spaces are preserved. There is no radiographic evidence for foreign body within the right wrist. Mild soft tissue swelling is visualized about the dorsal aspect of the right wrist with a cutaneous lesion. There is no radiographic evidence for osteomyelitis. IMPRESSION: 1. No acute fracture or dislocation of the right wrist. No radiographic evidence for foreign body within the right wrist. 2. Mild soft tissue swelling about the dorsal aspect of the right wrist with a cutaneous lesion. No radiographic evidence for infection of osseous structures within the right wrist. If clinical concern persists for osteomyelitis, MRI is recommended for further characterization. I personally reviewed the images/study and I agree with the findings as stated. This study was interpreted at [facility], [place], [place]. Electronically signed by: TANO VALDEZ MD DISCHARGE PLANNING Observed: 08/25/2017 Status: UNK Source: [facility] NOTE 1:28 AM HOSPITALS REPOSITORY Patient Learning: ? Factors that Impact Ability to Learnnone(1) Other Factors: ? Functional Screen: In the recent/past 2-4 weeks, patient or family have noticednew difficulty in safely performing activities of daily living(1) Discharge Planning: Discharge Plannin08/24/17 2300 Admission Note: Patient arrived to [facility] via transport from the ED she was accompanied with her significant other, all her belongings with her and they were put inside her room. She plans to transition back home once she had been discharged. Other needs will be assessed upon discharge. Ravi Heart RN Discharge note 08/28/2017 1055: pt discharged home. Verbalizes understanding of instructions and follow up. Rx and new medication info given. No IV access. Pt ambulated off floor with family. No concerns at this time. Wagner Monreal RN Electronic Signatures: Wagner Monreal (EZEQUIEL) (Signed 28-Aug-2017 10:55) Authored: Discharge Planning Note RAVI HEART) (Signed 25-Aug-2017 01:34) Authored: Discharge Planning Note Last Updated: 28-Aug-2017 10:55 by Wagner Monreal (EZEQUIEL) References: 1. Data Referenced From Admission Risk Screen - Adult 08/25/2017 12:15 AM URINALYSIS Collected: 08/25/2017 Status: F Source: [facility] 12:38 AM HOSPITALS REPOSITORY TYPE CODE TESTS RESULT OUT OF RANGE REFERENCE UNITS LAB COLU(LOIN STRAW,YELLOW C) COLOR YELLOW LAB APPRU(ROBERTO CLEAR NC) APPEARANCE HAZY LAB SPGRU(ROBERTO 1.005 - 1.035 NC) SPECIFIC GRAVITY 1.021 LAB BOGDAN(LOINC 5.0 - 8.0 ) pH 7.0 LAB PROTU(ROBERTO NEGATIVE mg/dL NC) PROTEIN NEGATIVE LAB GLUCU(ROBERTO NEGATIVE mg/dL NC) GLUCOSE NEGATIVE LAB BLDU(LOIN NEGATIVE C) BLOOD NEGATIVE LAB KETU(LOIN NEGATIVE mg/dL C) KETONES NEGATIVE LAB BILIU(ROBERTO NEGATIVE NC) BILIRUBIN NEGATIVE LAB UROU2(ROBERTO 0.0 - 1.9 mg/dL NC) UROBILINOGEN <2.0 LAB NITRU(ROBERTO NEGATIVE NC) NITRITE NEGATIVE LAB LEUKU(ROBERTO NEGATIVE NC) LEUKOCYTE Abnormal ESTERASE LARGE (3+) Performed By: #### UA #### [facility] [address] [place] [id number] UA MICROSCOPIC Collected: 08/25/2017 Status: F Source: [facility] 12:38 AM HOSPITALS REPOSITORY TYPE CODE TESTS RESULT OUT OF RANGE REFERENCE UNITS LAB WBCUR(LOIN 0-5 /HPF C) Abnormal WBC 132 LAB RBCUR(LOIN 0-5 /HPF C) Abnormal RBC 6 LAB EPSQE(LOIN /HPF C) SQUAMOUS 1 EPITH. CELLS LAB MUCOU(LOIN /LPF C) MUCUS 1+ Performed By: #### UAMIC #### [facility] [address] [place] [id number] URINE Observed: 08/25/2017 Status: F Source: [facility] CULTURE,BACTERIAL 12:38 AM HOSPITALS REPOSITORY PATIENT: VIELKA IBARRA LOCATION: [place] [address] BILL#: [id number] : 78 AGE: SEX: F ORDERED BY: HARDY HARDEN SOURCE: URINE COLLECTED: 08/25/17 00:38 ANTIBIOTICS AT [facility].: RECEIVED : 08/25/17 08:56 SITE: Clean Catch/Voided R E S U L T S URINE CULTURE,BACTERIAL FINAL 08/26/17 08:19 NO SIGNIFICANT GROWTH. Performed By: #### URINC #### [facility] [address] [place] [address] ADMISSION RISK SCREEN Observed: 08/25/2017 Status: UNK Source: [facility] - ADULT 12:15 AM HOSPITALS REPOSITORY Allergies: Allergies: ? No Known Allergies: Patient Verification: ? New W ID Band Applied in my Department no ? Type of ID Patient is Wearing W wristband, but not applied here ? Patient Transferred from Other Facility ([facility], [facility],etc) yes [facility] ? Patient Identity Verified By patient ? ID Band FULL Name, include Middle, spelling matches patient's ID used for verification yes ? ID Band Matches Patient ID used for Verfication yes ? ID Band MRN Matches EMR MRN yes Advance Directive: ? Advance Directive Medical no (1) ? Advance Directive Information Given patient/family declined ? Advance Directive Mental Health not applicable Falls Screen: Type of Assessment admission Moderate Risk Factors patient care equipment (scds, iv?s, chest tubes, escalante, etc) Risk for Injury Associated with Fall none Fall Risk Conclusion moderate falls risk with low risk for associated injury [place] Safety Interventions WDL *orient to call system *instruct to call for assistance before getting out of bed *non-slip footwear when patient is out of bed *call munoz in reach *personal items and telephone in reach *physically safe environment (no spills or clutter) *bed in lowest position with wheels locked *appropriate side rails in place *room/bathroom lighting operational, light cord in reach *appropriate signage on door, non-slip footwear when patient is out of bed, call munoz in reach Fall and Injury Risk Interventions educate pt/family, educate patient/family for risk for injury (fractures and bleeding) Family Violence Screen: ? Are you or have you been threatened or abused physically, emotionally, or sexually by anyone? no ? Has anyone ever threatened to hurt your family or your pets? no ? Does anyone try to keep you from having/contacting other friends or doing things outside your home? no ? Do you feel UNSAFE going back to the place where you are living? no ? Do you feel anyone has exploited or taken advantage of you financially or of your personal property? no ? Clinical assessment: Are there any apparent signs of injuries/behaviors that could be related to abuse/neglect no ? Social Service Consult for abuse/neglect needed this visit? no Functional screen: ? Functional Screen: In the recent/past 2-4 weeks, patient or family have noticed new difficulty in safely performing activities of daily living Learning Assessment (Patient): ? Patient is Able to be Assessed for Learning yes ? Factors Influencing Readiness to Learn acuteness of illness ? Factors that Impact Ability to Learn none ? Devices/Methods Used to Communicate none ? Learning Preferences verbal instruction ? Cultural Considerations none ? Developmental Considerations none ? Shinto Considerations none ? Other Learners spouse Learning Assessment (Other Learner): ? Other learner available no Suicide/Depression Screen: ? During the past month, have you often been bothered by feeling down, depressed or hopeless? no (1) ? During the past month, have you often had little interest or pleasure in doing things? no (1) ? Have you had any thoughts of harming yourself? no (1) ? Have you had any thoughts of harming anyone else? no (1) Adult Nutrition Screen: ? Have you recently lost weight without trying yes; 2-13 lb ? Have you been eating poorly because of a decreased appetite yes ? MST Score 2 ? Risk MST = 2 or more At Risk. Eating poorly and/or recent weight loss ? Nutrition Consult needed this visit? no ? Can Patient Participate in Room Service? yes ? Patient requires Paper Dishes/Plastic Utensils no Pain Screen: ? Pain Scale numerical 0-10 ? Pain Scale Education teaching provided ? Current Pain Level 7 = Severe ? Acceptable Pain Level 5 = Moderate ? Expression of Pain (nonverbal) moaning ? Lifestyle Changes/Adaptations in Response to Pain decreased activity level ? Barriers to Reporting Pain none ? Chronic Pain no Spiritual Screen: ? Are there any cultural, spiritual, catholic practices/values/needs that are important for us to know? no ? Do you want a visit/item from Pastoral Care? no ? Would you like your Websphere Process Server Developer/Personnel Scheduler notified? no CAGE: Is this an injured patient at a Trauma Center ([facility] / [facility]): no (1) Vaccinations: Vaccination - Influenza Vaccination Screen: ? Is it flu season? (between and ) Yes ? Screening for identified contraindications to influenza vaccination patient already received vaccine this season Vaccination - Pneumonia Vaccination Screen: ? Patient has received a previous pneumonia vaccine: yes Huey: Skin - Huey Scale: ? Huey: Sensory Perception (response to environment) (4) no impairment ? Huey: Moisture (degree skin exposed to moisture) (4) rarely moist ? Huey: Activity (ability to walk) (4) walks frequently ? Huey: Mobility (amount/control of body movement) (4) no limitation ? Huey: Nutrition (quality of food intake) (3) adequate ? Huey: Friction and Shear (3) no apparent problem ? Huey: Score 22 ? Skin Intervention Orders (Nursing orders will be generated) hygiene care Significant Indicatiors: Significant Indicators: Complete Pressure Injury: Pressure Injury Present on Admission no Electronic Signatures: RAVI HEART (RN) (Signed 25-Aug-2017 01:27) Authored: Admission Risk Screens, Vaccinations, Huey, Pressure Injury Last Updated: 25-Aug-2017 01:27 by RAVI HEART (RN) References: 1. Data Referenced From Risk Screen - Adult Emergency 08/24/2017 6:04 PM PATIENT PROFILE - Observed: 08/25/2017 Status: UNK Source: [facility] ADULT V2 12:06 AM HOSPITALS REPOSITORY Profile: Initial Info: How to be Addressed Vielka Spoken Language Preferred Algerian (1) Source of Information patient Are you currently using the Personal Electronic Health Record or [employer] no Are you interested in learning more about [employer] for the management of your health not at this time Stated Reason for Admission bilateral Abcesses Primary Contact Name and Number Tamiko Triplett Limitations on Visitors/Phone Calls none Temporary Family Living Arrangements (While Hospitalized) none needed Arrived From hospital Was Admitted To in Past 90 Days hospital Employment Status employed Current or Previous Service none Patient Belongings remains with patient Patient Belongings Remaining with Patient cell phone/electronics; jewelry; clothing Medications Brought to Hospital no General Health: Weight in kg 49.8 kilogram(s) Weight in lbs 109.7 pound(s) Height in cm 170.1 centimeter(s) BMI (kg/m2) 17.211 square meter Weight Method actual (measured) Scale Type standing Height Method stated Blood Avoidance/Restrictions none Previous Transfusion Reaction no Normal Bedtime/Wake Time 2300/0830 Nap Times/Length none Feel Rested Upon Awakening yes Sleep Aids/Routine medication; music; dark room RSP Based Care: How would you like to participate in your care? well informed What is the number one concern for you during this hospitalization? getting better What is the most important thing we can do to support you during this hospitalization? supplying needs Is there anything we need to know to best care for you? no Recent Change in Mood/Behavior denies Major Change/Loss/Stressor/Fears environment Techniques to [place] with Loss/Stress/Change spiritual practice(s) Hobbies gardening Substance: Current or Former Substance Use never: Alcohol, Street Drugs YES: Cigarette/Tobacco Tobacco Cessation Education (provide if tobacco use within the last 12 mos) yes Health Mgmt: Symptoms/Conditions Managed at Home gastrointestinal Are You Currently unable to answer (2) Gastrointestinal Management managed Gastrointestinal Symptoms/Conditions Comment crohn's disease Barriers to Managing Health none Are You no (2) Relationship/Environ: Primary Source of Support/Comfort spouse; child(anthony) Lives With spouse Living Arrangements house Significant Exposure none Resource/Environmental Concerns none Anticipated Transition To home Services Anticipated at Transition none Significant Indicators Complete Information Review: ? Allergies, Home Meds and Significant Events have been Reviewed and Verified with Patient/Family no ALLERGY, INTOLERANCE, ADVERSE EVENT: Allergies: ? No Known Allergies: Active Electronic Signatures: RAVI HEART (RN) (Signed 25-Aug-2017 01:28) Authored: Profile, Additional Information Last Updated: 25-Aug-2017 01:28 by RAVI HEART (ANDREW) References: 1. Data Referenced From Triage - ED 08/24/2017 4:08 PM 2. Data Referenced From History and Physical 08/24/2017 10:25 PM IMMUNOGLOBULINS (G,A,M) Collected: 08/24/2017 Status: F Source: [facility] [address] [place] [address] REPOSITORY TYPE CODE TESTS RESULT OUT OF RANGE REFERENCE UNITS LAB IGG(LOINC) 700 - 1600 mg/dL IGG 1280 Result Comment: MONOCLONAL PROTEINS MAY CAUSE FALSELY LOW RESULTS IN THIS ASSAY. SERUM PROTEIN ELECTROPHORESIS SHOULD BE DONE THE FIRST TEST TO EVALUATE MONOCLONAL GAMMOPATHY. LAB IGA(LOINC) 70 - 400 mg/dL IGA 199 Result Comment: MONOCLONAL PROTEINS MAY CAUSE FALSELY LOW RESULTS IN THIS ASSAY. SERUM PROTEIN ELECTROPHORESIS SHOULD BE DONE THE FIRST TEST TO EVALUATE MONOCLONAL GAMMOPATHY. LAB IGM(LOINC) 40 - 230 mg/dL High IGM 322 Result Comment: MONOCLONAL PROTEINS MAY CAUSE FALSELY LOW RESULTS IN THIS ASSAY. SERUM PROTEIN ELECTROPHORESIS SHOULD BE DONE THE FIRST TEST TO EVALUATE MONOCLONAL GAMMOPATHY. Performed By: #### IGS #### [facility] [address] [place] [address] IGG SUBCLASSES Collected: 08/24/2017 Status: F Source: [facility] [address] [place] [address] REPOSITORY TYPE CODE TESTS RESULT OUT OF RANGE REFERENCE UNITS LAB IGG(LOINC) 700 - 1600 mg/dL IGG 1280 Result Comment: MONOCLONAL PROTEINS MAY CAUSE FALSELY LOW RESULTS IN THIS ASSAY. SERUM PROTEIN ELECTROPHORESIS SHOULD BE DONE THE FIRST TEST TO EVALUATE MONOCLONAL GAMMOPATHY. LAB IGG1(LOINC) 490 - 1140 mg/dL IGG SUBCLASS 1 863 LAB IGG2(LOINC) 150 - 640 mg/dL IGG SUBCLASS 2 373 LAB IGG3(LOINC) 11 - 85 mg/dL IGG SUBCLASS 3 62 LAB IGGG4(LOINC) 3 - 200 mg/dL IGG SUBCLASS 4 199 Result Comment: DUE TO INHERENT IMPRECISION OF METHODS, THE SUM OF COMPONENTS MAY DIFFER FROM TOTAL IGG BY MUCH 20%. Performed By: #### IGSU2 #### [facility] [address] [place] [id number] MISCELLANEOUS Collected: 08/24/2017 Status: CANCELLED Source: [facility] TEST-SOARIAN 11:39 HOSPITALS REPOSITORY Order Comment: TEST MISCELLANEOUS TEST- SOARIAN WAS CANCELLED, 08/25/2017 00:03 EBAY RESELLER ERROR.TEST IS ORDERABLE PATH REVIEW 1. TYPE CODE TESTS RESULT OUT OF REFERENCE UNITS RANGE LAB MISCT(LOIN C) NAME OF SEND OUT TEST Canceled LAB MISC(LOINC ) MISCELLANEOUS Canceled Performed By: #### MISCS #### GENERAL SENDOUT CBC Collected: 08/24/2017 Status: F Source: [facility] 11:39 [facility] REPOSITORY TYPE CODE TESTS RESULT OUT OF REFERENCE UNITS RANGE LAB WBCR(LOINC 4.4 - 11.3 x10E9/L ) WBC 10.8 LAB NRBC(LOINC 0.0-0.0 /100 WBC ) NUCLEATED RBC 0.0 LAB RBCCT(LOIN 4.00 - 5.20 x10E12/L C) Low RBC 2.98 LAB HGB(LOINC) 12.0 - 16.0 g/dL Low HGB 9.0 LAB HCT(LOINC) 36.0 - 46.0 % Low HCT 27.9 LAB MCV(LOINC) 80 - 100 fL MCV 94 LAB MCHC2(LOIN 32.0 - 36.0 g/dL C) MCHC 32.3 LAB PLTCT(LOIN 150 - 450 x10E9/L C) PLT 198 LAB RDWCV(LOIN 11.5 - 14.5 % C) RDW-CV 13.3 Performed By: #### CBC #### [facility] [address] [place] [address] LACTATE Collected: 08/24/2017 Status: F Source: [place] 11:39 [facility] REPOSITORY TYPE CODE TESTS RESULT OUT OF REFERENCE UNITS RANGE LAB LACT(LOINC) 0.4 - 2.0 mmol/L LACTATE 1.3 Result Comment: Venipuncture immediately after or during the administration of Metamizole may lead to falsely low results. Testing should be performed immediately prior to Metamizole dosing. Performed By: #### LACT #### [facility] [address] [address] [facility]. [place] [id number] COAGULATION SCREEN Collected: 08/24/2017 Status: F Source: [address] REPOSITORY TYPE CODE TESTS RESULT OUT OF REFERENCE UNITS RANGE LAB PT(LOINC) 9.8 - 12.7 sec PROTHROMBIN TIME 11.4 LAB INR(LOINC) 0.9 - 1.1 PT, INR 1.0 LAB APTT(LOINC 25 - 36 sec ) Low APTT 24 Result Comment: THE APTT IS NO LONGER USED FOR MONITORING UNFRACTIONATED HEPARIN THERAPY. FOR MONITORING HEPARIN THERAPY, USE THE HEPARIN ASSAY. Performed By: #### COAGS #### [place] [address] C-REACTIVE PROTEIN Collected: 08/24/2017 Status: F Source: [address] REPOSITORY TYPE CODE TESTS RESULT OUT OF RANGE REFERENCE UNITS LAB CRP(LOINC) mg/dL Abnormal C-REACTIVE 1.52 PROTEIN Result Comment: REF VALUE < 1.00 Performed By: #### CRP #### [facility] [address] [facility], [facility]. [place] [id number] HEPATIC FUNCTION Collected: 08/24/2017 Status: F Source: [address] REPOSITORY TYPE CODE TESTS RESULT OUT OF REFERENCE UNITS RANGE LAB ALB(LOINC) 3.4 - 5.0 g/dL ALBUMIN 3.7 LAB TBILI(LOIN 0.0 - 1.2 mg/dL C) BILIRUBIN,TOTAL 0.3 LAB DBILI(LOIN 0.0 - 0.3 mg/dL C) BILIRUBIN,DIRECT 0.0 LAB AP(LOINC) 33 - 110 U/L ALKALINE PHOSPHATASE 59 LAB ALT(LOINC) 7 - 45 U/L ALT 37 Result Comment: Patients treated with Sulfasalazine may generate falsely decreased results for ALT. LAB AST(LOINC) 9 - 39 U/L AST 24 LAB TP(LOINC) 6.4 - 8.2 g/dL TOTAL PROTEIN 6.9 Performed By: #### HEPFP #### [facility] [address] [place] [address] RENAL FUNCTION PANEL Collected: 08/24/2017 Status: F Source: [facility] 11:39 [facility] REPOSITORY TYPE CODE TESTS RESULT OUT OF REFERENCE UNITS RANGE LAB GLU(LOINC) 74 - 99 mg/dL GLUCOSE 82 LAB SOD(LOINC) 136 - 145 mmol/L SODIUM 144 LAB K(LOINC) 3.5 - 5.3 mmol/L POTASSIUM 3.8 LAB CHLOR(LOIN 98 - 107 mmol/L C) CHLORIDE 105 LAB BIC(LOINC) 21 - 32 mmol/L BICARBONATE 23 LAB ANGAP(LOIN 10 - 20 mmol/L C) ANION GAP 20 LAB UREA(LOINC 6 - 23 mg/dL ) UREA NITROGEN 12 LAB CREA(LOINC 0.50 - 1.05 mg/dL ) CREATININE 1.01 LAB GFRFN(LOIN >60 mL/min/1.7 C) 3m2 GFR-NON AM. >60 LAB GFRAA(LOIN >60 mL/min/1.7 C) 3m2 GFR- AM. >60 Result Comment: CALCULATIONS OF ESTIMATED GFR ARE PERFORMED USING THE MDRD STUDY EQUATION FOR THE IDMS-TRACEABLE CREATININE METHODS. CLIN CHEM 2007;53:766-72 LAB CA(LOINC) 8.6 - 10.6 mg/dL CALCIUM 9.2 LAB PHOS(LOINC) 2.5 - 4.9 mg/dL PHOSPHORUS 4.3 Result Comment: The performance characteristics of phosphorus testing in heparinized plasma have been validated by the individual laboratory site where testing is performed. Testing on heparinized plasma is not approved by the FDA; however, such approval is not necessary. LAB ALB(LOINC) 3.4 - 5.0 g/dL ALBUMIN 3.7 Performed By: #### RENAL #### [facility] [address] [place] [address] SEDIMENTATION RATE, Collected: 08/24/2017 Status: F Source: [facility] 11:39 [facility] REPOSITORY TYPE CODE TESTS RESULT OUT OF REFERENCE UNITS RANGE LAB ESRWS(LOIN 0 - 20 mm/h C) SEDIMENTATION RATE, ERYTHROCYTE 2 Performed By: #### ESRWS #### [facility] [address] [place] [address] IGE Collected: 08/24/2017 Status: F Source: [place] 11:39 [facility] REPOSITORY TYPE CODE TESTS RESULT OUT OF REFERENCE UNITS RANGE LAB IGE(LOINC) 0 - 150 IU/mL IGE 124 LAB SOURCE(LOIN C) Lab Specimen Source Performed By: #### IGE #### [facility] [address] [place] [address] HCV RNA BY PCR Collected: 08/24/2017 Status: F Source: [place] [VIRAL LOAD] 11:39 [facility] REPOSITORY TYPE CODE TESTS RESULT OUT OF RANGE REFERENCE UNITS LAB HCVPV(LOIN IU/mL C) Abnormal HCV [id number] RNA, PCR Result Comment: REF VALUE NEGATIVE LAB HCVLO(LOINC) log10 IU/mL Abnormal HCV RNA,PCR, LOG 6.38 Result Comment: HCV RNA BY PCR (VIRAL LOAD) IS PERFORMED USING THE COSMO EMILIA AMPLIPREP/EMILIA TAQMAN HCV TEST. THIS IS A TEST FOR THE QUANTITATION OF HEPATITIS C VIRAL RNA IN HUMAN PLASMA OR SERUM USING THE AMPLIPREP INSTRUMENT FOR AUTOMATED SPECIMEN PROCESSING AND THE TAQMAN ANALYZER FOR AUTOMATED AMPLIFICATION AND DETECTION. SPECIMENS CONTAINING HCV GENOTYPES 1-6 HAVE BEEN VALIDATED FOR QUANTITATION IN THE ASSAY. THE TEST CAN QUANTITATE 15 TO 100,000,000 IU/ML OF HCV RNA. THIS TEST IS STANDARDIZED AGAINST THE FIRST WHO INTERNATIONAL STANDARD FOR HEPATITIS C VIRUS RNA FOR NUCLEIC ACID AMPLIFICATION TECHNOLOGY ASSAYS (NIBSC CODE 96/790). THE TEST IS APPROVED BY THE [place] [employer] AND DRUG [employer], AND IS INTENDED FOR USE IN CONJUNCTION WITH CLINICAL PRESENTATION AND OTHER LABORATORY MARKERS OF DISEASE PROGRESS FOR THE CLINICAL MANAGEMENT OF HCV INFECTED PATIENTS. THIS TEST IS INTENDED FOR USE AN AID IN THE MANAGEMENT OF HCV-INFECTED INDIVIDUALS UNDERGOING ANTI-VIRAL THERAPY. THE ASSAY MEASURES HCV RNA LEVELS AT BASELINE AND DURING TREATMENT AND CAN BE UTILIZED TO PREDICT SUSTAINED AND NON-SUSTAINED VIROLOGICAL RESPONSE TO HCV THERAPY. THE RESULTS FROM THIS TEST MUST BE INTERPRETED WITHIN THE CONTEXT OF ALL RELEVANT CLINICAL AND LABORATORY FINDINGS. THE TEST IS NOT INTENDED FOR USE A SCREENING TEST FOR THE PRESENCE OF HCV IN BLOOD OR BLOOD PRODUCTS OR A DIAGNOSTIC TEST TO CONFIRM THE PRESENCE OF HCV INFECTION. THE PERFORMANCE CHARACTERISTICS OF THIS TEST HAVE BEEN VERIFIED BY THE MOLECULAR DIAGNOSTICS LABORATORY, DEPARTMENT OF PATHOLOGY AT [facility]. LAB SOURCE(LOINC) Lab Specimen Source Performed By: #### HCVPR #### [facility] [address] [place] [address] RUT PANEL Collected: 08/24/2017 Status: F Source: [place] 11:39 [facility] REPOSITORY TYPE CODE TESTS RESULT OUT OF REFERENCE UNITS RANGE LAB RUT(LOINC) NEGATIVE ANTINUCLEAR ANTIBODY NEGATIVE LAB ASM(LOINC) AI ANTI-SM <0.2 Result Comment: REF VALUES < 1.0 = NEGATIVE >=1.0 = POSITIVE LAB A-AWNING ASSEMBLER(LOINC) AI ANTI-AWNING ASSEMBLER <0.2 Result Comment: REF VALUES < 1.0 = NEGATIVE >=1.0 = POSITIVE LAB ASMRN(LOINC) AI ANTI-SM/AWNING ASSEMBLER <0.2 Result Comment: REF VALUES < 1.0 = NEGATIVE >=1.0 = POSITIVE LAB A-SSA(LOINC) AI ANTI-SSA <0.2 Result Comment: REF VALUES < 1.0 = NEGATIVE >=1.0 = POSITIVE LAB A-SSB(LOINC) AI ANTI-SSB <0.2 Result Comment: REF VALUES < 1.0 = NEGATIVE >=1.0 = POSITIVE LAB A-SCL(LOINC) AI ANTI-SCL-70 <0.2 Result Comment: REF VALUES < 1.0 = NEGATIVE >=1.0 = POSITIVE LAB A-JO1(LOINC) AI ANTI-LAUREN-1 <0.2 Result Comment: REF VALUES < 1.0 = NEGATIVE >=1.0 = POSITIVE LAB A-CHR(LOINC) AI ANTI-CHROMATIN <0.2 Result Comment: REF VALUES < 1.0 = NEGATIVE >=1.0 = POSITIVE LAB A-JESSE(LOINC) AI ANTI-CENTROMERE <0.2 Result Comment: REF VALUES < 1.0 = NEGATIVE >=1.0 = POSITIVE LAB RIBPP(LOINC) AI ANTI-RIBOSOMAL P <0.2 Result Comment: REF VALUES < 1.0 = NEGATIVE >=1.0 = POSITIVE LAB DNADS(LOINC) IU/mL ANTI-DNA [DS] <1.0 Result Comment: REF VALUES NEGATIVE: <= 4 IU/ML EQUIVOCAL: 5- 9 IU/ML POSITIVE: >=10 IU/ML Performed By: #### ANAP2 #### [facility] [address] [place] [address] Observed: 08/24/2017 Status: F Source: [place] BLOOD CULTURE, 11:39 PM [facility] REPOSITORY BACTERIAL POS BLDC Called- RB to DR.IVRAHIM BESS, 08/26/2017 08:49 POS BLDC Called- RB to DR.IVRAHIM BESS, 08/26/2017 08:49 PATIENT: VIELKA IBARRA LOCATION: TT08 T80 BILL#: [id number] : 78 AGE: SEX: F ORDERED BY: HARDY HARDEN SOURCE: Blood COLLECTED: 08/24/17 23:39 ANTIBIOTICS AT [place].: RECEIVED : 08/25/17 02:00 SITE: PERIPHERAL R E S U L T S BLOOD CULTURE, BACTERIAL FINAL 08/27/17 07:08 No Growth at 1 days ISOLATE1 : Coagulase negative staphylococcus ANAEROBIC VIAL POSITIVE Isolation of common skin bacteria from a single blood culture usually indicates contamination from the venipuncture. Organism CNStaph Antibiotic KB INTRP Oxacillin S S=SUSCEPTIBLE I=INTERMEDIATE R=RESISTANT SDD=SUSCEPTIBLE DOSE DEPENDENT NS=NONSUSCEPTIBLE X=REPORTED IN ERROR Performed By: #### BLDC #### [facility] [address] [place] [address] ANCA WITH REFLEX TO Collected: 08/24/2017 Status: F Source: [place] MPO, PR3 11:39 PM [facility] REPOSITORY TYPE CODE TESTS RESULT OUT OF REFERENCE UNITS RANGE LAB ANCAR(LOINC <1:20 ) ANCA WITH <1:20 REFLEX TO MPO, PR3 Result Comment: The ANCA IFA is <1:20; therefore, no further testing will be performed. INTERPRETIVE INFORMATION: Anti-Neutrophil Cyto Ab, IgG Neutrophil Cytoplasmic Antibodies (C-ANCA = granular cytoplasmic staining, P-ANCA = perinuclear staining) are found in the serum of over 90 percent of patients with certain necrotizing systemic vasculitides, and usually in less than 5 percent of patients with collagen vascular disease or arthritis. Performed by [facility], [address] [place] [address] [email or web address], Misael Mitchell MD - Lab. Director Performed By: #### ANCAR #### [facility] [address] [facility] [place] [address] CBC DIFFERENTIAL PATH Collected: 08/24/2017 Status: CANCELLED Source: [place] REVIEW 11:39 HOSPITALS REPOSITORY Order Comment: TEST CBC DIFFERENTIAL PATH REVIEW WAS CANCELLED, 08/28/2017 07:03 Sample sent to [facility]. please reorder if necessary.. TYPE CODE TESTS RESULT OUT OF REFERENCE UNITS RANGE LAB PREV1(LOINC ) PATH Canceled REV-DIFFEREN TIAL Result Comment: By her/his signature above, the Pathologist listed as making the final interpretation certifies that she/he has personally reviewed this case. Performed By: #### PR1 #### [facility] [address] [place] [address] HISTORY AND PHYSICAL Observed: 08/24/2017 Status: COMPLETED Source: [place] 10:25 [facility] REPOSITORY History of Present Illness: /Lactating: ? Are You no (1) ? Are You Currently unable to answer (1) Admission Reason: Abscesses HPI: Ms. Ibarra is a 37-year-old woman transferred here from [facility] for the management of abscesses. History is obtained from the patient, the records and her partner who is present with her. She has a history of recurrent abscesses on her arms, axillary and sometimes her feet, over the last year or so. She had pain and swelling in her face a couple of weeks ago, and was given a course of oral doxycycline for it. The original symptoms improved. The day after she completed the antibiotics, she noticed redness, warmth, pain and swelling of her left forearm, restricting movement of her left wrist. A couple of days ago, she felt feverish and also noticed similar symptoms over the right dorsal hand, with a purulent abscess. She presented to the [facility] ED where her vitals were stable. Labs were significant for a neutrophilic leukocytosis of 12,000 and lactate of 3, with a mild ZULY likely secondary to dehydration. She was also found to have a UTI. A Utox was negative. She was started on broad-spectrum antibiotics and transferred here for further management since she needed a hand surgery consultation. In the ED here, she was seen by hand surgery and underwent incision and drainage of her right upper extremity abscess. Cultures were sent from the pus. Dermatology was consulted due to concern for pyoderma gangrenosum by the ED, but the lesions were more consistent with abscesses and they were suspicious for IV drug use. The patient has been on Suboxone in the past for unclear indications, but denies a history of drug abuse. She does have a history of hepatitis C which she thinks she acquired several years ago while getting a tattoo. Review of symptoms is also significant for weight loss and episodic vomiting over the last many months. She has a history of Crohn's disease with a reported prior colonoscopy and biopsy. She has a history of ovarian cancer or which she underwent surgery, radiation and chemotherapy. She was told that she is cancer free 3 years ago, and has not followed up with anyone since then. Past medical history: Crohn's per patient, ovarian cancer, hep C. Suboxone treatment for unclear reasons. She did not have recurrent infections as a child. Social history: Smokes half a pack a day. Denies drug abuse. Family history: Crohn's disease and lupus in the family. Allergies: ? No Known Allergies: Objective: Objective Information: T P R BP SpO2 Value 37.5 81 16 131/84 100% Date/Time 08/24 16:08 08/24 21:15 08/24 21:15 08/24 21:15 08/24 21:15 Range (37.5C - 37.5C ) (72 - 81 ) (16 - 16 ) (129 - 131 )/ (83 - 88 ) (100% - 100% ) Highest temp of 37.5 C was recorded at 08/24 16:08 Physical Exam: Constitutional: No active distress Eyes: No pallor or icterus ENMT: Mucous membranes moist Head/Neck: Cervical lymphadenopathy present Respiratory/Thorax: Clear to auscultation Cardiovascular: Regular rate and rhythm Gastrointestinal: Soft, nontender Extremities: No pedal edema Neurological: No neurovascular deficits Skin: Small puncture-like bazzi / ulcers on both ventral forearms as well as on the fingers Right upper extremity is currently in a wrapping Left forearm abscess with mild tenderness to palpation Medications: Medications: Continuous Medications No continuous medications are active Scheduled Medications 1. Piperacillin - Tazobactam 3.375 gram/Iso-osmotic 50 mL Premix IVPB: 50 mL IntraVenous Piggyback Every 6 Hours 2. Vancomycin 1 gram IVPB/ Premixed Soln 200 mL: 200 mL IntraVenous Piggyback Every 12 Hours PRN Medications 1. oxyCODONE Immediate Release: 5 mg Oral Every 4 Hours Assessment and Plan: Assessment: Ms. Ibarra is a 37-year-old woman with hepatitis C, prior ovarian cancer, prior Suboxone treatment for unclear reasons, and reported Crohn's disease transferred here from [facility] for the management of abscesses, which have since been drained by hand surgery. Plan: Abscesses - Likely infectious, suspicion for surreptitious IV drug use based on history of Suboxone treatment and puncture-like bazzi on forearms (although she has been to the ED recently where she has had IVs and blood draws) - Remove right upper extremity wrapping tomorrow, and start soap water immersions; keep arm elevated - Follow up cultures from the wound and her blood here and at [facility] - Continue broad-spectrum antibiotics for now, can narrow when cultures speciate (will also need coverage for UTI) - ESR, CRP, RUT, ANCA, immunoglobulin levels, HIV, peripheral smear review to look for other possible etiologies - Oral oxycodone for pain control, will avoid Tylenol so as not to mask fevers Reported history of Crohn's disease, hep C, vomiting and weight loss - HIV serology, hep C viral load - Attempt to obtain prior colonoscopy and biopsy reports - Low suspicion for cancer recurrence at this time Miscellaneous - Received a bolus of normal saline in the ED, trend renal functions - Regular diet - SCDs, ANJELICA - Full code Signatures/Attestation/Certification: Attending Attestation I saw and evaluated the patient. I personally obtained the hankins and critical portions of the history and physical exam or was physically present for hankins and critical portions performed by the resident/fellow. I reviewed the resident/fellow?s documentation and discussed the patient with the resident/fellow. I agree with the resident/fellow?s medical decision making as documented in the resident/fellow?s note with the exception/addition of the following: I personally evaluated the patient (as noted in the above attestation) on 25-Aug-2017 Comments/ Additional Findings 14 point ROS negative unless stated in HPI Attending Provider ? Inpatient Certification Statement I certify this patient?s need for inpatient care based on the above documentation including; the order to admit as inpatient, the anticipated length of stay, diagnosis, problem list and plan of care, and discharge plan. Electronic Signatures: Annika Francisco) (Signed 26-Aug-2017 14:00) Authored: Signatures/Attestation/Certification Hardy Bolton (Resident)) (Signed 24-Aug-2017 22:46) Authored: History of Present Illness, Comorbidities, Allergies, Objective, Assessment and Plan, Signatures/Attestation/Certification Last Updated: 26-Aug-2017 14:00 by Annika Francisco) References: 1. Data Referenced From Provider Note - ED 08/24/2017 07:55 PM FLUID Observed: Status: CANCELLED Source: [facility] CULTURE/SM.,BACTERIAL 08/24/2017 8:41 PM HOSPITALS REPOSITORY TEST FLUID CULTURE/SM.,BACTERIAL WAS CANCELLED, 08/24/2017 21:37 EBAY RESELLER ERROR. NOT FLUID, SEE [id number] 08/24/2017 21:37. PATIENT: VIELKA IBARRA [facility]ATION: [facility] BILL#: [id number] : 78 AGE: SEX: F ORDERED BY: CAROLINA MURILLO SOURCE: FLUID COLLECTED: 08/24/17 20:41 ANTIBIOTICS AT [place].: RECEIVED : SITE: R hand R E S U L T S GRAM STAIN CANCELLED 08/24/17 21:37 FLUID CULTURE/SM.,BACTERIAL CANCELLED 08/24/17 21:37 Performed By: #### FLUID #### [facility] [address] [place] [address] Observed: 08/24/2017 Status: F Source: [facility] 8:41 PM [facility] REPOSITORY CULT./SM.BACT. [id number] PATIENT: VIELKA IBARRA LOCATION: [place] [address] BILL#: [id number] : [birth year] AGE: SEX: F ORDERED BY: CAROLINA MURILLO SOURCE: MISC COLLECTED: 08/24/17 20:41 ANTIBIOTICS AT [place].: RECEIVED : 08/24/17 21:36 SITE: R hand R E S U L T S GRAM STAIN FINAL 08/24/17 22:51 4+ GRANULOCYTES. 1+ GRAM (+) [facility] CULT./SM.BACT. FINAL 08/26/17 14:05 ISOLATE1 : Staphylococcus aureus 3+ METHICILLIN(OXACILLIN)RESISTANT METHICILLIN(OXACILLIN)RESISTANT STAPHYLOCOCCI ARE RESISTANT TO ALL CURRENTLY AVAILABLE PENICILLINS, BETA-LACTAM/BETA-LACTAMASE INHIBITOR COMBINATIONS (INCLUDING AMPICILLIN/SULBACTAM, AMOXICILLIN/CLAVULANATE AND PIPERACILLIN/TAZOBACTAM),CARBAPENEMS AND CEPHALOSPORINS(EXCEPT CEFTAROLINE). Organism S aureus Antibiotic BP INTRP Ampicillin R Clindamycin R Ciprofloxacin S Erythromycin R Gentamicin S Levofloxacin S Oxacillin R Penicillin R Trimeth/Sulfa S Tetracycline S Vancomycin S S=SUSCEPTIBLE I=INTERMEDIATE R=RESISTANT SDD=SUSCEPTIBLE DOSE DEPENDENT NS=NONSUSCEPTIBLE X=REPORTED IN ERROR Performed By: #### MISCC #### [facility] [address] [place] [address] Observed: 08/24/2017 Status: F Source: [place] FUNGAL CULTURE/, [facility] 8:41 PM HOSPITALS REPOSITORY PATIENT: VIELKA IBARRA LOCATION: [place] [address] BILL#: [id number] : [birth year] AGE: SEX: F ORDERED BY: CAROLINA MURILLO SOURCE: SKIN COLLECTED: 08/24/17 20:41 ANTIBIOTICS AT [place].: RECEIVED : 08/24/17 21:37 SITE: right hand R E S U L T S FUNGAL SMEAR FINAL 08/25/17 13:09 FLUORESCENT FUNGAL STAIN: NEGATIVE FUNGAL CULTURE/, MISC FINAL 09/08/17 10:27 NO FUNGI ISOLATED. Performed By: #### FUNCS #### [facility] [address] [place] [address] CONSULT-PLASTIC SURGERY Observed: 08/24/2017 Status: COMPLETED Source: [place] 8:00 PM [facility]OSPITALS REPOSITORY Service: Service: Plastic Surgery Consult: Consult requested by (Attending Name): Dr. Flanagan Reason: R dorsal hand abscess History of Present Illness: Admission Reason: R dorsal hand abscess HPI: HPI: 37yo female with a history of crohn's (not on immunosuppression currently, last on sulfasalazine 6 mos ago), hcv (pt reports 2/2 tattoo), [place] cancer s/p hysterectomy who presents with a R dorsal hand abscess. pt has a 2yr history of multiple lesions at various anatomical sites (face, axilla, bilateral forearms). She denies IVDU but does have a h/o of suboxone per chart review. Derm consulted and saw in ED, do not believe that the lesions are due to pyoderma gangrenosum and recommend drainage. ROS: See Above PMH: See Above SOCIAL HX: +tobacco, denies etoh, denies ivdu ALLERGIES: See EMR PE: GENERAL: Resting Comfortably, NAD EYES: PERRLA, No conjunctival injection HEAD: NCAT NOSE: No rhinorrhea or bleeding MOUTH: No erythema or lesions RESP: CTAB, no wheezes, rales or rhonchi CARDIO: +S1, +S2 ABD: Soft, NT, ND, no rebound or guarding SKIN: No rashes or lesions NEURO: No gross neurologic deficits EXTREMITIES: 5x5cm area of erythema to L volar forearm without edema, some overlying skin peeling indicative of resolving edema. 4x5cm area of fluctuance with associated cellulitis to R dorsal hand. sensation intact to median, ulnar, radial n distributions. ROM limited by pain and edema. palpable radial and ulnar pulses A/P: -abscess drained at bedside (see following procedure note) -admit to medicine for IV abx, monitoring of wound -elevation of R hand above heart at all times -f/u dermatology recommendations -remove packing tomorrow, begin warm soapy soaks 15 mins TID -f/u wound culture Discussed with Dr. Soraya Murillo MD PGY-1, Plastic Surgery pager: [phone] PROCEDURE: -patient identified by name and -verbal consent obtained -local infiltration with 12cc 1% lidocaine -prepped and draped in sterile fashion -11 blade used to create 3cm incision through dermis over most prominent aspect of fluid collection -pus expressed from wound, culture collected -dissection of subcutaneous loculations -irrigated with 1L NS -packed with sterile packing strips -wrapped with kerlix Pt tolerated procedure fair. Allergies: ? No Known Allergies: Signature/Cosignature/Attestation: Attending Attestation I saw and evaluated the patient. I personally obtained the hankins and critical portions of the history and physical exam or was physically present for hankins and critical portions performed by the resident/fellow. I reviewed the resident/fellow?s documentation and discussed the patient with the resident/fellow. I agree with the resident/fellow?s medical decision making as documented in the resident/fellow?s note with the exception/addition of the following: I personally evaluated the patient (as noted in the above attestation) on 25-Aug-2017 Comments/ Additional Findings Ms. Ibarra reports improvement since drainage yesterday, although she still has hand and finger swelling. Would recommend Xrays to evaluate wrist joints and evidence of foreign bodies. At this point, continue soaks and range of motion. She does not have clear evidence of a septic and tapping the wrist may seed the joint given the presence of a superficial abscess. Electronic Signatures: Genet Lira) (Signed 25-Aug-2017 12:48) Authored: Signature/Cosignature/Attestation Co-Signer: History of Present Illness, Signature/Cosignature/Attestation Carolina Murillo (Resident)) (Signed 24-Aug-2017 20:30) Authored: Service, History of Present Illness, Allergies, Signature/Cosignature/Attestation Last Updated: 25-Aug-2017 12:48 by Genet Lira) PROVIDER NOTE - ED Observed: 08/24/2017 Status: COMPLETED Source: [place] 7:55 PM HOSPITALS REPOSITORY Time Seen: ? Time [id number] 16:51 ED Notes: ? 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 Patient reports history of multiple skin abscesses since october 2016, patient reports swelling, erythema, pain on left anterior forearm since 1 week, which is getting better, she developed similar symptoms on her right posterior wrist 5 days ago associated with swelling for her right hand, difficulty moving wrist joint and fingers, which is getting worse. Patient reports fever, nausea, burning micturition since 4 days. Patient denies cough, SOB, chest pain, palpitations, abdomen pain, diarrhea, sore throat, ear eye or nose discharge. Patient was given zosyn, morphine at [facility], transferred to [facility] via physician ambulance with Vancomycin infusion, patient reported nausea in the ambulance and was given 4MG Zofran by EMS. PMH:Chrone's disease, Hep C, Ovarian and cervical cancer(not on treatment) s/p hysterectomy PSH:Hystrectomy for endometrial cancer ALL:NKDA SOC:Smokes ? pack per day since 20 years, denies alcohol denies recreational drug use FAM:negative Review of Systems Unless otherwise stated in this report the patient's positive and negative responses for review of systems for constitutional, eyes, ENT, cardiovascular, respiratory, gastrointestinal, neurological, genitourinary, musculoskeletal, and integument systems and related systems to the presenting problem are either as stated in the HPI or were not pertinent or were negative for the symptoms and/or complaints related to the presenting medical problem. Physical Exam GENERAL APPEARANCE: The patient is alert and oriented and in no acute distress. HEENT: Head is normocephalic. No evidence of trauma. EYES: PERRL. EOMI. Conjunctivae pink with no scleral jaundice. NECK: Trachea is midline. No masses appreciated. LUNGS: Clear to auscultation in all gan. No appreciable wheezes, rhonchi or rales HEART: RRR. No appreciable murmurs, gallops or rubs. ABDOMEN: Soft. Non tender. No distention. CVA tenderness negative MUSCULOSKELETAL: Local Right dorsal wrist swelling, erythema, tenderness 6X6 cm,no fluctuance, right hand swollen. Patient reports pain on ROM of wrists and fingers of right hand in flex/ext. Sensation present and equal bilaterally. Left ventral forearm swelling, erythema, mild fluctuance 5X5 cm No swelling or effusion in any other joints. No peripheral edema. SKIN: Moist, warm, color normal for ethnicity. NEUROLOGICAL: Pt moves all extremities spontaneously. Pt is A&O MDM The patient was seen and examined. Cellulitis, Abscess, IVDU and other conditions associated with localized swelling, erythema, pain were considered in a 37 y/o w/ a history of Chrone's disease, Hep C. USG , dermatology consult, hand surgery consult were undertaken with these conditions in mind. Patient's labs were reviewed from [facility]. She was found to have a mild elevation of her white count at approximately 12. Her hemoglobin was stable. She had a mild elevation of her lactic acid at 3.0. Her kidney function and electrolytes were unremarkable. The patient was given a dose of fentanyl in the ED. The patient expressed improvement of her discomfort with pain medication administration. The patient was only given Zosyn and vancomycin at [facility] ED. Dermatology was kind enough Evaluate the Patient. After Thorough history and physical they do not believe this to be any form of autoimmune syndrome. They believe that the possible cause for her multiple abscesses his IV drug abuse. After further evaluation. I checked the patient's [facility] report. Evidently she was on Suboxone but did not mention this during our initial H&P. Also of concern the patient's last Suboxone prescription was in November and she began getting abscesses in October. Unfortunately, the patient received multiple opiates from [facility] and that the ED and as such her urine drug screen. The patient was signed out to Dr. Baer at 7pm with the plan for admission and follow up on hand surgery recs. Triage Vital Signs: ? Triage Information Most recent Vital Sign Value Date Temp (F): 99.5 08-24-2017 16:08 Temp (C): 37.5 08-24-2017 16:08 Heart Rate (beats/min): 78 08-24-2017 16:08 Respirations (breaths/min): 16 08-24-2017 16:08 SpO2 (%): 100 08-24-2017 16:08 BP Systolic (mm Hg): 130 08-24-2017 16:08 BP Diastolic (mm Hg): 83 08-24-2017 16:08 History of Present Illness: /Lactating: ? Are You no (1) ? Are You Currently Breastfeedingunable to answer (1) This 37 year old Female presents with complaint(s) of abscess(1)Patient transferred [facility] for abscesses to arms bilaterally. Patient received zosyn prior to arrival and arrived to ED with vancomycin infusing. Patient complained of nausea en route to [facility] and received 4 mg zofran IVP by EMS at 15:42.(1) Allergy, Intolerance, Adverse Event: Allergies: ? No Known Allergies: Active Outpatient Medication, Review/Add Medications: * Outpatient Medication Status not yet specified Smoking Status: current every day smoker Alcohol Use: denies Drug Use: denies HISTORY ATTESTATION: ? AttestationI have reviewed and confirmed nurse's/medic's notes for patient's medications, allergies, medical history, and surgical history Diagnoses/Visit Problems: ? Abscess of skin: CONDITION ON DISPO: ? Condition on Dispositionimproved MEDICATION RECONCILIATION/DISCHARGE MEDS: * Outpatient Medication Status not yet specified Attestation: CRITICAL CARE: ? Is This a Critically Ill Patientno Co-Sign/Attestation: Attestation: I saw and evaluated the patient. I personally obtained the hankins and critical portions of the history and physical exam or was physically present for hankins and critical portions performed by the resident/fellow. I reviewed the resident/fellow?s documentation and discussed the patient with the resident/fellow. I agree with the resident/fellow?s medical decision making as documented in the resident?s note Electronic Signatures for Addendum Section: Abraham Baer (Resident)) (Signed Addendum 24-Aug-2017 22:52) Patient signed out to me by previous ED team at 7 PM pending dermatology and plastics recommendations with likely admission to medicine. Dermatology recommends medicine admission for multiple episodes workup with plastics recommendation of admission medicine for IV antibiotics and monitoring of wound elevation of hand above heart at all times with removal of abscess packing tomorrow and she warm soapy soaks 3 times a day with wound cultures. Patient is administered 1 L normal saline for elevated lactate of 3 from outside hospital. Patient is admitted to medicine for further management. Abraham Baer MD Emergency Medicine [facility] Electronic Signatures: Andrew Flanagan) (Signed 28-Aug-2017 02:45) Authored: Attestation Co-Signer: Time Seen / ED Notes, Triage Vital Signs, History of Present Illness, Patient History, History Attestation, ED Disposition (REQUIRED), Attestation Prateek Thomas (Resident)) (Signed 24-Aug-2017 20:11) Authored: Time Seen / ED Notes, Triage Vital Signs, History of Present Illness, Patient History, History Attestation, ED Disposition (REQUIRED), Attestation Last Updated: 28-Aug-2017 02:45 by Andrew Flanagan) References: 1. Data Referenced From Triage - ED 08/24/2017 4:08 PM CONSULT-DERMATOLOGY Observed: Status: COMPLETED Source: [facility] 08/24/2017 7:30 PM HOSPITALS REPOSITORY Service: Service: Dermatology Consult: Consult requested by (Attending Name): raven Reason: please evaluate for PG vs abscess History of Present Illness: HPI: S: 37F hx of CD, Ovarian cancer (s/p chemorads, hysterectomy) who presented to the ED with swollen pink skin lesions on her arms as a transfer from [facility] for concerns of abscesses. Two weeks ago she had facial swelling (L>R) that was deemed to possibly be abscesses that warranted doxy BID therapy from the [facility] ED, per the patient. She states that she finished her course last Friday and noticed L arm swelling on Friday and R arm swelling on Friday. The swelling and pain intensified and became increasingly worrisome to her. She had leftover percocets in her purse (prescribed for pain in the past) but did not try any topical therapies. She denies fevers, night sweats or chills, but endorses back pain and hip pain. She states that the inability to move her R hand and the intense pain of her current lesions drove her to come to the ED. She was transferred here with [facility] for broad spectrum coverage. ROS: a 14pt ROS was performed with notable findings indicated above PMH: HCV (seen by Dr. Jax Bishop? At [facility], per patient. Cannot undergo treatment due to insurance coverage issues. Crohns diagnosed in 2006, not on current immunosuppression. Ovarian CA dx in 2006 s/p chemorads and hysterectomy, noted to be in remission in 2008. ALL: NKA MEDS: MVI FH: paternal uncle with lupus SH: denies alcohol and illicits. Regular tobacco user. Lives with boyfriend and 14yo daughter. Allergies: ? No Known Allergies: Objective: Objective Information: O: GEN NAD VSS Skin: Her upper extremities, face, neck, anterior chest and abdomen, LE were examined with the following findings. On her L medial forearm is a 2-3 cm indurated plaque with overlying desquamative scaling. On her R forearm is a 3-4cm indurated plaque with central fluctuance. Her R hand and wrist appear edematous with minimal flexion capability. Assessment: A/P: 37F hx of CD, Ovarian cancer (s/p chemorads, hysterectomy) with plaques on both forearms that are clinically inconsistent with PG and may be due to an infectious cause (abscess). She will need to undergo treatment of her current lesions as an infection (possible I+D, per hand surgery discretion). Probability for PG is less than 1% based on the clinical findings (too edematous and erythematous). Usually PG will start as a banal pustule that will develop into a spreading ulcer. She has a history of abscesses in the past, all at various locations. She will need to undergo workup of her multiple infections since she does not have any active immunosuppressants and is presumably -not consistent with PG -treat abscess per primary team discretion -recommend work up for multiple abscesses Thank you for the consultation of this patient. Please page the Dermatology team pager ([phone]) with any questions. Plan discussed with primary team verbally on the phone. Jim Alejandro MD PGYII Dermatology Signature/Cosignature/Attestation: Attending AttestationI saw and evaluated the patient. I personally obtained the hankins and critical portions of the history and physical exam or was physically present for hankins and critical portions performed by the resident/fellow. I reviewed the resident/fellow?s documentation and discussed the patient with the resident/fellow. I agree with the resident/fellow?s medical decision making as documented in the resident?s note. I personally evaluated the patient (as noted in the above attestation) on 24-Aug-2017 Comments/ Additional Findings To clarify, I did not see patient face to face. I evaluated photos of the patient taken with the patient's permission by the resident of the abscesses in question. The amount of erythema, fluctuance, and surrounding induration of the tissue seems more consistent with patient's history of multiple abscesses. Patient does not seem to have recurrent abscesses in the same areas (there is no scar tissue or healing wounds in the same area) making a chronic condition such as PG less likely. If patient were to develop recurring ulcers in the same or very nearby surrounding areas would warrant evaluation for pyoderma gangrenosum. However, because biopsy is often nonspecific and is a clinical diagnosis and there is significant concern for infection in the patient, which would likely worsen if she were treated with steroids (which is the appropriate first like treatment for PG) would recommend treating the infection first and then re-evaluate as an outpatient if lesions recur. Electronic Signatures: Ale Lopez) (Signed 27-Aug-2017 20:04) Authored: Signature/Cosignature/Attestation Co-Signer: Service, History of Present Illness, Allergies, Objective, Assessment/Recommendations, Signature/Cosignature/Attestation Jim Alejandro (Resident)) (Signed 24-Aug-2017 19:32) Authored: Service, History of Present Illness, Allergies, Objective, Assessment/Recommendations, Signature/Cosignature/Attestation Last Updated: 27-Aug-2017 20:04 by Ale Lopez) RISK SCREEN - ADULT Observed: 08/24/2017 Status: UNK Source: [facility] 6:04 PM HOSPITALS REPOSITORY Preferred Language: Preferred Language: ? Preferred Language for Discussing Health Care (patient/designee) Algerian Advanced Directives: ? Advance Directive Medical no Family Violence Adult: Abuse Screen: ? Are you or have you been threatened or abused physically, emotionally, or sexually by anyone? no Suicide / Depression: Suicide/Depression Screen: ? During the past month, have you often been bothered by feeling down, depressed or hopeless? no ? During the past month, have you often had little interest or pleasure in doing things? no ? Have you had any thoughts of harming yourself? no ? Have you had any thoughts of harming anyone else? no Learning Assessment (Patient): Learning Assessment (Patient): ? Patient is Able to be Assessed for Learning yes ? Factors Influencing Readiness to Learn acuteness of illness; pain ? Factors that Impact Ability to Learn none ? Devices/Methods Used to Communicate none ? Learning Preferences verbal instruction; written material ? Cultural Considerations none ? Developmental Considerations none ? Shinto Considerations none Learning Assessment (Other Learner): Learning Assessment (Other Learner): ? Other learner available no Fall Risk Adult: Falls Risk: ? Altered Mobility none ? Change in Mental Status no ? Relevant Medical History / Diagnosis none ? Fall History none ? Altered Elimination no ? Medications that Might Alter: equilibrium, cognitive judgement or severity of injury narcotics ? Sensory Deficit no ? UNABLE or UNWILLING to Follow Directions no ? Patient Identified as a Falls Risk yes Pressure Injury: Pressure Injury Present on Admission no Respiratory / Cough /TB: ED / TB / Cough / Respiratory Screen: ? Do you have a cough? no Smoking/Social History (Required age 13 or older): Smoking Status: current every day smoker Alcohol Use: denies Drug Use: denies Admission Risk Screen: ? Significant Indicators Complete CAGE: CAGE: Is this an injured patient at a Trauma Center ([facility] / [facility]): no Electronic Signatures: Tanner Hutchison) (Signed 24-Aug-2017 18:05) Authored: Preferred Language, Advanced Directives, Family Violence Adult, Suicide / Depression, Learning Assessment (Patient), Learning Assessment (Other Learner), Fall Risk Adult, Pressure Injury, Respiratory / Cough /TB, Smoking/Social History (Required age 13 or older), CAGE Last Updated: 24-Aug-2017 18:05 by Tanner Hutchison (ANDREW) TRIAGE - ED Observed: 08/24/2017 Status: UNK Source: [facility] 4:08 PM HOSPITALS REPOSITORY Quick Triage: Are You no Are You Currently unable to answer Chart Review: CHIEF COMPLAINT VIELKA IBARRA is a Female patient with a chief complaint of abscess. Other Complaints: Patient transferred [facility] from [facility] for abscesses to arms bilaterally. Patient received zosyn prior to arrival and arrived to ED with vancomycin infusing. Patient complained of nausea en route to [facility] and received 4 mg zofran IVP by EMS at 15:42. Triage Date/Time: 24-Aug-2017 16:08 Vital Signs: Temperature: 99.5F ( 37.5C) taken forehead Blood Pressure: 130/83 Mean: Heart Rate: 78 Respiratory Rate: 16 Pulse Oximetry: 100% Height: 5 feet 7.00 inches. 170.1 CM Weight: 110.0 pounds. Calculated 49.8 kg. 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 Past Medical History Reviewed yes ? hepatitis C: Past Medical History, Active ? Crohn's Disease: Past Medical History, Active ? cervical cancer: Past Medical History, Active Electronic Signatures: Ashley Perez) (Signed 24-Aug-2017 16:11) Authored: Triage, Past Medical History Last Updated: 24-Aug-2017 16:11 by Ross, Ashley (RN) U DOA Collected: 08/24/2017 Status: F Source: [facility] 3:37 PM [facility] REPOSITORY TYPE CODE TESTS RESULT OUT OF RANGE REFERENCE UNITS LAB [id number] Normal Negative Opiates, U LAB [id number] Normal Negative Amphetamine s, U Result Comment: Urine for Drugs of Abuse tests (U Amphetamines, U Barbituates, U PCP, U Benzodiazepines, U Cocaine, U THC, U Opiates & U Ecstasy)provide preliminary test results only. A more specif ic alternate method must be used in order to obtain a confirmed analytical result. Gas chromatography/mass spectrometry is the preferred confirmatory method. Clinical consideration and professional ju dgment should be applied to any drug of abuse test result, particularly when preliminary positive results are used. Urine for Drugs of Abuse [place] Levels: Barbiturate 200 ng/ml PCP 25 ng/ml Cocaine 300 ng/ml Opiates 2000 ng/ml Amphetamines 1000 ng/ml Benzodiazepines 200 ng/ml THC 50 ng/ml EXTC 500 ng/ml LAB [id number] Benzodiazepines, U Normal Negative LAB [id number] Ecstasy, U Normal Negative LAB [id number] Cocaine, U Normal Negative LAB [id number] Barbituates, U Normal Negative LAB [id number] THC, U Normal Negative LAB [id number] PCP, U Normal Negative Performed By: #### [id number] #### [facility] [address] [place], [place] [id number] Family Practitioner: Tavo Nguyen MD ED PHYSICIAN REPORT Observed: 08/24/2017 Status: C Source: [facility] 3:31 PM [facility] REPOSITORY Order Comment: Missing Attachment [id number] can be viewed in source system Patient: VIELKA IBARRA [facility]: [id number] Age: 37 years Sex: Female : 1980 Associated Diagnoses: Failure of outpatient treatment; Cellulitis of right forearm; Abscess of left forearm; Infection of right hand; Sepsis Author: OSKAR LANCE PA-C Basic Information Time seen: Time Seen: OSKAR LANCE PA-C / 08/24/2017 13:10 . History source: Patient, father. Arrival mode: Private vehicle. History limitation: None. History of Present Illness The patient presents with abscess. The onset was 1 days ago. The course/duration of symptoms is constant and worsening. Location: Bilateral face upper extremity. The character of symptoms is pain, r edness and swelling. The degree of symptoms is moderate. Risk factors consist of Pt finished abx one week ago for abscess of the face. She thinks she was taking Doxycycline and not diabetes mellitus. Prior episodes: frequent. Therapy today: none. Associated symptoms: denies fever, denies nausea, denies vomiting and denies abdominal pain. Additional history: 37 yo F with redness, swelling and wa rmth to the left forearm and right hand and forearm. Pt states the swelling started prior to the redness. She denies IV drug abuse but has a h/o Hep C for which she sees a specialist. She denies Feve r. Denies h/o DM. Pt denies injury. Per [facility], pt has a h/o of Suboxone treatment.. Review of Systems Constitutional symptoms: No fever, no chills. Skin symptoms: No jaundice, no rash. Eye symptoms: No recent vision problems, ENMT symptoms: No sore throat, no nasal congestion. Respiratory symptoms: No shortness of breath, no cough. Cardiovascular symptoms: No chest pain, no syncope. Gastrointestinal symptoms: No abdominal pain, no vomiting, no diarrhea. Genitourinary symptoms: No dysuria, no hematuria. Musculoskeletal symptoms: No back pain, no Muscle pain. Psychiatric symptoms: No anxiety, no depression. Neurologic symptoms No headache, no numbness, no weakness. Additional review of systems information: All other systems reviewed and otherwise negative. Health Status Allergies: Allergic Reactions (Selected) No Known Allergies. Medications: (Selected) Inpatient Medications Ordered Zosyn: 3.375 g = 50 mL, 100 mL/hr, IV Piggyback, ONCE lidocaine 1% injectable solution: 200 mg = 20 mL, Intradermal, ONCE vancomycin: 1 g = 200 mL, 200 mL/hr, IV Piggyback, ONCE. Past Medical/ Family/ Social History Medical history: Resolved Cervical cancer (180.9): Resolved.. Social history: Alcohol use: Denies, Tobacco use: Regularly, Drug use: Denies. Problem list: Active Problems (2) Hepatitis C Ovarian cancer . Physical Examination Vital Signs Vital Signs 08/24/2017 13:11 EDT Temperature Oral 36.8 degC NORMAL Peripheral Pulse Rate 94 bpm NORMAL Respiratory Rate 16 br/min NORMAL Systolic Blood Pressure 152 mmHg HI Diastolic Blood Pressure 92 mmHg HI SpO2 100 % NORMAL Oxygen Therapy Room air Height/Length Dosing 170.18 cm Weight Dosing 52.3 kg Body Mass Index Dosing 18 . General: Alert. Skin: , 3cm raised, fluctuant abscess to the left forearm. 4cm raised fluctuant abscess with surrounding erythema and swelling to the right dorsal forearm with swelling an d erythema extending into right hand, Healing abrasion to the lower mid lip., Pt has multiple pinpoint scabs in iris antecubitals and right forearm consistent with needle sticks. . Head: Normocephalic, atraumatic. Neck: Supple, trachea midline. Eye: Pupils are equal, round and reactive to light, extraocular movements are intact. Ears, nose, mouth and throat: Oral mucosa moist. Cardiovascular: Regular rate and rhythm, No murmur, No edema, Arterial pulses: Bilateral, radial, dorsalis pedis, +2/4. Respiratory: Lungs are clear to auscultation, respirations are non-labored, breath sounds are equal. Gastrointestinal: Soft, Nontender, Non distended, Normal bowel sounds. Back: Normal range of motion. Musculoskeletal: Normal ROM, normal strength. Psychiatric: Cooperative. Neurological Alert and oriented to person, place, time, and situation, No focal neurological deficit observed, normal sensory observed, normal motor observed, normal speech observed. Medical Decision Making Differential Diagnosis:: Abscess, cellulitis. Documents reviewed: Prior records. Results review: Lab results : Laboratory 08/24/2017 14:43 EDT Color, U Straw Appearance, U Clear Specific [place], U 1.005 NORMAL pH, U 8.0 NORMAL Protein, U Negative Glucose Qual, U Negative Ketones, U Negative Bilirubin, U Negative Blood, U Negative Urobilinogen Qual, U <2.0 mg/dl Nitrite, U Negative Leukocyte Esterase, U Large RBC/HPF, U 1 #/HPF NORMAL WBC/HPF, U 12 #/HPF HI Squamous Epithelial Cells, U <1 #/HPF NA Non-Squamous Epithelial, U <1 #/HPF NA Test, U Negative 08/24/2017 14:20 EDT Estimated Creatinine Clearance 67.43 mL/min 08/24/2017 13:44 EDT BUN 9 mg/dL LOW Na 138 mmol/L NORMAL K 3.9 mmol/L NORMAL Chloride 105 mmol/L NORMAL CO2, venous 25.3 mmol/L NORMAL Glucose 104 mg/dL HI Creatinine 1.1 mg/dL HI Total Protein 8.4 g/dL NORMAL Calcium 9.6 mg/dL NORMAL Bilirubin, Total 0.24 mg/dL NORMAL Alk Phos 66 unit/L NORMAL GOT 27 unit/L NORMAL GPT 53 unit/L NORMAL BUN/Creat Ratio 8.0 NA Calculated Osmolality 275 mOsm/kg NORMAL Globulin 5.1 g/dL NA A/G Ratio 0.6 NA LACTATE 3.0 mmol/L HI ALB 3.3 g/dL LOW Glomerular Filtration Rate 54 mL/min/1.73m? NA GFR AA >60 NA WBC 12.2 x10 RBC 4.27 x10 HGB 13.0 g/dL NORMAL HCT 38.3 % NORMAL MCV 89.6 fL NORMAL MCH 30.4 pg NORMAL MCHC 33.9 g/dL NORMAL RDW 14.1 NORMAL Platelet 305 x1000 NORMAL MPV 7.3 fL LOW Nucleated RBC 0 /100WBC NA Lymph % 23.8 % NA [place] % 7.8 % NA Neutrophil % 66.8 % NA Eosin % 0.4 % NA Basos % 1.1 % NA Lymph Count 2.92 x1000 NORMAL [place] Count 0.95 x1000 NORMAL Neutrophil Count (ANC) 8.17 x1000 NORMAL Eos Count 0.06 x1000 NORMAL Baso Count 0.14 x1000 NORMAL . Reexamination/ Reevaluation Blood cxs and abxs started in the ER. Concern for pt failing outpt treatment due to recent abx use and worsening of symptoms. Impression and Plan Diagnosis Failure of outpatient treatment (DVL23-TE Z78.9, Working, Emergency medicine, Medical) Cellulitis of right forearm ([id number] L03.113, Working, Emergency medicine, Medical) Sepsis ([id number]-EW A41.9, Working, Medical) Abscess of left forearm (CHH78-VK L02.414, Working, Emergency medicine, Medical) Failure of outpatient treatment ([id number]-FM Z78.9, Working, Emergency medicine, Medical) Infection of right hand (HII79-LX L08.9, Working, Medical) Calls-Consults - ARIELLE GAONA MD, Hand surgeon not available at this hospital today. [facility] paged at [phone].. Plan Condition: Stable. Disposition: Patient care transitioned to: Time: 08/24/2017 13:58:00, KORINA SIDDIQUI DO. Counseled: Patient, Family, Regarding diagnosis, Regarding diagnostic results, Regarding treatment plan, Patient indicated understanding of instructions, Family understood. Addendum I personally evaluated and examined the patient in conjunction with the MLP and agree with the assessment, treatment plan and disposition of the patient as recorded by the MLP. Labwork shows elevated lactate and CBC consistent with sepsis. Patient was started on broad-spectrum antibiotics and IV hydration. Case discussed with Dr. Gaona, orthopaedic surgery, who recommends transfer to tertiary center for orthopaedic hand coverage, which we do not currently have at this facility. Patient be transferred to [facility] for IV antibiotics and hand surgery evaluation. She is in agreement with the plan and stable at time of transfer. Disposition transfer to [facility] Condition at disposition: Stable Accepting physician Dr. Lira Result Comment: Electronically Co-Signed by: KORINA SIDDIQUI DO on 08/24/2017 15:31 UA Collected: 08/24/2017 Status: F Source: [facility] 3:14 PM [facility] REPOSITORY TYPE CODE TESTS RESULT OUT OF RANGE REFERENCE UNITS LAB 9866384 Color, U Normal Straw LAB 2901121 4.5-8.0 pH, U Normal 8.0 LAB 1902597 0-3 #/HPF RBC/HPF, U Normal 1 LAB 6235664 1.001-1.035 Specific Normal [place], U 1.005 LAB 9316128 Negative Bilirubin, Normal U Negative LAB 5446187 Negative Nitrite, U Normal Negative LAB 1465719 #/HPF Normal Non-Squamous <1 Epithelial, U LAB 6388719 Appearance, Normal U Clear LAB 9800413 Negative Protein, U Normal Negative LAB 9272708 0-5 #/HPF High WBC/HPF, U 12 LAB 9101162 Negative Blood, U Normal Negative LAB 7465308 Negative Leukocyte Abnormal Esterase, U Large LAB 8462213 Negative Ketones, U Normal Negative LAB 2654343 <2.0 mg/dl Normal Urobilinogen <2.0 mg/dl Qual, U Result Comment: EU/dl and mg/dl are equivalent units. LAB 5949031 Negative Glucose Normal Qual, U Negative LAB 0155508 #/HPF Squamous <1 Normal Epithelial Cells, U LAB 8779683 U MICRO Normal Indicated Performed By: #### [id number] #### [facility] [address] [place] [id number] Family Practitioner: Tavo Nguyen MD BRANDON PROGRESS NOTE-ED Observed: 08/24/2017 Status: C Source: [facility] NURSE 2:43 PM [facility] REPOSITORY THE PATIENT REPORTS FOURTEEN OR FIFTEEN EPISODES OF ABCESSES. SHE HAS AN ABCESS ON HER RIGHT WRIST AND LEFT LWER FOREARM. SHE REPROTS THAT DR. SAENZ IS HER FAMILY DOCTOR. SHE REPORTS SEEING DR. WEBB A SCRAPER LOADER OPERATOR AND LIVER SPECIALIST. S/P MEDICATED FOR COMPLAINTS OF PAIN. REPORT TO [facility]. [phone]. THE PATIETNT WAS A SEPSIS ALERT AT 14[address] DUE TO L[address]ATE PER DR[address] SIDDIQUI. REPORT TO ANDREW SUH. DR. SALDIVAR AT [facility] IS THE ACCEPTING PHYSICIAN IN THE ER. COMPMETA Collected: 08/24/2017 Status: F Source: [facility] 2:20 PM [facility] REPOSITORY TYPE CODE TESTS RESULT OUT OF RANGE REFERENCE UNITS LAB 7678 10-20 mg/dL Low BUN 9 LAB 5036131 8.5-10.5 mg/dL Normal Calcium 9.6 LAB 2912206 g/dL Normal Globulin 5.1 LAB 7501 3.4-5.0 g/dL Low ALB 3.3 LAB 1206550 72-100 mg/dL High Glucose 104 Result Comment: Venipuncture should occur prior to sulfasalazine administration due to the potential for falsely depressed results. Venipuncture should occur prior to sulfapyridine administration due t o the potential falsely elevated results. Baseline assay values before administration of sulfasalazine and sulfapyridine therapy would not be affected. LAB 5562310 15-37 unit/L Normal GOT 27 Result Comment: Venipuncture should occur prior to sulfasalazine and/or sulfapyridine administration due to the potential for falsely depressed results. Baseline assay values before administration of sulfasalazine and sulfapyridine therapy would not be affected. LAB 6479788 100-109 mmol/L Chloride Normal 105 LAB 1492155 0.20-1.00 mg/dL Normal Bilirubin, Total 0.24 LAB 0799699 135-145 mmol/L Na Normal 138 LAB 3394089 45-117 unit/L Alk Phos Normal 66 LAB 2286580 0.6-1.0 mg/dL High Creatinine 1.1 LAB 4966202 13-56 unit/L GPT Normal 53 Result Comment: Venipuncture should occur prior to sulfasalazine and/or sulfapyridine administration due to the potential for falsely depressed results. Baseline assay values before administration of sulfasalazine and sulfapyridine therapy would not be affected. LAB 2742906 21.0-32.0 mmol/L Normal CO2, venous 25.3 LAB 7234773 6.0-8.5 g/dL Normal Total Protein 8.4 LAB 7698652 3.5-5.1 mmol/L Normal K 3.9 LAB 603776051(ROBERTO [place]) Normal GFR AA >60 Result Comment: GFR Calc LAB 8964944(LOINC) Normal A/G Ratio 0.6 LAB 8705992 Normal BUN/Creat Ratio 8.0 LAB 18761353 mL/min/ Normal 1.73m? Glomerular Filtration Rate 54 Result Comment: Non GFR Calc Medical judgement is necessary to interpret GFR. The calculated GFR may not accurately reflect renal status in patients >70 years, women, acutely ill hospitalized patients and patients with acute renal failure or known renal disease. Note: Creatinine clearance (not GFR) should be used for drug dosing. LAB 5117639 275-295 mOsm/kg Normal Calculated Osmolality 275 Performed By: #### [id number], [id number], [id number] #### [facility] [address] [place] [address] [id number] Family Practitioner: Tavo Nguyen MD LACTATE Collected: 08/24/2017 Status: F Source: [facility] 2:20 PM [facility] REPOSITORY TYPE CODE TESTS RESULT OUT OF REFERENCE UNITS RANGE LAB 8250 0.4-2.0 mmol/L High LACTATE 3.0 Performed By: #### [id number] #### [facility] [address] [place] [address] Family Practitioner: Tavo Nguyen MD AUTO DIFF Collected: 08/24/2017 Status: F Source: [facility] 1:54 PM [facility] REPOSITORY TYPE CODE TESTS RESULT OUT OF REFERENCE UNITS RANGE LAB 9809246 0.00-0.20 x1000 Baso Normal Count 0.14 LAB 0743355 % Basos % Normal 1.1 LAB 1383317 0.10-1.00 x1000 [place] Normal Count 0.95 LAB 4896813 % [place] % Normal 7.8 LAB 2424378 % Normal Neutrophil % 66.8 LAB 4673710 1.40-8.80 x1000 Normal Neutrophil Count 8.17 (ANC) LAB 4986617 % Eosin % Normal 0.4 LAB 4077270 0.00-0.50 x1000 Eos Normal Count 0.06 LAB 2910919 1.20-4.80 x1000 Lymph Normal Count 2.92 LAB 3865792 % Lymph % Normal 23.8 Performed By: #### [id number], 7612206, 494001 #### [facility] [address] [place] [address] Family Practitioner: Tavo Nguyen MD HEMO Collected: 08/24/2017 Status: F Source: [facility] 1:54 PM [facility] REPOSITORY TYPE CODE TESTS RESULT OUT OF RANGE REFERENCE UNITS LAB 8611 4.20-5.40 x10 Normal RBC 4.27 Result Comment: Note: RBC morphology is normal unless otherwise stated. Evaluation performed only if differential is requested. LAB 1616627 150-450 x1000 Normal Platelet 305 LAB 4593628(LOINC) Instr Normal WBC 12.2 LAB 8314 32.0-37.0 g/dL MCHC Normal 33.9 LAB 8315 80.0-100.0 fL MCV Normal 89.6 LAB 8340 7.4-10.4 fL Low MPV 7.3 LAB 8153 12.0-16.0 g/dL HGB Normal 13.0 LAB 8986 4.5-11.0 x10 High WBC 12.2 LAB 8618 11.5-14.5 RDW Normal 14.1 LAB 8313 27.0-34.0 pg MCH Normal 30.4 LAB 18446858 /100WBC Normal Nucleated RBC 0 LAB 8129 36.0-46.0 % HCT Normal 38.3 LAB 6958302(LOINC) DIFF? Normal No Performed By: #### 760102, 2274295, 437391 #### [facility] [address] [place] [address] Family Practitioner: Tavo Nguyen MD ALLERGIES ALLERGIES DATE TYPE / CODE NAME / CODE REACTION SEVERITY SOURCE 02/03/2018 Drug No Known Unknown [facility] Allergy/4160 Allergies/F00 Hospital 60329(SNOMED 0659005(RXNOR Repository CT) M) ENCOUNTERS ENCOUNTERS ADMIT/DISCHARGE ACCOUNT NUMBER ADMITTING ENCOUNTER LOCATION SOURCE CLASS 04/12/2018 [id number] Unknown [facility]ulatory [facility] Repository 03/10/2018/ [id number] [place], Inpatient [place] Zaida 018 Ghasem Encounter [facility] ding:ON8Ryml Repository : PA949Bni: 1 03/10/2018 [id number] [place], Ambulatory BMSBuilding: Zaida Ghasem BMS.[facility] Repository 03/10/2018 [id number] [place], Ambulatory BMSBuilding: Zaida Ghasem BMS.[facility] Repository 03/10/2018 [id number] [place], Ambulatory BMSBuilding: Zaida Ghasem BMS.[facility] Repository 03/10/2018 [id number] [place], Ambulatory BMSBuilding: Zaida Ghasem BMS.[facility] Repository 02/15/2018/ [id number] Emergency Building:[place] [address] Room: 05Bed: [facility] 05 Repository 02/03/2018/ [id number] Emergency [place] 018 [facility] ding:ED Repository 01/03/2018/ [id number] CALEB THORPE Ambulatory Building:[address] [facility] 018 TRoom: [facility] C777Krn: Repository 11/13/2017/ [id number] Ambulatory AMBMEXBuildi [facility] 018 ng:AMBMAX [facility] Repository 09/24/2017/ [id number] NKADI, Ambulatory Building:[facility] 018 SABRINA O TRoom: [facility] Y331Aem: 01 Repository 09/23/2017/ [id number] Emergency Building:LED [facility] 018 Room: 03Bed: Medical Center 03 Repository 09/19/2017/ [id number] Ambulatory [id number] [place] 018 g:C103 [facility] Repository 08/24/2017/ [id number] Dr. Nolan Inpatient UHCBuilding: [place] [address] Annika Encounter UQ08Stwv: [facility] H0472Xqy: Repository [id number] 08/24/2017/ [id number] Emergency 31986Gtsvjav [facility] 018 g:EMERRoom: General [facility] VV43Sxk: 1 Center Repository 05/26/2017/ [id number] Unknown Ambulatory [facility] 018 uildin [facility] Repository 05/26/2017 [id number] Unknown Ambulatory [facility] Repository PAYERS PAYERS ENCOUNTER GUARANTOR PAYER SUBSCRIBER SOURCE [facility]2018 [facility] SHERIFFDOB: Insurance:[facility] BLACKDOB: System [id number] [place] [id number] Repository [facility] DEPT Number: [id number]: (216) SHELTER [id number] [phone] () [id number] [address] Date:2018-04-12 [place], [place] [address]Gbi: () 03/10/2018 VIELKA L Primary VIELKA L Zaida [id number] Insurance:CARESOURCEPol BLACKDOB: [facility] icy Number: [id number], [place] [id number] Repository 530[address]Lsk: (216) Date:2018-03-10[phone] () 4258ATTN: [place] [address]QI: 03/10/2018 Secondary NOT GIVENUNK Zaida Insurance:SELF PAY [facility] INSURANCEPolicy Number: Hospital Effective Repository Date:2018-03-10 03/10/2018 VIELKA L Primary VIELKA L [place] [id number] Insurance:CARESOURCEPol BLACKDOB: [facility] icy Number: [id number], [place] [id number] Repository 295[address]Ccf: (216) Date:2018-03-10 [phone] (HP) 4630ATTN: [place] [address]JH: 03/10/2018 Secondary NOT GIVENUNK Zaida Insurance:SELF PAY Community INSURANCEPolicy Number: Hospital Effective Repository Date:2018-03-10 03/10/2018 VIELKA L Primary VIELKA L [place] [id number] Insurance:CARESOURCEPol BLACKDOB: Community [facility] icy Number: [id number], [place] [id number] Repository 167[address]Dcg: (216) Date:2018-03-10 [phone] (HP) 8730ATTN: [place] [address]BN: 03/10/2018 Secondary NOT GIVENUNK [place] Insurance:SELF PAY Community INSURANCEPolicy Number: Hospital Effective Repository Date:2018-03-10 03/10/2018 VIELKA L Primary VIELKA L [place] [id number] Insurance:CARESOURCEPol BLACKDOB: [facility] icy Number: [id number], [place] [id number] Repository [address]98[address]Hxj: (216) Date:2018-03-10 [phone] (HP) 2030ATTN: [place] [address]MQ: 03/10/2018 Secondary NOT GIVENUNK Zaida Insurance:SELF PAY Community INSURANCEPolicy Number: Hospital Effective Repository Date:2018-03-10 03/10/2018 VIELKA L Primary VIELKA L [place] [id number] Insurance:CARESOURCEPol BLACKDOB: [facility] icy Number: [id number], [place] [id number] Repository [address]Xns: (216) Date:2018-03-10 [phone] (HP) 8730ATTN: [place] [address]BZ: 03/10/2018 Secondary NOT GIVENUNK Za[place] Insurance:SELF PAY Community INSURANCEPolicy Number: Hospital Effective Repository Date:2018-03-10 02/15/2018 VIELKA L Primary VIELKA L [facility] BLACKDOB: Insurance:CARESOURCEPol BLACKDOB: [facility] icy Number: [id number] Repository [place] [id number] 1 [facility], Date:7854-11-12GNGOOD [facility] [address]Vmm: [place], [place] [address]Xhf: 216) [phone]: (HP) (HP) [phone] 02/03/2018 VIELKA L Primary VIELKA L [place] [id number] Insurance:CARESOURCEPol BLACKDOB: [facility] icy Number: [id number], [place] [id number] Repository [address]Leb: (216) Date:2018-02-03[phone] (HP) 8730ATTN: [place] [address]WP: 02/03/2018 Secondary NOT GIVENUNK Zaida Insurance:SELF PAY Community INSURANCEPolicy Number: Hospital Effective Repository Date:2018-02-03 01/03/2018 VIELKA L Primary VIELKA L [facility] BLACKDOB: Insurance:CARESOURCEPol BLACKDOB: [facility] icy Number: [id number] Repository [place] [id number] 1 [facility], Date:2243-52-42QNRICHMOND, [place] [address]Gqf: [address], [place] [address]Taa: [phone]: (HP) (HP) [phone] 09/24/2017 VIELKA L Primary VIELKA L [facility] BLACKDOB: Insurance:CARESOURCEPol BLACKDOB: [facility] icy Number: [id number] Repository [place] [id number] 1 [facility], Date:6484-15-62PVFWQZST. JOSEPH HOSP[facility] [address]Kqx: DEPART[address]PO [address] [address]Jdf: [phone]) [address] [place] [address]QH: [phone] (HP) (HP) 09/23/2017 [facility] BLACKDOB: Insurance:CARESOURCEPol BLACKDOB: [facility] icy Number: [id number] Repository [facility] [id number] 1 [facility], Date:0223-00-68LBBIMTST. JOSEPH HOSPITAL [address]Fjf: DEPART[address]PO [address] [address]Yxe: 216) [address] [place] [address]US: [phone] (HP) (HP) 08/24/2017 [facility] BLACKDOB: Insurance:CaresourcePol BLACKDOB: [facility] icy Number: [id number] Repository [facility] [id number] 0C [facility] Date:Plan Name:[place], [place] [address] [place] [address]Nbf: [phone] [phone]: [phone]: (HP) [phone] (HP) 05/26/2017 [facility] SHERIFFDOB: Insurance:[facility] BLACKDOB: System [id number] [place] [id number] Repository [place], [place] [facility] DEPT Number: [id number]: (216) ANDRIA [id number] [phone] (HP) [id number] [address] Date:2017-05-26 [place], [place] 2017-06-11 [address]Rhx: (HP) 05/26/2017 [facility] SHERIFFDOB: Insurance:HERNESTO PICKETTB: System [id number] [id number] Repository [facility] DEPT Number: [id number]: (499) SHELTER [id number] [phone] () [id number] [address] Date:2017-05-26 [place], [place] [address]Nej: ()
== END 2018-03-13 10:53 | disposition home or self-care (01) | DRG 773 ==
PROVIDERS: Admitting Provider Hospitalist; Referring Provider Hospitalist; Visit Provider Hospitalist
DX: F11.23 Opioid dependence with withdrawal (principal); B18.2 Chronic viral hepatitis C; L02.02 Furuncle of face; F32.9 Major depressive disorder, single episode, unspecified; Z85.43 Personal history of malignant neoplasm of ovary; Z92.21 Personal history of antineoplastic chemotherapy; Z90.710 Acquired absence of both cervix and uterus; Z90.722 Acquired absence of ovaries, bilateral; Z90.79 Acquired absence of other genital organ(s); Z79.899 Other long term (current) drug therapy; E46 Unspecified protein-calorie malnutrition; Z68.1 Body mass index [BMI] 19.9 or less, adult; F17.210 Nicotine dependence, cigarettes, uncomplicated
CPT/HCPCS: 36415; 80053; 80307; 80320; 84703; 85025; 97802; 99218; G0378; G0379; G0480

== ENCOUNTER 2019-07-20 13:00 | Observation (INO) | payer MEDICAID, SELFPAY ==
[2018-03-10 10:55] VITALS: BMI 16.6
[2019-07-20 13:01] VITALS: BP 160/89; PULSE 92; RESP 20; TEMP 37.2; O2SAT 98; BMI 19.8
--- NOTE | 2019-07-20 13:23 | ED.DCSUM_ITS ---
- ER Visit Summary Date of Service: 07/20/19 Chief Complaint: Requesting heroin detox History of Present Illness: The patient is a 39 F presenting requesting heroin detox. Patient states her last use was yesterday. She states her last detox was over 4 years ago. She states she was clean for 4 years and recently relapsed 2 weeks ago. She states she has been using 0.5 to 1 g/day of heroin. She states she feels like she has chills and skin crawling. She has mild diffuse abdominal cramping and diarrhea. She denies fever or other complaints. Physical Examination: Vitals are stable. Patient is afebrile. Alert no acute distress. HEENT exam is unremarkable. Neck is supple. Lungs are clear and equal bilaterally. Heart is regular rate and rhythm. Abdomen is soft nontender nondistended. No guarding or rebound Extremities are unremarkable. Skin is warm and dry. No focal neurologic deficit. Remainder of exam is unremarkable. Emergency Department Course and Treatment: Patient was given IV fluids. Labs are pending at this time. Discussed with the hospitalist for admission. Disposition: Admission Impression: Acute opioid withdrawal This note was generated with [employer] dictation software. It may contain incorrect words, spelling, and punctuation that were not noted in review of the chart prior to signing ED Disposition - Plan for ED Patient: Referrals: [facility] Doctor,Out of [NON-STAFF] -
[2019-07-20 13:47] VITALS: BP 152/91; PULSE 86; RESP 16; O2SAT 97
[2019-07-20] MEDS: 0.9% Normal Saline 1,000 ML 1000 ML IV (13:47)
--- NOTE | 2019-07-20 13:57 | NURSING ---
MED SURG OPIOID WITHDRAWAL ASHELFAH
--- NOTE | 2019-07-20 13:58 | PCM.HP.STD ---
Problem List (1) Acute opioid withdrawal Status: Acute (2) Hepatitis C Status: Chronic (3) Depression Status: Chronic (4) Nicotine abuse Status: Chronic (5) Hx of ovarian cancer Status: Chronic History of Present Illness Date of Admission: 07/20/19 Chief Complaint: Requesting detoxification from acute opioid withdrawal. The patient is a 39 year old F with past medical history as mentioned above presented to the emergency room requesting admission for acute opioid withdrawal for medical stabilization. Patient claimed that she has been clean for 4 years and she relapsed 2 weeks ago started using IV heroin. She mentioned that she uses about 0.5 to 1 mg of IV heroin daily. Her last use was yesterday around 4 PM. Her main presenting symptoms are abdominal pain, described as cramps, intermittent, associated with nausea and diarrhea and without aggravating or relieving factors. Also, she reported hot and cold chills as well as sweating. She reported associated anxiety and restlessness and she could not sleep last night. She stated that she relapsed 2 weeks ago because of her uncle who she used to stay with. She mentioned that nowadays, she lives alone and she left him. Upon revision of her chart, patient was admitted for acute opioid withdrawal on October, and was readmitted on February, for the same reason but she relapsed and apparently, she has not been clean for 4 years as she claimed. In the emergency department, her blood pressure was not elevated, other vital signs are stable. Routine blood work was unremarkable. LFT was unremarkable. Blood alcohol level was less than 3. Serum test is pending. She is being admitted for acute opiate withdrawal for medical stabilization. 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 Denies: Chills, Fever, Weakness Eyes: Denies: Blurred vision, Double vision, Drainage, Redness HEENT: Denies: Difficulty Hearing, Ear Pain, Eye Pain, Nasal Congestion, Sore Throat Cardiovascular: Denies: Chest Pain, Chest Pressure, Edema, Heaviness, Light Headedness, Palpitations, Syncope Respiratory: Denies: Cough, Pleuritic Pain, Shortness of Breath, Sputum production, Wheezing Gastrointestinal: Reports: Abdominal Pain, Diarrhea, Nausea, Vomiting. Denies: Constipation Genitourinary: Denies: Dysuria, Frequency, Hematuria Musculoskeletal: Denies: Arm Pain, Back Pain, Foot Pain Skin: Denies: Dryness, Rash Neurological: Denies: Balance problems, Double vision, Change in Speech, Slurred speech, Confusion, Headaches, Incoordination, Numbness Psychiatric: Reports: Depression. Denies: Anxiety Endocrine: Denies: Change in Body Habitus, Polydipsia, Polyuria VTE Information - Inpt Only VTE Present on Admission: No VTE Mechan Device Prophylaxis: None VTE Pharm Prophylaxis ordered?: No - Physical Exam Vitals/I&O's: Vital Signs Temp Pulse Resp BP Pulse Ox 98.9 F 86 16 152/91 H 97 07/20/19 13:01 07/20/19 13:47 07/20/19 13:47 07/20/19 13:47 07/20/19 13:47 Oxygen Delivery Method Room Air Weight: 123 lb Body Mass Index (BMI) 19.8 General: Alert, Oriented x3, Cooperative, No apparent distress HEENT: Atraumatic, PERRLA, EOMI, Normocephalic Oral: Moist Mucosa, No Gingival or Mucosal Lesions/ Ulcerations Neck: Supple, No JVD, Negative Carotid Bruits, Trachea Midline, Thyroid Normal Size and Texture Lungs: Clear to auscultation, Normal air movement, No rhonchi, No wheeze, No rales Cardiovascular: Regular rate, Regular Rhythm, Normal S1, Normal S2, PMI Normal Abdomen: Bowel Sounds Present, Soft, Non Tender, Non-Distended, No Hepato-splenomegaly Extremities: No clubbing, No cyanosis, No edema Skin: No rashes, No breakdown Lymphatic: No Cervical, Supraclavicular, or Inguinal Adenopathy Neurological: Cranial nerves II-XII grossly intact, Motor Exam 5/5 strength throughout Psych/Mental Status: Normal Affect, Appropriate, Alert and oriented to time, place, person, mood and affect Laboratory Results 07/20/19 13:40: WBC Pending, RBC Pending, Hgb Pending, Hct Pending, MCV Pending, MCH Pending, MCHC Pending, RDW Std Deviation Pending, RDW Coeff of Ollie Pending, Plt Count Pending, Neut % (Auto) Pending, Absolute Neuts (auto) Pending 07/20/19 13:40: Sodium Pending, Potassium Pending, Chloride Pending, Carbon Dioxide Pending, Anion Gap Pending, BUN Pending, Creatinine Pending, Est GFR (MDRD) Af Amer Pending, Est GFR (MDRD) Non-Af Pending, BUN/Creatinine Ratio Pending, Glucose Pending, Calcium Pending, Total Bilirubin Pending, AST Pending, ALT Pending, Alkaline Phosphatase Pending, Total Protein Pending, Albumin Pending 07/20/19 13:40: Ethyl Alcohol Pending Current Medications Sodium Chloride () 1,000 mls @ 1,000 mls/hr IV .Q1H ONE Stop: 07/20/19 14:15 Last Admin: 07/20/19 13:47 Dose: 1,000 mls/hr Documented by: Assessment/Plan All Active Problems Acute opioid withdrawal (Acute) This is a 39 years old female patient presented to the emergency room requesting admission for acute opioid withdrawal for medical stabilization. #1 acute opioid withdrawal: Patient was admitted for medical stabilization twice in the last 3 years although she claimed that she was clean for 4 years. According to the patient, she relapsed 2 weeks ago and she attributed relapse to staying with her uncle who has been using drugs. Last use was yesterday at 4 PM, IV heroin. She denied any use of other drugs. Plan: Admit to [facility] floor, urine drug screen, serum test, initiate opioid withdrawal protocol with tapering Subutex, PRN Tylenol, Catapres, Bentyl, gabapentin, Vistaril, ibuprofen, Imodium, methocarbamol, Zofran and trazodone. I explained to the patient that if she is not determined to stay clean, keep coming back for the same reason is not beneficial to her. She attributed her relapse to being living with her uncle who has been using drugs. She stated that nowadays, she lives alone and she is staying away from her uncle. #2 history of ovarian cancer: Status post hysterectomy and bilateral salpingo-nephrectomy, status post chemotherapy back in 2006, in remission, stable. #3 anxiety/depression: Stable, she is not on any medication at this time. Will wait until all medication list updated. #4 chronic hepatitis C: Never been treated for it. LFT was unremarkable. Recommend referral to infectious disease as outpatient. #5 tobacco abuse: NicoDerm patch. #6 DVT prophylaxis: Low-risk patient, no prophylaxis indicated. This note was generated with [employer] dictation software. It may contain incorrect words, spelling, and punctuation that were not noted in checking the note before signing. Inpatient E&M: 44516 Init Hosp L2
[2019-07-20 14:02] LABS: Absolute Lymphocyte Count 0.99 X10^3/uL (0.83-4.51); Absolute Neutrophil Count 8.6 X10^3/uL (2.0-7.7); Basophil# 0.03 X10^3/uL; Basophil% 0.3 % (0-1); Eosinophil# 0.06 X10^3/uL; Eosinophils% 0.6 % (0-5); Hematocrit 38.6 % (37-47); Hemoglobin 12.4 g/dL (12.0-15.0); Lymphocyte # 0.99 X10^3/ul (4.0); Lymphocyte % 9.3 % (19-41); Mean Corp Hgb Conc 32.1 g/dL (32-36); Mean Corpuscular Hgb 29.7 pg (27.0-32.0); Mean Corpuscular Volume 92.3 fL (81-99); Mean Platelet Vol. 10.5 fl (6.2-12.0); Monocyte# 0.89 X10^3/uL; Monocyte% 8.4 % (0-10); NRBC Flagged by Analyzer 0 % (0-5); Neutrophil # 8.61 X10^3/uL (2.7-7.7); POSITIVE COUNT YES; Platelet Count 207 K/mm3 (150-450); RBC Distribution Width CV 13.2 % (11.6-14.6); RBC Distribution Width SD 44.8 fl (35.1-43.9); Red Blood Count 4.18 M/mm3 (4.2-5.4); White Blood Count 10.6 K/mm3 (4.4-11.0)
[2019-07-20 14:06] LABS: Differential Indicated SCAN CRITERIA MET
[2019-07-20 14:28] LABS: ALB/GLOB Ratio 0.9 RATIO (0.9-2.4); AST(SGOT) 36 U/L (15-37); Alanine Aminotransfer ALT/SGPT 40 U/L (13-56); Albumin, Serum 3.3 g/dL (3.2-5.0); Alkaline Phosphatase 63 U/L (45-117); Anion Gap 4 (5-15); BUN 13 mg/dL (7-18); BUN/Creat Ratio 14.7 RATIO (10-20); Calcium,Total 8.8 mg/dL (8.5-10.1); Chloride 107 mmol/L (98-107); Creatinine, Serum 0.89 mg/dL (0.55-1.02); EST Glomerular Filtration Rate 75 mL/min (>60); Est Glom Filt Rate - Afr Amer 91 mL/min (>60); Estimated Creatinine Clearance 74.01 ml/min; Globulin 3.6 g/dL (2.2-4.2); Glucose 107 mg/dL (74-106); Potassium 3.6 mmol/L (3.5-5.1); Protein, Total 6.9 g/dL (6.4-8.2); Sodium Level 139 mmol/L (136-145)
[2019-07-20 14:30] LABS: Alcohol, Blood (Medical)-Serum < 3.0 mg/dL
[2019-07-20 14:31] LABS: Differential Comment SCANNED
--- NOTE | 2019-07-20 14:40 | CM.ED ---
Social Work Telephone call to Kim Bonner. Voicemail left with request for assessment to be completed with patient for [facility] program. Ihsan Kelley MSW, MORALES
[2019-07-20 14:53] VITALS: BP 145/82; PULSE 85; RESP 16; TEMP 37.2; O2SAT 96
[2019-07-20 14:54] VITALS: BMI 20.1
[2019-07-20 14:57] LABS: Internal QC Validated? YES +Cl - CLEAR BKGD; Pregnancy, Serum, hCG Quali. NEGATIVE Negative
--- NOTE | 2019-07-20 15:32 | CASEMGMT ---
KIAN spoke with Kim at [facility]. She will be in contact with KIAN tomorrow. Elis NIELSEN MSW
[2019-07-20] MEDS: Buprenorphine HCl 2 MG TAB.SUBL SL ×2 (15:38→23:21)
[2019-07-20] MEDS: cloNIDine HCl 0.1 MG Tablet PO (15:38)
[2019-07-20] MEDS: Dicyclomine 10 MG Capsule 20 MG PO (15:39)
[2019-07-20 16:42] LABS: Amphetamine Urine VISTA NEGATIVE (<1000 ng/mL); Barbiturate Urine VISTA NEGATIVE (< 200 ng/mL); Benzodiazepine Urine VISTA NEGATIVE (< 200 ng/mL); Cocaine Urine VISTA POSITIVE (< 300 ng/mL); Ecstacy Urine VISTA NEGATIVE (< 500 ng/mL); Methadone Urine VISTA NEGATIVE (< 300 ng/mL); PCP Urine VISTA NEGATIVE (< 25 ng/mL); THC Urine VISTA POSITIVE (< 50 ng/mL); Vista UDS pH Range 6
[2019-07-20 19:07] VITALS: BP 137/86; PULSE 101; RESP 16; TEMP 37.8; O2SAT 99
[2019-07-20] MEDS: Gabapentin 300 MG Capsule PO (19:14)
[2019-07-20] MEDS: hydrOXYzine PAM 25 MG Capsule 50 MG PO (19:14)
[2019-07-20] MEDS: Methocarbamol 750 MG Tablet 1500 MG PO (21:40)
[2019-07-20 23:13] VITALS: BP 123/66; PULSE 74; RESP 19; TEMP 37.4; O2SAT 96
[2019-07-20] MEDS: traZODone 100 MG Tablet PO (23:21)
[2019-07-21 03:01] VITALS: BP 119/79; PULSE 92; RESP 19; TEMP 37.3; O2SAT 95
[2019-07-21 06:34] VITALS: BP 140/82; PULSE 72; RESP 18; TEMP 37.4; O2SAT 95
[2019-07-21] MEDS: hydrOXYzine PAM 25 MG Capsule 50 MG PO (06:35)
[2019-07-21] MEDS: Dicyclomine 10 MG Capsule 20 MG PO ×2 (06:35→15:50)
[2019-07-21] MEDS: Buprenorphine HCl 2 MG TAB.SUBL SL ×3 (06:37→23:31)
[2019-07-21 09:54] VITALS: BP 129/74; PULSE 74; RESP 18; TEMP 36.8; O2SAT 97
[2019-07-21] MEDS: Methocarbamol 750 MG Tablet 1500 MG PO (10:00)
[2019-07-21] MEDS: cloNIDine HCl 0.1 MG Tablet PO ×2 (10:01→22:12)
[2019-07-21] MEDS: Ibuprofen 600 MG Tablet PO ×2 (10:01→22:12)
--- NOTE | 2019-07-21 13:21 | PN_ITS ---
Reason for Visit: opiate withdrawal Subjective: complains of sore throat. Restless legs, abdominal cramps, nausea. Vitals/I&O's: Vital Signs Temp Pulse Resp BP Pulse Ox 36.8 C 74 18 129/74 H 97 07/21/19 09:54 07/21/19 09:54 07/21/19 09:54 07/21/19 09:54 07/21/19 09:54 Oxygen Delivery Method Room Air Weight: 56.472 kg Body Mass Index (BMI) 20.0 Intake and Output for Last 24 Hours 07/19/19 07/20/19 07/21/19 23:59 23:59 23:59 Intake Total 1500 / 1500 340 / 340 Balance 1500 / 1500 340 / 340 General: Alert, No apparent distress, - - appears older than stated age. afebrile. HEENT: Atraumatic, Normocephalic Oral: Moist Mucosa, No Gingival or Mucosal Lesions/ Ulcerations Neck: No Nodes, Trachea Midline Lungs: Clear to auscultation, Normal air movement, No rhonchi, No wheeze, No rales Cardiovascular: Regular rate, Regular Rhythm, Normal S1, Normal S2, No murmurs Abdomen: Bowel Sounds Present, Soft, Non Tender, Non-Distended, No Hepato- splenomegaly Extremities: No edema, No Calf Tenderness Psych/Mental Status: Normal Affect, Appropriate Laboratory Results 07/20/19 13:40: WBC 10.6, RBC 4.18 L, Hgb 12.4, Hct 38.6, MCV 92.3, MCH 29.7, MCHC 32.1, RDW Std Deviation 44.8 H, RDW Coeff of Ollie 13.2, Plt Count 207, MPV 10.5, Immature Gran % (Auto) 0.400, Neut % (Auto) 81.0 H, Lymph % (Auto) 9.3 L, [place] % (Auto) 8.4, Eos % (Auto) 0.6, Baso % (Auto) 0.3, Absolute Neuts (auto) 8.6 H, Absolute Lymphs (auto) 0.99, Nucleated RBC % 0, Differential Comment SCANNED 07/20/19 13:40: Sodium 139, Potassium 3.6, Chloride 107, Carbon Dioxide 28.0, Anion Gap 4 L, BUN 13, Creatinine 0.89, Estim Creat Clear Calc 74.01, Est GFR (MDRD) Af Amer 91, Est GFR (MDRD) Non-Af 75, BUN/Creatinine Ratio 14.7, Glucose 107 H, Calcium 8.8, Total Bilirubin 0.30, AST 36, ALT 40, Alkaline Phosphatase 63, Total Protein 6.9, Albumin 3.3, Globulin 3.6, Albumin/Globulin Ratio 0.9 07/20/19 13:40: Ethyl Alcohol < 3.0 07/20/19 13:40: Serum , Qual NEGATIVE 07/20/19 16:25: Urine Opiates Screen POSITIVE H, Urine Methadone Screen NEGATIVE, Ur Barbiturates Screen NEGATIVE, Ur Phencyclidine Scrn NEGATIVE, Ur Amphetamines Screen NEGATIVE, U Methamphetamin-MDMA NEGATIVE, U Benzodiazepines Scrn NEGATIVE, Urine Cocaine Screen POSITIVE H, U Cannabinoids Screen POSITIVE H , Ur Drug Screen Comment Current Medications Acetaminophen (Tylenol) 500 mg PO Q4H PRN PRN PRN Reason: Temp > 100.4 F Al Hydroxide/Mg Hydroxide (Mylanta Ii) 30 ml PO Q6H PRN PRN PRN Reason: dyspesia Buprenorphine HCl (Buprenorphine Hcl) 4 mg SL Q8H ANJELICA; Taper Stop: 07/23/19 15:29 Last Admin: 07/21/19 06:37 Dose: 4 mg Documented by: Clonidine (Catapres) 0.1 mg PO Q8H PRN PRN PRN Reason: RESTLESSNESS Last Admin: 07/21/19 10:01 Dose: 0.1 mg Documented by: Dicyclomine HCl (Bentyl) 20 mg PO Q6H PRN PRN PRN Reason: Abdominal Discomfort Last Admin: 07/21/19 06:35 Dose: 20 mg Documented by: Gabapentin (Neurontin) 300 mg PO Q8H PRN PRN PRN Reason: moderate to severe anxiety Last Admin: 07/20/19 19:14 Dose: 300 mg Documented by: Hydroxyzine Pamoate (Vistaril Pamoate Capsule) 50 mg PO Q6H PRN PRN PRN Reason: mild anxiety Last Admin: 07/21/19 06:35 Dose: 50 mg Documented by: Ibuprofen (Motrin) 600 mg PO Q8H PRN PRN PRN Reason: Pain Score 1-10/10 Last Admin: 04/22/20 10:01 Dose: 600 mg Documented by: Loperamide HCl (Imodium) 2 mg PO Q4H PRN PRN PRN Reason: LOOSE STOOLS Methocarbamol (Methocarbamol) 1,500 mg PO Q6H PRN PRN PRN Reason: MUSCLE SPASM Last Admin: 07/21/19 10:00 Dose: 1,500 mg Documented by: Nicotine (Nicoderm Cq (Pbkc)) 21 mg TRANSDERM. DAILY ANJELICA Last Admin: 07/21/19 12:07 Dose: Not Given Documented by: Ondansetron HCl (Zofran) 8 mg PO Q8H PRN PRN PRN Reason: NAUSEA Sodium Chloride () 10 - 40 ml IV UD PRN PRN Reason: SALINE FLUSH Trazodone HCl (Desyrel) 100 mg PO QHS PRN PRN PRN Reason: INSOMNIA Last Admin: 07/20/19 23:21 Dose: 100 mg Documented by: STROKE Vital Signs/Narrative: Vital Signs Temp Pulse Resp BP Pulse Ox 07/21/19 09:54 36.8 C 74 18 129/74 H 97 Medical Necessity - Tobacco Use Smoking Status: Current every day smoker Tobacco Use: Cigarettes Assessment/Plan All Active Problems Acute opioid withdrawal (Acute) 1. acute opiate withdrawal: ongoing. continue with buprenorphine taper as well as other medication to help with somatic complaints. CM to assist with outpt addiction treatment programs. Inpatient E&M: 52363 Subs Hosp L2
--- NOTE | 2019-07-21 14:39 | CASEMGMT ---
[facility] spoke to patient, however she was very drowsy and could not complete assessment. [facility] schedule and appt for patient With Yuliana at [facility] for Friday at 930a via telehealth. Elis RAMÍREZ
[2019-07-21] MEDS: Gabapentin 300 MG Capsule PO (15:48)
[2019-07-21] MEDS: Acetaminophen 500 MG Tablet PO (15:49)
[2019-07-21 15:53] VITALS: BP 126/79; PULSE 73; RESP 16; TEMP 36.8; O2SAT 95
[2019-07-21] MEDS: BENZOCAINE/MENTHOL 1 LOZENGE MUCOUS MEM ×2 (18:05→22:12)
[2019-07-21 21:59] VITALS: BP 130/83; PULSE 71; RESP 18; TEMP 37.1; O2SAT 99
[2019-07-21] MEDS: traZODone 100 MG Tablet PO (23:44)
[2019-07-22 04:05] VITALS: BP 120/70; PULSE 70; RESP 16; TEMP 36.6; O2SAT 97
[2019-07-22] MEDS: Methocarbamol 750 MG Tablet 1500 MG PO ×2 (04:09→10:49)
[2019-07-22] MEDS: BENZOCAINE/MENTHOL 1 LOZENGE MUCOUS MEM ×5 (04:09→22:19)
[2019-07-22] MEDS: Buprenorphine HCl 2 MG TAB.SUBL SL ×2 (06:43→15:11)
[2019-07-22] MEDS: Ibuprofen 600 MG Tablet PO (07:01)
[2019-07-22] MEDS: cloNIDine HCl 0.1 MG Tablet PO (07:01)
--- NOTE | 2019-07-22 07:47 | PN_ITS ---
Subjective: Patient with worsening sore throat but no cough and given difficulty assessing for coronavirus symptoms versus withdrawal as already having body aches, chills, nausea without emesis, abdominal cramping decision to transition to the [facility] area and assure appropriate precautions undertaken. Patient notes that she has been at home only and that her uncle has been giving her her illicit substances but otherwise she had no contact and is not even going to the grocery store prior to her current presentation. Patient denies fevers, chills, chest pain or dyspnea. Objective: Physical Examination: General: awake, alert, oriented x 3 and cooperative, seated upright in the ICU bed in no apparent distress. Skin: normal color, turgor, no icterus, cyanosis except occasional scars and most recent insertion sites with no obvious infection or erythema. HEENT: AT/NC, EOMI, PERRLA, moderately dry MM, no market erythema, exudate. Lungs: CTA bilaterally, moderate effort, mild decrease BL bases, no rales, ronchi or wheezing. Heart: Regular rate and rhythm; no gallop, rub audible. Abdomen: soft, NTTP, ND, normal BS. Extremities: no cyanosis, clubbing, or edema. Neurological: patient awake, alert, oriented x 3; cognitive function appears baseline intact; pupils equally reactive to light and accomodation; cranial nerves II-XII grossly normal, moving all 4 extremities, no focal deficits, strength moderately global decrease secondary to withdrawal. Psychiatric: affect appears fatigued but otherwise normal, no acute evidence of depressive or anxiety feelings. Vitals/I&O's: Vital Signs Temp Pulse Resp BP Pulse Ox 97.9 F 70 16 120/70 97 07/22/19 04:05 07/22/19 04:05 07/22/19 04:05 07/22/19 04:05 07/22/19 04:05 Oxygen Delivery Method Room Air Weight: 124 lb 8 oz Body Mass Index (BMI) 20.0 Intake and Output for Last 24 Hours 07/20/19 07/21/19 07/22/19 23:59 23:59 23:59 Intake Total 1500 / 1500 780 / 780 200 / 200 Balance 1500 / 1500 780 / 780 200 / 200 Current Medications Acetaminophen (Tylenol) 500 mg PO Q4H PRN PRN PRN Reason: Temp > 100.4 F Last Admin: 07/21/19 15:49 Dose: 500 mg Documented by: Al Hydroxide/Mg Hydroxide (Mylanta Ii) 30 ml PO Q6H PRN PRN PRN Reason: dyspesia Buprenorphine HCl (Buprenorphine Hcl) 2 mg SL Q8H ANJELICA; Taper Stop: 07/23/19 15:29 Last Admin: 07/22/19 06:43 Dose: 2 mg Documented by: Clonidine (Catapres) 0.1 mg PO Q8H PRN PRN PRN Reason: RESTLESSNESS Last Admin: 07/22/19 07:01 Dose: 0.1 mg Documented by: Dicyclomine HCl (Bentyl) 20 mg PO Q6H PRN PRN PRN Reason: Abdominal Discomfort Last Admin: 07/21/19 15:50 Dose: 20 mg Documented by: Gabapentin (Neurontin) 300 mg PO Q8H PRN PRN PRN Reason: moderate to severe anxiety Last Admin: 07/21/19 15:48 Dose: 300 mg Documented by: Hydroxyzine Pamoate (Vistaril Pamoate Capsule) 50 mg PO Q6H PRN PRN PRN Reason: mild anxiety Last Admin: 07/21/19 06:35 Dose: 50 mg Documented by: Ibuprofen (Motrin) 600 mg PO Q8H PRN PRN PRN Reason: Pain Score 1-10/10 Last Admin: 07/22/19 07:01 Dose: 600 mg Documented by: Loperamide HCl (Imodium) 2 mg PO Q4H PRN PRN PRN Reason: LOOSE STOOLS Methocarbamol (Methocarbamol) 1,500 mg PO Q6H PRN PRN PRN Reason: MUSCLE SPASM Last Admin: 07/22/19 04:09 Dose: 1,500 mg Documented by: Nicotine (Nicoderm Cq (Pbkc)) 21 mg TRANSDERM. DAILY ANJELICA Last Admin: 07/21/19 12:07 Dose: Not Given Documented by: Ondansetron HCl (Zofran) 8 mg PO Q8H PRN PRN PRN Reason: NAUSEA Sodium Chloride () 10 - 40 ml IV UD PRN PRN Reason: SALINE FLUSH Throat Lozenges (Cepacol Sore Throat Lozenge) 1 lozenge MUCOUS MEM Q2H PRN PRN PRN Reason: SORE THROAT Last Admin: 07/22/19 07:02 Dose: 1 lozenge Documented by: Trazodone HCl (Desyrel) 100 mg PO QHS PRN PRN PRN Reason: INSOMNIA Last Admin: 07/21/19 23:44 Dose: 100 mg Documented by: STROKE Vital Signs/Narrative: Vital Signs Temp Pulse Resp BP Pulse Ox 07/22/19 04:05 97.9 F 70 16 120/70 97 Medical Necessity - Tobacco Use Smoking Status: Current every day smoker Tobacco Use: Cigarettes Assessment/Plan All Active Problems Acute opioid withdrawal (Acute) The patient is a 39 y/o F w/ PMHx: Hepatitis C, Depression and Anxiety, Hx Ovarian CA, Polysubstance abuse with IVDA noted to been clean for approximately 4 years with relapse approximately 2 weeks prior with resumption of IV heroin usage of approximately 0.5 to 1 mg daily with the last approximately 4 PM prior to ED presentation with onset acute opiate withdrawal. 1. Acute Opiate Withdrawal with new onset sore throat concurrently in addition to withdrawal symptoms (abdominal cramping, nausea, myalgias, arthralgias, chills): Initially admitted to the medical surgical floor however patient transitioned to the COVID unit given onset of sore throat and difficulty assessing symptoms given withdrawal symptoms similar to coronavirus symptoms although never had any cough nor dyspnea, initial ED presentation labs unremarkable including hepatic profile, urine drug screen with positive opiates, cocaine and cannabis, alcohol less than 3, given transition to the COVID unit will request coronavirus testing, CRP, ferritin, LDH, procalcitonin as well as rapid strep throat and respiratory viral panel in addition to trending of CBC and CMP to be cautious. We will continue patient on tapering course of Subutex as well as PRN agents for symptom control. Case management already involved for ongoing assistance with transition to the next level of care. Patient would benefit from not returning to her current living situation as her uncle is the individual supplying her with drugs. 2. Polysubstance Abuse, IVDA Hx, History of Hepatitis C, Chronic: Patient currently not candidate for hep C treatment currently as needs to be clean, sober x 6 months, documented attendance NA or AA meetings, counseling and ongoing negative drug screens. Once appropriate GI, ID to initiate. 3. Tobacco Abuse: Encouraged cessation, inpatient consultation per RT, NR if desired. 4. History of ovarian cancer: Status post hysterectomy and bilateral salpingo- oophorectomy as well as chemotherapy, in remission, stable. 5. Anxiety and depression: Not on regimen but given this presentation and resumption of IV drug abuse may be appropriate for outpatient therapy and resumption of medications. 6. DVT prophylaxis: Low risk and low suspicion for COVID. Inpatient E&M: 02607 Subs Hosp L3
--- NOTE | 2019-07-22 10:05 | RAD_ITS ---
STUDY: X-RAY CHEST REASON FOR EXAM: Female, 39 years old. SORE THROAT, COUGH -- ACUTE OPOID WITHDRAWAL TECHNIQUE: Single AP portable view of the chest. COMPARISON: None. FINDINGS: The lungs are clear and expanded. Scattered calcified granulomas. There is no demonstrated pleural abnormality. Normal size heart. Normal mediastinum and marion. Normal visualized pulmonary arteries. Normal visualized aortic arch and descending thoracic aorta. Normal visualized thoracic spine. Normal visualized ribs, clavicles, and shoulders. There is no demonstrated abnormality of the visualized soft tissue structures of the upper abdomen. RAD/Chest 1 View (Portable) IMPRESSION: Normal x-ray examination of the chest. Electronically Signed: Gael Palumbo, at 10:21 EDT , Service support ,
[2019-07-22 10:23] VITALS: BP 104/61; PULSE 67; RESP 18; TEMP 36.9; O2SAT 97
[2019-07-22] MEDS: hydrOXYzine PAM 25 MG Capsule 50 MG PO ×2 (10:49→20:39)
[2019-07-22] MEDS: Dicyclomine 10 MG Capsule 20 MG PO (10:49)
[2019-07-22] MEDS: Ondansetron 8 MG Tablet PO (10:51)
--- NOTE | 2019-07-22 11:11 | CPS ---
Patient swabbed for respiratory panel at 10:25 07/22/2019. COVID swab ordered after panel swab was obtained. Called [facility] and asked if they could use respiratory panel swab for COVID also. Leesa from [facility] stated they could.
[2019-07-22 12:38] LABS: Ferritin 57 ng/mL (8-252); LDH 200 U/L (84-246); Magnesium 1.9 mg/dL (1.6-2.6)
[2019-07-22 12:46] LABS: Procalcitonin 0.08 ng/mL (0.00-0.09)
[2019-07-22 14:05] VITALS: BP 111/78; PULSE 71; RESP 16; TEMP 36.9; O2SAT 97
[2019-07-22 18:00] VITALS: BP 127/71; PULSE 79; RESP 16; TEMP 36.7; O2SAT 98
[2019-07-22 20:19] VITALS: BP 111/61; PULSE 71; RESP 18; TEMP 37.7; O2SAT 97
[2019-07-22] MEDS: Penicillin Vk 250 MG Tablet 500 MG PO (20:39)
[2019-07-22] MEDS: Acetaminophen 500 MG Tablet PO (20:39)
[2019-07-23] MEDS: Penicillin Vk 250 MG Tablet 500 MG PO ×2 (00:05→05:23)
[2019-07-23] MEDS: traZODone 100 MG Tablet PO (00:16)
[2019-07-23] MEDS: BENZOCAINE/MENTHOL 1 LOZENGE MUCOUS MEM (00:16)
[2019-07-23] MEDS: Buprenorphine HCl 2 MG TAB.SUBL SL (03:10)
[2019-07-23 03:12] VITALS: BP 117/69; PULSE 72; RESP 16; TEMP 36.4; O2SAT 94
[2019-07-23 05:40] LABS: Absolute Lymphocyte Count 2.42 X10^3/uL (0.83-4.51); Absolute Neutrophil Count 3.9 X10^3/uL (2.0-7.7); Basophil# 0.03 X10^3/uL; Basophil% 0.4 % (0-1); Eosinophil# 0.33 X10^3/uL; Eosinophils% 4.4 % (0-5); Hematocrit 38.1 % (37-47); Hemoglobin 12.4 g/dL (12.0-15.0); Lymphocyte # 2.42 X10^3/ul (4.0); Lymphocyte % 32.4 % (19-41); Mean Corp Hgb Conc 32.5 g/dL (32-36); Mean Corpuscular Hgb 30.3 pg (27.0-32.0); Mean Corpuscular Volume 93.2 fL (81-99); Mean Platelet Vol. 9.6 fl (6.2-12.0); Monocyte# 0.75 X10^3/uL; Monocyte% 10.1 % (0-10); NRBC Flagged by Analyzer 0 % (0-5); Neutrophil # 3.91 X10^3/uL (2.7-7.7); Neutrophil % 52.4 % (47-70); POSITIVE COUNT YES; Platelet Count 189 K/mm3 (150-450); RBC Distribution Width CV 13.2 % (11.6-14.6); RBC Distribution Width SD 44.8 fl (35.1-43.9); Red Blood Count 4.09 M/mm3 (4.2-5.4); White Blood Count 7.5 K/mm3 (4.4-11.0)
[2019-07-23 05:44] LABS: Differential Indicated SCAN CRITERIA MET
[2019-07-23 05:54] LABS: ALB/GLOB Ratio 0.7 RATIO (0.9-2.4); AST(SGOT) 27 U/L (15-37); Alanine Aminotransfer ALT/SGPT 30 U/L (13-56); Albumin, Serum 2.7 g/dL (3.2-5.0); Alkaline Phosphatase 53 U/L (45-117); Anion Gap 6 (5-15); BUN 14 mg/dL (7-18); BUN/Creat Ratio 20.6 RATIO (10-20); Calcium,Total 8.1 mg/dL (8.5-10.1); Chloride 107 mmol/L (98-107); Creatinine, Serum 0.68 mg/dL (0.55-1.02); EST Glomerular Filtration Rate 102 mL/min (>60); Est Glom Filt Rate - Afr Amer 123 mL/min (>60); Estimated Creatinine Clearance 98.04 ml/min; Glucose 91 mg/dL (74-106); Potassium 3.9 mmol/L (3.5-5.1); Protein, Total 6.7 g/dL (6.4-8.2); Sodium Level 139 mmol/L (136-145)
[2019-07-23 05:59] LABS: Differential Comment SCANNED
--- NOTE | 2019-07-23 08:17 | DCINST_ITS ---
- Discharge Diagnoses Current Active Problems: 1. Acute Opiate Withdrawal 2. Acute Strep pharyngitis 3. Rule out COVID 4. Polysubstance Abuse, IVDA Hx, History of Hepatitis C, Chronic 5. Tobacco Abuse 6. History of ovarian cancer 7. Anxiety and depression You will use the following diet at home:: No restrictions Your food should be the consistency of: Regular Your liquids should be the consistency of: Regular/Thin Discharge Activity: - - Encourage regular activity in the home; however, must maintain quarantine parameters until COVID testing resulted although in your case it is low suspicion. Weight Bearing Status: Weight bearing as tolerated Call your doctor if you observe: Fever of 101 or Higher, Inability to urinate, Inability to have a bowel movement, Shortness of breath, Dizziness, Fainting spells, Chest pain, Uncontrolled pain Instructions: ED Abuse Narcotic, Strep Throat Additional Instructions: Home going instructions: ?Patient to continue similar isolation as in hospital and those also in the home to continue precautions until isolation complete or if COVID-19 testing is negative. ?Patient must continue twice daily temperature checks, in the AM and evening and notify the health department of any changes (If COVID-19 positive or their primary care if pending testing). Transmission-based Precaution Timeline: ?Patients with a confirmed or high suspicion of COVID-19 should remain under home isolation precautions for 7 days or until 72 hours after complete resolution of fever and symptoms (cough, dyspnea, myalgia, sore throat) without antipyretic medication. ?Further testing is not required beyond this unless there was noted organ dysfunction. ?If COVID-19 testing is pending upon discharge, [facility] will contact them if the result is positive. Hospital will call you if it is negative. Follow-up Care: ?The primary care should be informed of a COVID-19 positive test if resulted while in the hospital, otherwise Infection Control may need to be the individual to notify their physician. ?Please consider early virtual primary visit follow-up upon their discharge and follow-up to review temperature journal and symptom review. ADDITIONAL FOLLOW-UP: (1) Please continue plan of care with 180 although may need to be virtual until COVID testing resulted. (2) Complete strep throat treatment. Allergies/Adverse Reactions: Allergies No Known Allergies Allergy (Verified 07/20/19 13:04) Medications to take at Discharge Penicillin Vk [Pen-Vee K 250MG] 500 mg PO TID 9 Days #27 tab 07/23/19 The following prescriptions were given: Penicillin Vk [Pen-Vee K 250MG] 500 mg PO TID 9 Days #27 tab Transmission Status: Pending to [facility] Primary Care Physician: Veronica Doctor,Out of [NON-STAFF] - Please follow up with your Primary Care Physician in: Please follow-up with PCP within 3-5 days, may need to be virtual. Test Results: Test results from this visit will be discussed in further detail at your follow- up appointment, if applicable. Please Follow Up With: [facility] When: Please continue follow-up with [facility]. May need to be virtual. Proposed Discharge Date: 07/23/19
--- NOTE | 2019-07-23 08:23 | DS.PCM_ITS ---
Discharge Date and Diagnosis Date of Admission: 07/20/19 Date of Discharge: 07/23/19 - Primary Discharge Diagnosis 1. Acute Opiate Withdrawal 2. Acute Strep pharyngitis 3. Rule out COVID pending at discharge 4. Polysubstance Abuse, IVDA Hx, History of Hepatitis C, Chronic 5. Tobacco Abuse 6. History of ovarian cancer 7. Anxiety and depression - Secondary Discharge Diagnosis Chronic Problems Hepatitis C (Chronic) Depression (Chronic) Nicotine abuse (Chronic) Hx of ovarian cancer (Chronic) Hospital Course and Treatment Operations: None Procedures: None Summary of Care Provided: The patient is a 39 y/o F w/ PMHx: Hepatitis C, Depression and Anxiety, Hx Ovarian CA, Polysubstance abuse with IVDA noted to been clean for approximately 4 years with relapse approximately 2 weeks prior with resumption of IV heroin usage of approximately 0.5 to 1 mg daily with the last approximately 4 PM prior to [facility] ED presentation on 07/20/19 with onset acute opiate withdrawal. Initially admitted to the medical surgical floor however patient transitioned to the COVID unit given onset of sore throat and difficulty assessing symptoms given withdrawal symptoms similar to coronavirus symptoms although never had any cough nor dyspnea, initial ED presentation labs unremarkable including hepatic profile, urine drug screen with positive opiates, cocaine and cannabis, alcohol less than 3. Patient transitioned to the COVID unit, requested coronavirus testing, ferritin 57, lactate dehydrogenase 200, CRP 36.10, pro calcitonin 0.08.given severity of sore throat with erythema rapid strep obtained and was positive. Patient initiated on penicillin which was also continued upon discharge. For patient acute withdrawal treatment from opiates she was continued on tapering course of Subutex. Case management consultation continued with assistance for transition to next level of care with 180. Patient per discussion will not be returning to live with her uncle who has been supplying her drugs. Patient does have a history of hepatitis C and noted that she needs to be clean, sober x6 months with documented attendance for NA or AA meetings with counseling ongoing negative drug screens to be a candidate for treatment. Encouraged continued PCP follow-up to be able to transition to GI and ID evaluation for treatment if appropriate. Patient stable for discharge on low suspicion for COVID however given pending test discussed that she would need to self quarantine and we would contact her with results if negative and that [facility] would contact her if she was positive. Discharge instructions for COVID precautions and home care were given. Patient prescription for penicillin was sent to the [facility] pharmacy and delivered prior to her discharge from the hospital. DAY OF DISCHARGE PROGRESS NOTE: Subjective: Patient without acute event overnight per self and nursing report. Patient still notes feeling poorly although withdrawal symptoms are improving with less abdominal cramping, some nausea but no emesis, no fever or chills recurrence, ongoing sore throat with some difficulty swallowing but improving. She denies any cough or dyspnea. Patient agreeable to discharge to her aunt's care with continued outpatient follow-up with 180 once clarification on COVID status. Patient will be discharged with follow-up with primary care physician establishment within 3 to 5 days as well as continue with 180 evaluation especially once COVID status obtained. Objective: T 98.2, heart rate 75, BP 115/65, respiratory rate 18, 95% on room air. Physical Examination: General: awake, alert, oriented x 3 and cooperative, seated upright in the ICU bed in no apparent distress but notes still feeling some withdrawal symptoms and having a sore throat although less intense with some difficulty swallowing. Skin: normal color, turgor, no icterus, cyanosis except occasional scars and most recent insertion sites with no obvious infection or erythema. HEENT: AT/NC, EOMI, PERRLA, moderately dry MM, still mild erythema, exudate. Lungs: CTA bilaterally, moderate effort, mild decrease BL bases, no rales, ronchi or wheezing. Heart: Regular rate and rhythm; no gallop, rub audible. Abdomen: soft, NTTP, ND, normal BS. Extremities: no cyanosis, clubbing, or edema. Neurological: patient awake, alert, oriented x 3; cognitive function appears baseline intact; pupils equally reactive to light and accomodation; cranial nerves II-XII grossly normal, moving all 4 extremities, no focal deficits, strength moderately global decrease secondary to withdrawal and strep pharyngitis. Psychiatric: affect appears fatigued but otherwise normal, no acute evidence of depressive or anxiety feelings. Assessment and Plan: Please see hospital summary above. - Physical Exam Vitals/I&O's: Vital Signs Temp Pulse Resp BP Pulse Ox 97.5 F L 72 16 117/69 94 07/23/19 03:12 07/23/19 03:12 07/23/19 03:12 07/23/19 03:12 07/23/19 03:12 Oxygen Delivery Method Room Air Weight: 124 lb 8 oz Body Mass Index (BMI) 20.0 Intake and Output for Last 24 Hours 07/21/19 07/22/19 07/23/19 23:59 23:59 23:59 Intake Total 780 / 780 640 / 640 100 / 100 Output Total 300 / 300 Balance 780 / 780 340 / 340 100 / 100 Microbiology Past 72 Hours 07/22/19 15:30 Urine, Random Legionella Antigen - Final 07/22/19 15:31 Urine, Random Streptococcus pneumoniae Antigen (M - Final 07/22/19 10:25 Mucosa - Nasopharyngeal Respiratory Panel (PCR) - Final 07/22/19 12:05 Mucosa - Throat Group A Streptococcus Rapid Screen - Final Streptococcus Group A Laboratory Results 07/22/19 10:25: COVID-19 (MADELYN) Pending 07/22/19 12:05: Magnesium 1.9, Ferritin 57, Lactate Dehydrogenase 200, C-React Prot Ext Range 36.10 H 07/22/19 12:05: Procalcitonin 0.08 07/23/19 05:30: WBC 7.5, RBC 4.09 L, Hgb 12.4, Hct 38.1, MCV 93.2, MCH 30.3, MCHC 32.5, RDW Std Deviation 44.8 H, RDW Coeff of Ollie 13.2, Plt Count 189, MPV 9.6, Immature Gran % (Auto) 0.300, Neut % (Auto) 52.4, Lymph % (Auto) 32.4, [place] % (Auto) 10.1 H, Eos % (Auto) 4.4, Baso % (Auto) 0.4, Absolute Neuts (auto) 3.9, Absolute Lymphs (auto) 2.42, Nucleated RBC % 0, Differential Comment SCANNED 07/23/19 05:30: Sodium 139, Potassium 3.9, Chloride 107, Carbon Dioxide 26.0, Anion Gap 6, BUN 14, Creatinine 0.68, Estim Creat Clear Calc 98.04, Est GFR (MDRD) Af Amer 123, Est GFR (MDRD) Non-Af 102, BUN/Creatinine Ratio 20.6 H, Glucose 91, Calcium 8.1 L, Total Bilirubin 0.20, AST 27, ALT 30, Alkaline Phosphatase 53, Total Protein 6.7, Albumin 2.7 L, Globulin 4.0, Albumin/Globulin Ratio 0.7 L Current Medications Acetaminophen (Tylenol) 500 mg PO Q4H PRN PRN PRN Reason: Temp > 100.4 F Last Admin: 07/22/19 20:39 Dose: 500 mg Documented by: Al Hydroxide/Mg Hydroxide (Mylanta Ii) 30 ml PO Q6H PRN PRN PRN Reason: dyspesia Buprenorphine HCl (Buprenorphine Hcl) 2 mg SL Q12H ANJELICA; Taper Stop: 07/23/19 15:29 Last Admin: 07/23/19 03:10 Dose: 2 mg Documented by: Clonidine (Catapres) 0.1 mg PO Q8H PRN PRN PRN Reason: RESTLESSNESS Last Admin: 07/22/19 07:01 Dose: 0.1 mg Documented by: Dicyclomine HCl (Bentyl) 20 mg PO Q6H PRN PRN PRN Reason: Abdominal Discomfort Last Admin: 07/22/19 10:49 Dose: 20 mg Documented by: Gabapentin (Neurontin) 300 mg PO Q8H PRN PRN PRN Reason: moderate to severe anxiety Last Admin: 07/21/19 15:48 Dose: 300 mg Documented by: Hydroxyzine Pamoate (Vistaril Pamoate Capsule) 50 mg PO Q6H PRN PRN PRN Reason: mild anxiety Last Admin: 07/22/19 20:39 Dose: 50 mg Documented by: Ibuprofen (Motrin) 600 mg PO Q8H PRN PRN PRN Reason: Pain Score 1-10/10 Last Admin: 07/22/19 07:01 Dose: 600 mg Documented by: Loperamide HCl (Imodium) 2 mg PO Q4H PRN PRN PRN Reason: LOOSE STOOLS Methocarbamol (Methocarbamol) 1,500 mg PO Q6H PRN PRN PRN Reason: MUSCLE SPASM Last Admin: 07/22/19 10:49 Dose: 1,500 mg Documented by: Nicotine (Nicoderm Cq (Pbkc)) 21 mg TRANSDERM. DAILY ANJELICA Last Admin: 07/22/19 10:36 Dose: Not Given Documented by: Ondansetron HCl (Zofran) 8 mg PO Q8H PRN PRN PRN Reason: NAUSEA Last Admin: 07/22/19 10:51 Dose: 8 mg Documented by: Penicillin V Potassium (Pen-Vee K , V-Cillin K) 500 mg PO Q6 ANJELICA Last Admin: 07/23/19 05:23 Dose: 500 mg Documented by: Sodium Chloride () 10 - 40 ml IV UD PRN PRN Reason: SALINE FLUSH Throat Lozenges (Cepacol Sore Throat Lozenge) 1 lozenge MUCOUS MEM Q2H PRN PRN PRN Reason: SORE THROAT Last Admin: 07/23/19 00:16 Dose: 1 lozenge Documented by: Trazodone HCl (Desyrel) 100 mg PO QHS PRN PRN PRN Reason: INSOMNIA Last Admin: 07/23/19 00:16 Dose: 100 mg Documented by: Discharge Activity: - - Encourage regular activity in the home; however, must maintain quarantine parameters until COVID testing resulted although in your case it is low suspicion. Weight Bearing Status: Weight bearing as tolerated Call your doctor if you observe: Fever of 101 or Higher, Inability to urinate, Inability to have a bowel movement, Shortness of breath, Dizziness, Fainting spells, Chest pain, Uncontrolled pain Home Medications: Medications to take at Discharge Penicillin Vk [Pen-Vee K 250MG] 500 mg PO TID 9 Days #27 tab 07/23/19 Following Prescrptions Were Given to Patient: Penicillin Vk [Pen-Vee K 250MG] 500 mg PO TID 9 Days #27 tab Transmission Status: Received by [facility] Primary Care Physician: [facility] Doctor,Out of [NON-STAFF] - Please follow up with your Primary Care Physician in: Please follow-up with PCP within 3-5 days, may need to be virtual. Please Follow Up With: 180 When: Please continue follow-up with 180. May need to be virtual. Patient Instructions: Strep Throat, ED Abuse Narcotic Disposition: Home Minutes spent on discharge:: 35 Patient Condition:: Fair Medical Necessity - Tobacco Use Smoking Status: Current every day smoker Tobacco Use: Cigarettes Meaningful Use Info Meaningful Use Diagnoses (Choose all that apply): None applicable Inpatient E&M: 92515 Disch Hosp
[2019-07-23 09:00] VITALS: BP 115/65; PULSE 75; RESP 18; TEMP 36.8; O2SAT 95
[2019-07-24 13:42] VITALS: BP 152/97; PULSE 86; RESP 16; TEMP 37.2; O2SAT 97
--- NOTE | 2019-07-25 20:37 | NURSING ---
This RN attempted to call pt via phone number listed to notify her of negative COVID result. Recording stating that number is not in service.
== END 2019-07-23 12:40 | disposition home or self-care (01) | DRG 773 ==
LOC: ED 13:30 → PCU 07-21 06:12 → MS3 07-22 07:48 → ICU 10-18 09:10 → MS3 10-18 09:10 → PCU 10-18 09:10
PROVIDERS: Admitting Provider Hospitalist; Emergency Provider Emergency Medicine; Visit Provider Family Medicine
DX: F11.23 Opioid dependence with withdrawal (principal); J02.0 Streptococcal pharyngitis; B18.2 Chronic viral hepatitis C; F17.210 Nicotine dependence, cigarettes, uncomplicated; Z85.43 Personal history of malignant neoplasm of ovary; Z90.710 Acquired absence of both cervix and uterus; Z92.21 Personal history of antineoplastic chemotherapy; F32.9 Major depressive disorder, single episode, unspecified; F41.9 Anxiety disorder, unspecified
CPT/HCPCS: 71045; 80053; 80307; 80320; 82728; 83615; 83735; 84145; 84703; 85025; 86140; 87449; 87633; 87635; 87880; 99282; H0012; J7030; A4216; G0480; U0004

== ENCOUNTER 2019-10-27 07:52 | Observation (INO) | payer MEDICAID, SELFPAY ==
[2019-10-27] VITALS (8 sets, daily range): BP systolic 135–151; BP diastolic 79–107; PULSE 77–107; RESP 16–18; TEMP 36.6–36.9; O2SAT 98–99; BMI 16.1; BMI 17.7; BMI 17.8
--- NOTE | 2019-10-27 08:09 | EKG12_ITS ---
Test Reason : SUBSTANCE ABUSE Blood Pressure : / mmHG Vent. Rate : 073 BPM Atrial Rate : 073 BPM P-R Int : 136 ms QRS Dur : 090 ms QT Int : 376 ms P-R-T Axes : 067 085 078 degrees QTc Int : 414 ms Normal sinus rhythm Normal ECG Confirmed by ASTRID RIZZO, DANILO ([id number]), editor book MATT CONNER ([id number]) on 11/02/2019 8:47:08 AM Referred By: RANDAL Confirmed By:DANILO RESENDIZ MD
--- NOTE | 2019-10-27 08:10 | RAD_ITS ---
STUDY: X-RAY CHEST REASON FOR EXAM: Female, 39 years old. COUGH X SEVERAL WEEKS TECHNIQUE: Single AP portable view of the chest. COMPARISON: Comparison is made with prior study dated 07/22/2019. FINDINGS: There now is evidence of increased markings in the medial aspect of the right lung base. Early infiltrate should be ruled out. Follow-up is recommended. There is no demonstrated pleural abnormality. Normal size heart. Normal mediastinum and marion. Normal visualized pulmonary arteries. Normal visualized aortic arch and descending thoracic aorta. Normal visualized thoracic spine. Normal visualized ribs, clavicles, and shoulders. There is no demonstrated abnormality of the visualized soft tissue structures of the upper abdomen. RAD/Chest 1 View (Portable) IMPRESSION: Increased markings are seen in the medial aspect of the right lung base. Follow-up is recommended. Electronically Signed: Gael Palumbo, at 9:53 EDT , Service support ,
--- NOTE | 2019-10-27 08:12 | ED.VIS.GEN ---
History of Present Illness Chief Complaint: Substance Abuse Informant: Patient Narrative: Patient is a 39-year-old female who presents to the emergency department for detoxification from heroin use. She states that she is been using this on and off for the past 15 years. She has gone through withdrawal before in the past. She was doing well until 5 months ago whenever her daughter . Last time she used was yesterday. She does inject. She does smoke cigarettes. Denies any other alcohol or drug abuse. Patient states that she feels like she is crawling out of her skin, has tremors, and sweats. She has gone through detox here before in the past. Her other complaint is a cough and concern for pneumonia. She has had pneumonia before in the past. Her cough has been present over the past 2 weeks. She denies any fevers or chills. Her cough has been productive of sputum. No significant chest pain. Mild shortness of breath. No swelling in her legs or pain in her cast. No abdominal pain or diarrhea. No vomiting. No rashes. No known exposures to coronavirus. Past Medical History - Allergies and Home Meds Allergies/Adverse Reactions: Allergies No Known Allergies Allergy (Verified 10/27/19 07:52) Surgical History: hysterectomy, - - section, bilateral salpingo-oophorectomy Smoking Status: Current every day smoker - Family History Maternal Family History: Reports: No pertinent history Paternal Family History: Reports: No pertinent history Sibling Family History: Reports: No pertinent history Review of Systems All systems negative except as indicated General: Reports: Sweats. Denies: Fever Eyes: Denies: Visual changes - bilaterally, Diplopia ENT: Denies: Rhinorrhea, Sore throat Cardiovascular: Denies: Chest pain, Palpitations Respiratory: Reports: Dyspnea, Cough Gastrointestinal: Denies: Abdominal pain, Nausea, Vomiting, Diarrhea Genitourinary: Denies: Dysuria, Hematuria, Frequency Musculoskeletal: Denies: Back pain, Extremity Pain Skin: Denies: Rash, Wounds Neurological: Denies: Headache, Weakness, Numbness Physical Exam Vital Signs/Narrative: Vital Signs Temp Pulse Resp BP Pulse Ox 10/27/19 07:55 97.8 F 96 18 151/107 H 99 10/27/19 07:53 97.8 F 96 18 151/107 H 99 Inital Vital Signs reviewed: Yes General: Well nourished, Well developed, No Acute Distress Head: Normocephalic, Atraumatic Eyes: Perrl, EOMI ENT: Moist mucous membranes, No rhinorrhea Neck: Supple, Nontender Cardiovascular: Regular rate, Regular rhythm, No murmurs Respiratory: No distress, CTA bilaterally, Chest nontender, Rhonchi - Right-sided Abdomen: Soft, Nontender, Nondistended, Normal bowel sounds Back: Nontender, Normal Inspection Extremities: Nontender, No edema Skin: Normal color, No rash Neurological: Alert, Oriented x3, Cranial nerves II-XII grossly intact, Normal Strength, Normal Sensation Psychological: Normal Mood, - - Patient does appear mildly anxious. Diagnostic/Tx/Re-eval - EKG Initial EKG Interpretation: - - Rate of 73 bpm and normal sinus rhythm. Normal intervals. Normal axis. No ST elevations or depressions appreciated. No T wave abnormalities. No prior EKG for comparison. - Medical Decision Making Patient presents to the emerge department for request to detox from heroin. She is also had a cough that she wants worked up. She is concerned for pneumonia. Upon arrival to the emerge department all signs within normal limits. She is afebrile. Satting well on room air. She is not tachycardic. Will do work-up along with coronavirus test. Lab work did not reveal any significant acute abnormality. No leukocytosis. COVID screen was negative. X-ray was comparable to her previous x-ray earlier this year. We will hold off on antibiotics for pneumonia. She was given a breathing treatment in the emergency department. Case discussed with hospitalist and they are willing to bring the patient in despite her having failed detox multiple times before in the past. Patient states that she does want to take this seriously this time. She otherwise has been stable throughout ED stay. ED Disposition - Plan for ED Patient: Disposition: Acute Care Hospital [facility] Diagnosis: Substance abuse, Cough
--- NOTE | 2019-10-27 08:25 | NURSING ---
NO OLD EKGS
[2019-10-27 08:50] LABS: Amphetamine Urine VISTA NEGATIVE (<1000 ng/mL); Barbiturate Urine VISTA NEGATIVE (< 200 ng/mL); Benzodiazepine Urine VISTA NEGATIVE (< 200 ng/mL); Cocaine Urine VISTA NEGATIVE (< 300 ng/mL); Ecstacy Urine VISTA NEGATIVE (< 500 ng/mL); Methadone Urine VISTA NEGATIVE (< 300 ng/mL); PCP Urine VISTA NEGATIVE (< 25 ng/mL); THC Urine VISTA NEGATIVE (< 50 ng/mL); Vista UDS pH Range 6
--- NOTE | 2019-10-27 08:59 | ED.RN ---
unable to get lab speciman and lab up to draw
[2019-10-27 09:25] LABS: Absolute Lymphocyte Count 2.42 X10^3/uL (0.83-4.51); Basophil# 0.04 X10^3/uL; Basophil% 0.6 % (0-1); Eosinophils% 1.4 % (0-5); Hematocrit 37.4 % (37-47); Hemoglobin 12.2 g/dL (12.0-15.0); Lymphocyte # 2.42 X10^3/ul (4.0); Lymphocyte % 33.8 % (19-41); Mean Corp Hgb Conc 32.6 g/dL (32-36); Mean Corpuscular Hgb 28.4 pg (27.0-32.0); Mean Platelet Vol. 8.9 fl (6.2-12.0); Monocyte# 0.61 X10^3/uL; Monocyte% 8.5 % (0-10); NRBC Flagged by Analyzer 0 % (0-5); Neutrophil # 3.98 X10^3/uL (2.7-7.7); Neutrophil % 55.4 % (47-70); Platelet Count 281 K/mm3 (150-450); RBC Distribution Width CV 13.9 % (11.6-14.6); RBC Distribution Width SD 43.8 fl (35.1-43.9); White Blood Count 7.2 K/mm3 (4.4-11.0)
[2019-10-27 09:29] LABS: ALB/GLOB Ratio 0.7 RATIO (0.9-2.4); AST(SGOT) 14 U/L (15-37); Alanine Aminotransfer ALT/SGPT 25 U/L (13-56); Albumin, Serum 3.2 g/dL (3.2-5.0); Alkaline Phosphatase 67 U/L (45-117); Anion Gap 5 (5-15); BUN 11 mg/dL (7-18); BUN/Creat Ratio 12.9 RATIO (10-20); Calcium,Total 8.7 mg/dL (8.5-10.1); Chloride 109 mmol/L (98-107); Creatinine, Serum 0.86 mg/dL (0.55-1.02); EST Glomerular Filtration Rate 78 mL/min (>60); Est Glom Filt Rate - Afr Amer 94 mL/min (>60); Estimated Creatinine Clearance 62.27 ml/min; Globulin 4.7 g/dL (2.2-4.2); Glucose 94 mg/dL (74-106); Potassium 3.6 mmol/L (3.5-5.1); Protein, Total 7.9 g/dL (6.4-8.2); Sodium Level 140 mmol/L (136-145)
[2019-10-27 09:39] LABS: Internal QC Validated? YES +Cl - CLEAR BKGD; Pregnancy, Serum, hCG Quali. NEGATIVE Negative
--- NOTE | 2019-10-27 10:56 | ED.RN ---
ramp consent and rules went over and pt agreeable and consent signed. waiting on hospitalist and covid testing for admission
--- NOTE | 2019-10-27 10:56 | NURSING ---
dr goodwin for dr trujillo
--- NOTE | 2019-10-27 11:10 | HP.PCM_ITS ---
Problem List (1) Asthma Status: Chronic (2) Acute opioid withdrawal Status: Acute (3) Hepatitis C Status: Chronic (4) Depression Status: Chronic (5) Nicotine abuse Status: Chronic (6) Hx of ovarian cancer Status: Chronic History of Present Illness Date of Admission: 10/27/19 Chief Complaint: Acute opiate withdrawal requesting detoxification. The patient is a 39 year old F with past medical history as mentioned above presented to the emergency room requesting admission for acute opioid withdrawal for medical stabilization. Patient had a history of opioid abuse, was admitted twice in the past for medical stabilization but she relapsed. Last admission for detoxification was back on June,, patient was discharged and she has been following up with the [facility] program. 1 month ago, her daughter and she started using opioids again. She mentioned that she has been using IV opioids, either IV heroin or fentanyl, she is not sure and she said she does not know what is in there. Her last use was last night. Her symptoms today including anxiety, restlessness, associated with tremors and abdominal cramps as well as nausea and without aggravating or relieving factors. She complains of skin crawling and cold sweats. She complained of dry cough which has been going on for the last couple of days associated with shortness of breath and wheezing. She denies fever or chills. She does have a history of asthma. In the emergen cy department, her blood pressure was slight elevated, other vital signs were stable. Routine blood work was unremarkable. LFT was normal. Serum was negative. Urine drug screen was positive for opioids. Blood alcohol level was 5. Chest x-ray revealed right base atelectasis, I doubt pneumonia. She is being admitted for acute opioid withdrawal for medical stabilization as well as mild asthma exacerbation. 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 Denies: Chills, Fever, Weakness Eyes: Denies: Blurred vision, Double vision, Drainage, Eyelid Inflammation, Redness HEENT: Denies: Ear Pain, Eye Pain, Nasal Congestion, Sore Throat Cardiovascular: Denies: Chest Pain, Chest Pressure, Chest Tightness, Heaviness, Light Headedness, Palpitations, Syncope Respiratory: Reports: Cough, Shortness of Breath, Wheezing. Denies: Sputum production Gastrointestinal: Reports: Nausea. Denies: Constipation, Diarrhea, Vomiting Genitourinary: Denies: Dysuria, Frequency, Hematuria Musculoskeletal: Denies: Arm Pain, Back Pain, Foot Pain Skin: Denies: Dryness, Rash Neurological: Reports: Tremor. Denies: Balance problems, Double vision, Change in Speech, Slurred speech, Headaches, Incoordination, Numbness Psychiatric: Reports: Depression. Denies: Anxiety Endocrine: Denies: Change in Body Habitus, Polydipsia, Polyuria VTE Information - Inpt Only VTE Present on Admission: No VTE Mechan Device Prophylaxis: None VTE Pharm Prophylaxis ordered?: No - Physical Exam Vitals/I&O's: Vital Signs Temp Pulse Resp BP Pulse Ox 97.8 F 96 18 151/107 H 99 10/27/19 07:55 10/27/19 07:55 10/27/19 07:55 10/27/19 07:55 10/27/19 07:55 Weight: 100 lb Body Mass Index (BMI) 16.1 General: Alert, Oriented x3, Cooperative, - - Anxious, restless. HEENT: Atraumatic, PERRLA, EOMI, Normocephalic Oral: Moist Mucosa, No Gingival or Mucosal Lesions/ Ulcerations Neck: Supple, No JVD, Negative Carotid Bruits, Trachea Midline, Thyroid Normal Size and Texture Lungs: No rhonchi, No rales, Diminished, Wheezes, - - Decreased breath sounds bilateral, bilateral expiratory wheezes. Cardiovascular: Regular rate, Regular Rhythm, Normal S1, Normal S2, PMI Normal Abdomen: Bowel Sounds Present, Soft, Non Tender, Non-Distended, No Hepato- splenomegaly Extremities: No clubbing, No cyanosis, No edema Skin: No rashes, No breakdown Lymphatic: No Cervical, Supraclavicular, or Inguinal Adenopathy Neurological: Cranial nerves II-XII grossly intact, Motor Exam 5/5 strength throughout Psych/Mental Status: Anxious, Impulsive, Restless, Alert and oriented to time, place, person, mood and affect Laboratory Results 10/27/19 08:17: Urine Opiates Screen POSITIVE H, Urine Methadone Screen NEGATIVE, Ur Barbiturates Screen NEGATIVE, Ur Phencyclidine Scrn NEGATIVE, Ur Amphetamines Screen NEGATIVE, U Methamphetamin-MDMA NEGATIVE, U Benzodiazepines Scrn NEGATIVE, Urine Cocaine Screen NEGATIVE, U Cannabinoids Screen NEGATIVE, Ur Drug Screen Comment 10/27/19 08:33: COVID-19 (MADELYN) Negative 10/27/19 09:00: Ethyl Alcohol 5.0 10/27/19 09:00: Serum , Qual NEGATIVE 10/27/19 09:00: WBC 7.2, RBC 4.30, Hgb 12.2, Hct 37.4, MCV 87.0, MCH 28.4, MCHC 32.6, RDW Std Deviation 43.8, RDW Coeff of Ollie 13.9, Plt Count 281, MPV 8.9, Immature Gran % (Auto) 0.300, Neut % (Auto) 55.4, Lymph % (Auto) 33.8, Wallace % (Auto) 8.5, Eos % (Auto) 1.4, Baso % (Auto) 0.6, Absolute Neuts (auto) 4.0, Absolute Lymphs (auto) 2.42, Nucleated RBC % 0 10/27/19 09:00: Sodium 140, Potassium 3.6, Chloride 109 H, Carbon Dioxide 26.0, Anion Gap 5, BUN 11, Creatinine 0.86, Estim Creat Clear Calc 62.27, Est GFR (MDRD) Af Amer 94, Est GFR (MDRD) Non-Af 78, BUN/Creatinine Ratio 12.9, Glucose 94, Calcium 8.7, Total Bilirubin 0.30, AST 14 L, ALT 25, Alkaline Phosphatase 67, Troponin I < 0.015, Total Protein 7.9, Albumin 3.2, Globulin 4.7 H, Albumin/Globulin Ratio 0.7 L Clinical Impression(s) from Imaging Studies Chest X-Ray 10/27/19 08:10 IMPRESSION: Increased markings are seen in the medial aspect of the right lung base. Follow-up is recommended. Electronically Signed: Gael Palumbo, at 9:53 EDT , Service support , Assessment/Plan All Active Problems Acute opioid withdrawal (Acute) This is a 39 years old female patient presented to the emergency room requesting admission for medical stabilization due to acute opioid withdrawal and also found to have mild acute asthma exacerbation. #1 acute opiate withdrawal: With previous admissions for medical stabilization and relapse. Patient was admitted back on June,, was discharged, followed up with the [facility], stayed sober for 2 months and then relapsed using IV drugs 1 month ago after the of her daughter. She states that she has been using IV either heroin or fentanyl, she is not sure. Last use was last night. CBC, BMP, LFTs were normal. Serum (was negative. Urine drug screen was positive for opioids. Blood alcohol level was 5. Patient seemed to be determined and serious about detoxification. I informed the patient that if she is not serious and determined about it, this program will not help her. Plan: Admit to MedSurg floor, initiate tapering Subutex, PRN Catapres, Bentyl, gabapentin, Vistaril, Imodium, methocarbamol, Zofran and trazodone, consult [facility] program. #2 acute mild asthma exacerbation: Patient complained of shortness of breath and wheezing. Chest x-ray reviewed, right basilar atelectasis, no infiltrate. She is afebrile, no leukocytosis. I doubt pneumonia. Plan: DuoNeb every 6 hours, albuterol PRN, incentive parameter. #3 history of ovarian cancer: Status post hysterectomy and bilateral salpingo- oophorectomy, status post chemotherapy back in 2006, stable, in remission. #4 anxiety/depression: Continue home medications when home medications updated. #5 chronic hepatitis C : LFT was unremarkable. Recommend referral to infectious disease as outpatient. #6 tobacco abuse: NicoDerm patch. #7 DVT prophylaxis: Low risk patient, no prophylaxis indicated. This note was generated with [employer] software. It may contain incorrect words, spelling, and punctuation that were not noted in checking the note before signing. Inpatient E&M: 87984 Init Hosp L2
--- NOTE | 2019-10-27 11:10 | NURSING ---
MED SURG DETOX ASHELFAH
--- NOTE | 2019-10-27 11:20 | CM.ED ---
SOCIAL WORK Informant: Dr. Mercedes Reason for Consult: Substance Abuse Patient admitted to [facility]. Patient reported last use of heroin was yesterday. Patient states has been using on/off for 15 years. Call to Kim at [facility] to update on patient's admission. No answer, left message on confidential voicemail. Mahnaz Saab MSW, PRODUCTION MATERIAL HANDLER
[2019-10-27] MEDS: Ipratropium/Albuterol Sulfate 3 ML AMPUL.NEB INHALATION ×2 (11:21→19:15)
[2019-10-27] MEDS: cloNIDine HCl 0.1 MG Tablet PO ×2 (13:04→21:09)
[2019-10-27] MEDS: Dicyclomine 10 MG Capsule 20 MG PO ×2 (13:04→19:19)
[2019-10-27] MEDS: Methocarbamol 750 MG Tablet 1500 MG PO ×2 (13:04→19:19)
[2019-10-27] MEDS: hydrOXYzine PAM 25 MG Capsule 50 MG PO ×2 (13:30→19:56)
[2019-10-27] MEDS: Buprenorphine HCl 2 MG TAB.SUBL SL ×2 (13:31→21:09)
[2019-10-27] MEDS: Gabapentin 300 MG Capsule PO (15:16)
[2019-10-27] MEDS: Loperamide 2 MG Capsule PO ×2 (15:16→19:56)
[2019-10-27] MEDS: Ondansetron 8 MG Tablet PO (17:12)
[2019-10-28] VITALS (7 sets, daily range): BP systolic 98–126; BP diastolic 59–93; PULSE 78–90; RESP 16–20; TEMP 36.3–36.8; O2SAT 97–99
[2019-10-28] MEDS: traZODone 100 MG Tablet PO ×2 (00:10→21:58)
[2019-10-28] MEDS: Gabapentin 300 MG Capsule PO ×3 (00:10→21:58)
[2019-10-28] MEDS: Loperamide 2 MG Capsule PO (00:10)
[2019-10-28] MEDS: Ondansetron 8 MG Tablet PO (04:22)
[2019-10-28] MEDS: Methocarbamol 750 MG Tablet 1500 MG PO ×3 (04:22→16:52)
[2019-10-28] MEDS: hydrOXYzine PAM 25 MG Capsule 50 MG PO ×3 (04:22→16:52)
[2019-10-28] MEDS: Dicyclomine 10 MG Capsule 20 MG PO ×3 (04:22→16:52)
[2019-10-28] MEDS: Buprenorphine HCl 2 MG TAB.SUBL SL ×3 (05:33→21:54)
[2019-10-28] MEDS: Ipratropium/Albuterol Sulfate 3 ML AMPUL.NEB INHALATION (06:35)
--- NOTE | 2019-10-28 11:58 | PCM.PN.HOSP ---
Patient Problems: Active and Suspected Problems Substance abuse (Acute) Cough (Acute) Subjective: No issues overnight, appears to be doing well. Resting in bed Vitals/I&O's: Vital Signs Temp Pulse Resp BP Pulse Ox 97.6 F L 82 16 98/59 L 97 10/28/19 09:52 10/28/19 09:52 10/28/19 09:52 10/28/19 09:52 10/28/19 09:52 Oxygen Delivery Method Room Air Weight: 109 lb 15.994 oz Body Mass Index (BMI) 17.7 Intake and Output for Last 24 Hours 10/26/19 10/27/19 10/28/19 23:59 23:59 23:59 Intake Total 700 / 700 1200 / 1200 Balance 700 / 700 1200 / 1200 General: Alert, Oriented x3, Cooperative, No apparent distress HEENT: Atraumatic, PERRLA, EOMI, Normocephalic Oral: Moist Mucosa Neck: Supple, No JVD Lungs: Clear to auscultation, Normal air movement, No rhonchi, No wheeze, No rales, Diminished Cardiovascular: Regular rate, Regular Rhythm, Normal S1, Normal S2, No murmurs Abdomen: Soft, Non Tender, Non-Distended, No Hepato-splenomegaly Extremities: No edema, Capillary Refill Less than 3 Seconds Skin: No rashes, No breakdown Neurological: Neuro grossly intact, Sensory exam intact to light touch and pain Psych/Mental Status: Normal Affect, Appropriate Current Medications Acetaminophen (Tylenol) 500 mg PO Q4H PRN PRN PRN Reason: Temp > 100.4 F Albuterol Sulfate (Ventolin Aerosols) 2.5 mg INHALATION Q4H PRN PRN PRN Reason: Shortness of breath, wheezing Albuterol/Ipratropium (Duoneb) 3 ml INHALATION Q6H.RT ANJELICA Last Admin: 10/28/19 06:35 Dose: 3 ml Documented by: Buprenorphine HCl (Buprenorphine Hcl) 4 mg SL Q8H ANJELICA; Taper Stop: 10/30/19 13:29 Last Admin: 10/28/19 05:33 Dose: 4 mg Documented by: Clonidine (Catapres) 0.1 mg PO Q8H PRN PRN PRN Reason: RESTLESSNESS Last Admin: 10/27/19 21:09 Dose: 0.1 mg Documented by: Dicyclomine HCl (Bentyl) 20 mg PO Q6H PRN PRN PRN Reason: Abdominal Discomfort Last Admin: 10/28/19 10:01 Dose: 20 mg Documented by: Gabapentin (Neurontin) 300 mg PO Q8H PRN PRN PRN Reason: moderate to severe anxiety Last Admin: 10/28/19 10:01 Dose: 300 mg Documented by: Guaifenesin (Robitussin) 10 ml PO Q6H PRN PRN PRN Reason: Cough, congestion Hydroxyzine Pamoate (Vistaril Pamoate Capsule) 50 mg PO Q6H PRN PRN PRN Reason: mild anxiety Last Admin: 10/28/19 10:02 Dose: 50 mg Documented by: Loperamide HCl (Imodium) 2 mg PO Q4H PRN PRN PRN Reason: LOOSE STOOLS Last Admin: 10/28/19 00:10 Dose: 2 mg Documented by: Methocarbamol (Methocarbamol) 1,500 mg PO Q6H PRN PRN PRN Reason: MUSCLE SPASM Last Admin: 10/28/19 10:01 Dose: 1,500 mg Documented by: Nicotine (Nicoderm Cq (Pbkc)) 21 mg TRANSDERM. DAILY ANJELICA Last Admin: 10/28/19 10:01 Dose: Not Given Documented by: Nutritional Formula (Lactose Free) (Ensure Enlive) 120 ml PO 4X/DAY ANJELICA Last Admin: 10/28/19 10:01 Dose: Not Given Documented by: Ondansetron HCl (Zofran) 8 mg PO Q8H PRN PRN PRN Reason: NAUSEA Last Admin: 10/28/19 04:22 Dose: 8 mg Documented by: Trazodone HCl (Desyrel) 100 mg PO QHS PRN PRN PRN Reason: INSOMNIA Last Admin: 10/28/19 00:10 Dose: 100 mg Documented by: STROKE Vital Signs/Narrative: Vital Signs Temp Pulse Resp BP Pulse Ox 10/28/19 09:52 97.6 F L 82 16 98/59 L 97 Medical Necessity - Tobacco Use Smoking Status: Current every day smoker Tobacco Use: Cigarettes Assessment/Plan All Active Problems Substance abuse (Acute) Cough (Acute) Acute opioid withdrawal (Acute) 1. Acute opiate withdrawal/anxiety/depression/chronic hepatitis C/tobacco abuse -Continue with the opiate withdrawal protocol, she relapsed after the of her daughter but had been sober for 2 months after her previous admission -Continue with symptomatic management -Continue with Derm patch -She will need to follow-up with infectious disease as an outpatient for hepatitis C once she remains sober -Recommend she follow-up with PCP for management she will follow-up with 180 on discharge 2. Acute mild asthma exacerbation -Doing well with the incentive spirometer and duo nebs -Appears improved 3. History of ovarian cancer -She had hysterectomy?BSO as well as chemotherapy in 2006 -In remission and stable DVT: Ambulation Inpatient E&M: 35787 Subs Hosp L2
--- NOTE | 2019-10-28 13:47 | ADDICTION ---
This commercial lines underwriter met with patient in her room to conduct ASAM assessment, mental status exam, [facility] release of information and DUDIT. Patient was alert and oriented x4 and participated appropriately throughout session. She verbalized internal motivation regarding behavior change and requested a referral to the [facility] ([facility]). Referral has been sent to [facility] Admissions Team. Patient appears appropriate for the 4.0 Medically Managed Intensive Inpatient services aeb ASAM assessment. This commercial lines underwriter will fax assessment documentation to [facility].
[2019-10-28] MEDS: cloNIDine HCl 0.1 MG Tablet PO (16:52)
[2019-10-28] MEDS: Ensure Clear 120 ML Liquid PO (16:54)
[2019-10-28] MEDS: Albuterol 2.5 MG/3 ML VIAL.NEB. INHALATION (22:01)
[2019-10-29] MEDS: Ondansetron 8 MG Tablet PO ×2 (01:48→20:40)
[2019-10-29] MEDS: Methocarbamol 750 MG Tablet 1500 MG PO ×3 (01:52→20:41)
[2019-10-29] MEDS: Dicyclomine 10 MG Capsule 20 MG PO ×3 (01:52→20:41)
[2019-10-29] MEDS: hydrOXYzine PAM 25 MG Capsule 50 MG PO ×3 (01:52→18:23)
[2019-10-29 05:16] VITALS: BP 142/90; PULSE 86; RESP 18; TEMP 36.9; O2SAT 98
[2019-10-29] MEDS: Buprenorphine HCl 2 MG TAB.SUBL SL ×2 (05:18→12:54)
[2019-10-29] MEDS: cloNIDine HCl 0.1 MG Tablet PO ×2 (05:18→14:39)
[2019-10-29 06:55] VITALS: PULSE 56; RESP 18
[2019-10-29] MEDS: Ipratropium/Albuterol Sulfate 3 ML AMPUL.NEB INHALATION ×2 (06:55→18:53)
--- NOTE | 2019-10-29 08:39 | ADDICTION ---
This script writer met with patient in her room to complete discharge planning and to provide support. Patient reported that she has been vomiting and is not feeling well. This script writer informed charge nurse of patient's complaints. This script writer informed patient that she is scheduled to admit into the [facility] on October 31 at 9am. She was given instructions to present to [facility]'s main office to meet with nursing and will be transported to the treatment facility upon completion of medical intake. She is amiable to this recommendation.
[2019-10-29 08:48] VITALS: BP 145/99; PULSE 64; RESP 16; TEMP 37; O2SAT 100
[2019-10-29] MEDS: proCHLORPERazine 5 MG Tablet 10 MG PO ×2 (09:05→18:23)
--- NOTE | 2019-10-29 10:50 | PN_ITS ---
Patient Problems: Active and Suspected Problems Substance abuse (Acute) Cough (Acute) Subjective: Having significant nausea, diaphoresis. She is also having some tremors. Vitals/I&O's: Vital Signs Temp Pulse Resp BP Pulse Ox 98.6 F 64 16 145/99 H 100 10/29/19 08:48 10/29/19 08:48 10/29/19 08:48 10/29/19 08:48 10/29/19 08:48 Oxygen Delivery Method Room Air Weight: 109 lb 15.994 oz Body Mass Index (BMI) 17.7 Intake and Output for Last 24 Hours 10/27/19 10/28/19 10/29/19 23:59 23:59 23:59 Intake Total 700 / 700 2350 / 2500 200 / 200 Balance 700 / 700 2350 / 2500 200 / 200 General: Alert, Oriented x3, Cooperative, diaphoretic and nauseated HEENT: Atraumatic, PERRLA, EOMI, Normocephalic Oral: Moist Mucosa Neck: Supple, No JVD Lungs: Clear to auscultation, Normal air movement, No rhonchi, No wheeze, No rales, Diminished Cardiovascular: Regular rate, Regular Rhythm, Normal S1, Normal S2, No murmurs Abdomen: Soft, Non Tender, Non-Distended, No Hepato-splenomegaly Extremities: No edema, Capillary Refill Less than 3 Seconds Skin: No rashes, No breakdown Neurological: Neuro grossly intact, Sensory exam intact to light touch and pain Psych/Mental Status: Normal Affect, Appropriate Current Medications Acetaminophen (Tylenol) 500 mg PO Q4H PRN PRN PRN Reason: Temp > 100.4 F Albuterol Sulfate (Ventolin Aerosols) 2.5 mg INHALATION Q4H PRN PRN PRN Reason: Shortness of breath, wheezing Last Admin: 10/28/19 22:01 Dose: 2.5 mg Documented by: Albuterol/Ipratropium (Duoneb) 3 ml INHALATION Q6H.RT ANJELICA Last Admin: 10/29/19 06:55 Dose: 3 ml Documented by: Buprenorphine HCl (Buprenorphine Hcl) 2 mg SL Q8H ANJELICA; Taper Stop: 10/30/19 13:29 Last Admin: 10/29/19 05:18 Dose: 2 mg Documented by: Clonidine (Catapres) 0.1 mg PO Q8H PRN PRN PRN Reason: RESTLESSNESS Last Admin: 10/29/19 05:18 Dose: 0.1 mg Documented by: Dicyclomine HCl (Bentyl) 20 mg PO Q6H PRN PRN PRN Reason: Abdominal Discomfort Last Admin: 10/29/19 09:04 Dose: 20 mg Documented by: Gabapentin (Neurontin) 300 mg PO Q8H PRN PRN PRN Reason: moderate to severe anxiety Last Admin: 10/28/19 21:58 Dose: 300 mg Documented by: Guaifenesin (Robitussin) 10 ml PO Q6H PRN PRN PRN Reason: Cough, congestion Hydroxyzine Pamoate (Vistaril Pamoate Capsule) 50 mg PO Q6H PRN PRN PRN Reason: mild anxiety Last Admin: 10/29/19 01:52 Dose: 50 mg Documented by: Loperamide HCl (Imodium) 2 mg PO Q4H PRN PRN PRN Reason: LOOSE STOOLS Last Admin: 10/28/19 00:10 Dose: 2 mg Documented by: Methocarbamol (Methocarbamol) 1,500 mg PO Q6H PRN PRN PRN Reason: MUSCLE SPASM Last Admin: 10/29/19 01:52 Dose: 1,500 mg Documented by: Nicotine (Nicoderm Cq (Pbkc)) 21 mg TRANSDERM. DAILY [facility] Last Admin: 10/29/19 09:05 Dose: Not Given Documented by: Nutritional Formula (Lactose Free) (Ensure Clear) 120 ml PO 4X/DAY ANJELICA Last Admin: 10/29/19 09:05 Dose: Not Given Documented by: Ondansetron HCl (Zofran) 8 mg PO Q8H PRN PRN PRN Reason: NAUSEA Last Admin: 10/29/19 01:48 Dose: 8 mg Documented by: Prochlorperazine Maleate (Compazine Tablet) 10 mg PO Q4H PRN PRN PRN Reason: NAUSEA/VOMITING Last Admin: 10/29/19 09:05 Dose: 10 mg Documented by: Trazodone HCl (Desyrel) 100 mg PO QHS PRN PRN PRN Reason: INSOMNIA Last Admin: 10/28/19 21:58 Dose: 100 mg Documented by: STROKE Vital Signs/Narrative: Vital Signs Temp Pulse Resp BP Pulse Ox 10/29/19 08:48 98.6 F 64 16 145/99 H 100 10/29/19 06:55 56 L 18 Medical Necessity - Tobacco Use Smoking Status: Current every day smoker Tobacco Use: Cigarettes Assessment/Plan All Active Problems Substance abuse (Acute) Cough (Acute) Acute opioid withdrawal (Acute) 1. Acute opiate withdrawal/anxiety/depression/chronic hepatitis C/tobacco abuse -Continue with the opiate withdrawal protocol, she relapsed after the of her daughter but had been sober for 2 months after her previous admission -Continue with symptomatic management -Continue with nicotine patch -She will need to follow-up with infectious disease as an outpatient for hepatitis C once she remains sober -Recommend she follow-up with PCP for management she will follow-up with 180 on friday for inpatient rehab 2. Acute mild asthma exacerbation -Doing well with the incentive spirometer and duo nebs -Appears improved 3. History of ovarian cancer -She had hysterectomy?BSO as well as chemotherapy in 2006 -In remission and stable DVT: Ambulation Inpatient E&M: 21260 Subs Hosp L2
[2019-10-29] MEDS: Gabapentin 300 MG Capsule PO ×2 (11:16→20:41)
[2019-10-29 14:34] VITALS: BP 157/105; PULSE 60; RESP 16; TEMP 37.2; O2SAT 99
[2019-10-29] MEDS: proMETHazine 25 MG/ML Syringe 12.5 MG IM ×2 (14:39→23:45)
[2019-10-29 18:53] VITALS: PULSE 69; RESP 18
[2019-10-29] MEDS: traZODone 100 MG Tablet PO (20:41)
[2019-10-29 20:46] VITALS: BP 155/101; PULSE 92; RESP 20; TEMP 36.8; O2SAT 98
[2019-10-30 00:40] VITALS: BP 170/102; PULSE 67; RESP 16; TEMP 36.4; O2SAT 100
[2019-10-30] MEDS: cloNIDine HCl 0.1 MG Tablet PO (00:41)
[2019-10-30] MEDS: Buprenorphine HCl 2 MG TAB.SUBL SL (00:41)
[2019-10-30] MEDS: hydrOXYzine PAM 25 MG Capsule 50 MG PO ×2 (00:41→12:48)
[2019-10-30] MEDS: cloNIDine HCl 0.1 MG Tablet 0.2 MG PO (01:04)
[2019-10-30 05:30] VITALS: BP 103/75; PULSE 69; RESP 16; TEMP 36.7; O2SAT 98
[2019-10-30 09:46] VITALS: BP 96/59; PULSE 73; RESP 18; TEMP 36.9; O2SAT 93
[2019-10-30] MEDS: proCHLORPERazine 5 MG Tablet 10 MG PO ×2 (09:54→15:04)
[2019-10-30] MEDS: Dicyclomine 10 MG Capsule 20 MG PO (09:54)
[2019-10-30] MEDS: Methocarbamol 750 MG Tablet 1500 MG PO (09:54)
--- NOTE | 2019-10-30 10:47 | PN_ITS ---
Patient Problems: Active and Suspected Problems Substance abuse (Acute) Cough (Acute) Subjective: Diaphoretic however feels just a little bit better than she did yesterday. Yesterday she felt very terrible and had significant nausea. Vitals/I&O's: Vital Signs Temp Pulse Resp BP Pulse Ox 98.4 F 73 18 96/59 L 93 10/30/19 09:46 10/30/19 09:46 10/30/19 09:46 10/30/19 09:46 10/30/19 09:46 Oxygen Delivery Method Room Air Weight: 109 lb 15.994 oz Body Mass Index (BMI) 17.7 Intake and Output for Last 24 Hours 10/28/19 10/29/19 10/30/19 23:59 23:59 23:59 Intake Total 2350 / 2500 200 / 500 500 / 500 Output Total 400 / 400 Balance 2350 / 2500 200 / 100 100 / 100 General: Alert, Oriented x3, Cooperative, diaphoretic and nauseated HEENT: Atraumatic, PERRLA, EOMI, Normocephalic Oral: Moist Mucosa Neck: Supple, No JVD Lungs: Clear to auscultation, Normal air movement, No rhonchi, No wheeze, No rales, Diminished Cardiovascular: Regular rate, Regular Rhythm, Normal S1, Normal S2, No murmurs Abdomen: Soft, Non Tender, Non-Distended, No Hepato-splenomegaly Extremities: No edema, Capillary Refill Less than 3 Seconds Skin: No rashes, No breakdown Neurological: Neuro grossly intact, Sensory exam intact to light touch and pain Psych/Mental Status: Normal Affect, Appropriate Current Medications Acetaminophen (Tylenol) 500 mg PO Q4H PRN PRN PRN Reason: Temp > 100.4 F Albuterol Sulfate (Ventolin Aerosols) 2.5 mg INHALATION Q4H PRN PRN PRN Reason: Shortness of breath, wheezing Last Admin: 10/28/19 22:01 Dose: 2.5 mg Documented by: Albuterol/Ipratropium (Duoneb) 3 ml INHALATION Q6H.RT ANJELICA Last Admin: 10/30/19 07:05 Dose: Not Given Documented by: Buprenorphine HCl (Buprenorphine Hcl) 2 mg SL Q12H ANJELICA; Taper Stop: 10/30/19 13:29 Last Admin: 10/30/19 00:41 Dose: 2 mg Documented by: Clonidine (Catapres) 0.1 mg PO Q8H PRN PRN PRN Reason: RESTLESSNESS Last Admin: 10/30/19 00:41 Dose: 0.1 mg Documented by: Dicyclomine HCl (Bentyl) 20 mg PO Q6H PRN PRN PRN Reason: Abdominal Discomfort Last Admin: 10/30/19 09:54 Dose: 20 mg Documented by: Gabapentin (Neurontin) 300 mg PO Q8H PRN PRN PRN Reason: moderate to severe anxiety Last Admin: 10/29/19 20:41 Dose: 300 mg Documented by: Guaifenesin (Robitussin) 10 ml PO Q6H PRN PRN PRN Reason: Cough, congestion Hydroxyzine Pamoate (Vistaril Pamoate Capsule) 50 mg PO Q6H PRN PRN PRN Reason: mild anxiety Last Admin: 10/30/19 00:41 Dose: 50 mg Documented by: Loperamide HCl (Imodium) 2 mg PO Q4H PRN PRN PRN Reason: LOOSE STOOLS Last Admin: 10/28/19 00:10 Dose: 2 mg Documented by: Methocarbamol (Methocarbamol) 1,500 mg PO Q6H PRN PRN PRN Reason: MUSCLE SPASM Last Admin: 10/30/19 09:54 Dose: 1,500 mg Documented by: Nicotine (Nicoderm Cq (Pbkc)) 21 mg TRANSDERM. DAILY [facility] Last Admin: 10/30/19 09:49 Dose: Not Given Documented by: Nutritional Formula (Lactose Free) (Ensure Clear) 120 ml PO 4X/DAY [facility] Last Admin: 10/30/19 09:49 Dose: Not Given Documented by: Ondansetron HCl (Zofran) 8 mg PO Q8H PRN PRN PRN Reason: NAUSEA Last Admin: 10/29/19 20:40 Dose: 8 mg Documented by: Ondansetron HCl (Zofran) 4 mg IV Q6H PRN PRN PRN Reason: NAUSEA/VOMITING Prochlorperazine Maleate (Compazine Tablet) 10 mg PO Q4H PRN PRN PRN Reason: NAUSEA/VOMITING Last Admin: 10/30/19 09:54 Dose: 10 mg Documented by: Promethazine HCl (Phenergan) 12.5 mg IM Q6H PRN PRN PRN Reason: NAUSEA/VOMITING Last Admin: 10/29/19 23:45 Dose: 12.5 mg Documented by: Trazodone HCl (Desyrel) 100 mg PO QHS PRN PRN PRN Reason: INSOMNIA Last Admin: 10/29/19 20:41 Dose: 100 mg Documented by: STROKE Vital Signs/Narrative: Vital Signs Temp Pulse Resp BP Pulse Ox 10/30/19 09:46 98.4 F 73 18 96/59 L 93 Medical Necessity - Tobacco Use Smoking Status: Current every day smoker Tobacco Use: Cigarettes Assessment/Plan All Active Problems Substance abuse (Acute) Cough (Acute) Acute opioid withdrawal (Acute) 1. Acute opiate withdrawal/anxiety/depression/chronic hepatitis C/tobacco abuse -Continue with the opiate withdrawal protocol, she relapsed after the of her daughter but had been sober for 2 months after her previous admission -Continue with symptomatic management -Continue with nicotine patch -She will need to follow-up with infectious disease as an outpatient for hepatitis C once she remains sober -Recommend she follow-up with PCP for management, she will follow-up with 180 on friday for inpatient rehab 2. Acute mild asthma exacerbation -Doing well with the incentive spirometer and duo nebs -Appears improved 3. History of ovarian cancer -She had hysterectomy?BSO as well as chemotherapy in 2006 -In remission and stable DVT: Ambulation Inpatient E&M: 83986 Subs Hosp L2
[2019-10-30 14:05] VITALS: PULSE 72; RESP 18
[2019-10-30] MEDS: Ipratropium/Albuterol Sulfate 3 ML AMPUL.NEB INHALATION (14:05)
[2019-10-30 15:00] VITALS: BP 105/70; PULSE 79; RESP 16; TEMP 36.8; O2SAT 96
[2019-10-30] MEDS: Gabapentin 300 MG Capsule PO (15:04)
[2019-10-30] MEDS: Acetaminophen 500 MG Tablet PO (15:04)
== END 2019-10-30 16:34 | disposition left against medical advice (07) ==
LOC: ED 09:22 → MS3 11:32
PROVIDERS: Admitting Provider Hospitalist; Emergency Provider Emergency Medicine; Visit Provider Family Medicine
DX: F11.23 Opioid dependence with withdrawal (principal); F17.210 Nicotine dependence, cigarettes, uncomplicated; J45.901 Unspecified asthma with (acute) exacerbation; B18.2 Chronic viral hepatitis C; F41.9 Anxiety disorder, unspecified; F32.9 Major depressive disorder, single episode, unspecified; Z85.43 Personal history of malignant neoplasm of ovary
CPT/HCPCS: 71045; 80053; 80307; 80320; 84484; 84703; 85025; 87635; 93005; 94640; 94799; 97802; 99251; 99283; 99406; H0012; G0463; G0480; U0003